=== PATIENT | male | born 1960 | race Caucasian/White ===

== ENCOUNTER → 2016-10-15 | Outpatient (REF) | payer MEDICARE, MEDICAID ==
[~2016-10-15] MED LIST: ASPI1TAB PO; CLOP75TA2 PO; GABA300C2 PO; GLYB5TAB5 PO; LISI5TAB PO; NORCOBULK PO; TRAZ50TA2 PO; VITATAB11 PO
[2016-10-15 12:32] LABS: ALBUMIN/GLOBULIN RATIO 1.43 (1.00-1.93); ALKALINE PHOSPHATASE 100 U/L (45-117); ANION GAP 10 MEQ/L (8-16); BILIRUBIN,TOTAL 0.3 MG/DL (0.2-1.0); BLOOD UREA NITROGEN 15 MG/DL (7-18); CALCIUM LEVEL 8.4 MG/DL (8.5-10.1); CARBON DIOXIDE LEVEL 28 MEQ/L (21-32); CHLORIDE LEVEL 103 MEQ/L (98-107); CREATININE FOR GFR 0.91 MG/DL (0.70-1.30); GLOMERULAR FILTRATION RATE > 60.0 (>56); GLUCOSE, FASTING 185 MG/DL (70-105); POTASSIUM SERUM 4.1 MEQ/L (3.5-5.1); SODIUM LEVEL 141 MEQ/L (136-145); TOTAL PROTEIN 6.8 GM/DL (6.4-8.2)
[2016-10-15 13:06] LABS: ALT/SGPT 54 U/L (12-78); AST/SGOT 18 U/L (15-37)
== END ==
LOC: M LABDRAW1 11:38
PROVIDERS: ATTEND Family Medicine
DX: E11.9 Type 2 diabetes mellitus without complications (principal)

== ENCOUNTER → 2017-04-05 | Outpatient (CLI) | payer MEDICARE, MEDICAID ==
[~2017-04-05] MED LIST changes: +AMLO5TAB2 PO; +ATOR40TA75 PO; +CEPH500C PO; +CLEO300C2 PO; +GABA600T PO; +HYDR12.55 PO; +INSUDET SC; +INVO300T PO; +KEFL500C17 PO; +LOSA100T36 PO; +METF750T PO; +METF850T4 PO; +NORC1TAB4 PO; +NORCOTAB PO; +OMEP10CASR PO; +OXYC1TAB23 PO; +TYLE325T5 PO; +ZOLO100T PO
--- NOTE | 2017-04-10 12:02 | SLEEPCENT ---
DATE OF PROCEDURE: 04/05/2017 REFERRING PHYSICIAN: Dr. Alex Chavarria INTERPRETATION: Nocturnal polysomnography was performed due to concern for the obstructive sleep apnea syndrome in this patient with a history of excessive somnolence and atherosclerotic disease. 6 hours and 45 minutes of data were reviewed. There were 261 minutes of sleep identified. Sleep latency was mildly prolonged at 34 minutes. REM latency was quite prolonged at 278 minutes. Sleep architecture showed poor progression. There was one REM period late in the study. Overall sleep efficiency is 65%. EKG showed a regular rhythm with intraventricular conduction delay. Average heart rate 57 beats per minute. EEG showed reasonably normal waveforms for awake and sleep. There were 100 respiratory events identified of 10 seconds in duration or greater for an apnea/hypopnea index of 22.9. The events were primarily obstructive not exclusive to sleep stage nor body posture. Arousals from respiratory events occurred 11.2 times per hour. Oxygen desaturations were seen in the upper 80s. There was some limb activity noted as well with 2-3 trains of 30 events. Limb movement arousal index was 7.3. IMPRESSION: 1. Moderate to severe obstructive sleep apnea syndrome (G47.33) apnea/hypopnea index 22.9. 2. Mild periodic limb movement disorder (G47.61). Limb movement arousal index 7.3. RECOMMENDATION: The patient should be encouraged to return to the sleep disorder center for pressure therapy. In the interim alcohol and sedative avoidance should be practiced and caution exercised during the operating of motor vehicles. Pending results of pressure therapy, interventions to address the patient's limb activity may also be helpful.
== END ==
LOC: M SLEEP 20:00
PROVIDERS: ATTEND Nurse Practitioner Adult Health
DX: G47.30 Sleep apnea, unspecified (principal)

== ENCOUNTER → 2017-05-19 | Outpatient (CLI) | payer MEDICARE, MEDICAID ==
--- NOTE | 2017-05-23 10:51 | SLEEPCENT ---
DATE OF STUDY: 05/19/2017 ORDERED BY: Ольга Loo NP Nocturnal polysomnography was performed for the titration of pressure therapy in this patient with obstructive sleep apnea syndrome, apnea-hypopnea index of 23. For testing, a ResMed Quattro full face mask of small size was used. An initial pressure of 4 cm of water pressure was applied to the circuit and the lights were extinguished. 7 hours and 17 minutes of data were reviewed. There were 316 minutes of sleep identified. Sleep latency was prolonged at 38 minutes. Rapid eye movement (REM) latency very prolonged at 320 minutes. Sleep architecture remained somewhat fragmented with poor progression until late in the test. There were two REM periods identified. Overall sleep efficiency was fair at 73.1%, but there was a significant reduction in REM time. The patient's EKG showed a sinus rhythm with an average heart rate of 54 beats per minute. EEG showed some coarsening in the background, alpha intrusion into non-REM sleep. No focal events were identified. Persistence of respiratory events prompted an increase in CPAP from 4 to 10, then despite optimal mask fit and minimal air leak, the patient was changed to a bilevel device late in the study. Some persistence of airflow obstruction was seen despite this pressure. There was at that point insufficient time to further titrate. Best sleep was seen on a bilevel therapy at an inspiratory pressure of 12 over expiratory pressure of 8. Some limb activity was again seen during this study. His limb movement arousal index was 14.6. IMPRESSION: 1. Obstructive sleep apnea syndrome (G47.33). 2. Periodic limb movement disorder (G47.61). RECOMMENDATION: Initiation of pressure therapy with a bilevel device, inspiratory pressure of 12 over expiratory pressure of 8 is recommended. Close clinical followup would be prudent given the limited time of bilevel therapy during the titration. If the patient's symptoms are persistent, a retitration from BiPAP may be needed. Once respiratory obstructive events have been addressed, interventions to reduce the frequency of arousals from limb activity may be helpful as well. cc: Alex Chavarria MD
== END ==
LOC: M SLEEP 19:42
PROVIDERS: ATTEND Nurse Practitioner Adult Health
DX: G47.33 Obstructive sleep apnea (adult) (pediatric) (principal)

== ENCOUNTER 2017-07-16 03:36 | Emergency (ER) | payer MEDICARE, MEDICAID ==
[~2017-07-16] VITALS: Ht 170.2 cm; Wt 90.0 kg
[~2017-07-16 03:36] MED LIST changes: -AMLO5TAB2 PO; -ATOR40TA75 PO; -CEPH500C PO; -CLEO300C2 PO; -GABA600T PO; -HYDR12.55 PO; -INSUDET SC; -INVO300T PO; -KEFL500C17 PO; -LOSA100T36 PO; -METF750T PO; -METF850T4 PO; -NORC1TAB4 PO; -NORCOTAB PO; -OMEP10CASR PO; -OXYC1TAB23 PO; -TYLE325T5 PO; -ZOLO100T PO
[2017-07-16] MEDS ORDERED: ATOR40TA75 PO (03:50)
[2017-07-16] MEDS ORDERED: INVO300T PO (03:50)
[2017-07-16] MEDS ORDERED: OMEP10CASR PO (03:50)
[2017-07-16] MEDS ORDERED: LOSA100T36 PO (03:50)
[2017-07-16] MEDS ORDERED: HYDR12.55 PO (03:50)
[2017-07-16] MEDS ORDERED: ZOLO100T PO (03:50)
[2017-07-16] MEDS ORDERED: AMLO5TAB2 PO (03:50)
[2017-07-16] MEDS ORDERED: INSUDET SC (03:50)
[2017-07-16] MEDS ORDERED: METF850T4 PO (03:50)
[2017-07-16] MEDS ORDERED: MORPHINE 4 MG/ML 1ML SYRINGE IV PRN (04:15)
[2017-07-16] MEDS ORDERED: ONDANSETRON 4MG/2ML VIAL (J2405) IV ONE (04:15)
[2017-07-16 04:35] LABS: BASO % 0.1 % (0.0-1.0); EOS # 0.1 10^3/uL (0.0-0.50); EOS % 1.2 % (0.0-3.0); IMMATURE GRANULOCYTE % 0.3 % (0-0); LYMPH # 0.8 10^3/uL (1.5-4.5); LYMPH % 9.7 % (24.0-44.0); MEAN CORPUSCULAR HEMOGLOBIN 27.6 pg (27.0-33.0); MEAN CORPUSCULAR HGB CONC 33.1 g/dl (32.0-36.5); MEAN CORPUSCULAR VOLUME 83.6 fl (80.0-96.0); MONO # 0.7 10^3/uL (0.0-0.8); MONO % 8.2 % (0.0-5.0); NEUTROPHILS # 6.9 10^3/uL (1.8-7.7); NEUTROPHILS % 80.5 % (36.0-66.0); PLATELET COUNT, AUTOMATED 165 10^3/uL (150-450); RED CELL DISTRIBUTION WIDTH 14.2 % (11.5-14.5); WHITE BLOOD COUNT 8.6 10^3/uL (4.0-10.0)
[2017-07-16 04:53] LABS: ANION GAP 6 MEQ/L (8-16); BLOOD UREA NITROGEN 22 MG/DL (7-18); CALCIUM LEVEL 8.7 MG/DL (8.5-10.1); CARBON DIOXIDE LEVEL 29 MEQ/L (21-32); CHLORIDE LEVEL 102 MEQ/L (98-107); CREATININE FOR GFR 0.79 MG/DL (0.70-1.30); GLOMERULAR FILTRATION RATE > 60.0 (>56); GLUCOSE, FASTING 245 MG/DL (70-105); POTASSIUM SERUM 4.9 MEQ/L (3.5-5.1); SODIUM LEVEL 137 MEQ/L (136-145)
--- NOTE | 2017-07-16 06:50 | REPUSA ---
CLINICAL HISTORY: Suspected scrotal abscess. TECHNIQUE: Realtime sonographic images were obtained in multiple projections. COMMENTS: The right testicle measures 4.5x2.3x3 cm. The left testicle measures 4.1x2x2.9 cm. Normal bilateral testicular flow is noted. There are chronic benign calcifications of the left scrotal wall. The left epididymal head measures 1.8 mm. Complex right scrotal wall fluid collection measuring 2.4x1.5x2 cm suggestive of abscess formation. There is a large right hydrocele containing debris. IMPRESSION: Large right hydrocele containing debris. Chronic benign calcifications of the left scrotal wall. Epididymal head cyst measuring 1.8 mm. Right scrotal abscess formation. No evidence of testicular torsion. Thank you for your kind referral of this patient.
[2017-07-16] MEDS ORDERED: cefTRIAXone SOD 1 GM in D5W 50 ML IV ONE (07:15)
[2017-07-16] MEDS ORDERED: KEFL500C17 PO (07:23)
[2017-07-16] MEDS ORDERED: NORCOTAB PO (07:23)
[2017-07-16 08:40] VITALS: BP 155/77
== END 2017-07-16 08:42 | disposition home or self-care (01) ==
LOC: M ED 03:36
DX: N49.2 Inflammatory disorders of scrotum (principal); E11.9 Type 2 diabetes mellitus without complications; I10 Essential (primary) hypertension; Z72.0 Tobacco use
CPT/HCPCS: 76870; 80048; 85025; 87040; 93041; 93976; 94760; 96374; 96375; 99284; J0696; J2405

== ENCOUNTER 2017-07-20 11:47 | Inpatient (IN) | payer MEDICARE, MEDICAID ==
[2017-07-20] VITALS (7 sets, daily range): BP systolic 108–179; BP diastolic 50–88
[~2017-07-20] VITALS: Ht 170.2 cm; Wt 88.6 kg
[~2017-07-20 11:47] MED LIST changes: +AMLO5TAB2 PO; +ATOR40TA75 PO; +HYDR12.55 PO; +INSUDET SC; +INVO300T PO; +KEFL500C17 PO; +LOSA100T36 PO; +METF850T4 PO; +NORCOTAB PO; +OMEP10CASR PO; +ZOLO100T PO
[2017-07-20] MEDS ORDERED: NS 500 ML IV ONE (12:15)
[2017-07-20] MEDS ORDERED: MORPHINE 2 MG/ML 1ML SYRINGE IV ONE ×2 (12:15→14:00)
[2017-07-20 12:27] LABS: BASO % 0.2 % (0.0-1.0); EOS # 0.1 10^3/uL (0.0-0.50); EOS % 1.1 % (0.0-3.0); IMMATURE GRANULOCYTE % 0.8 % (0-0); LYMPH # 0.9 10^3/uL (1.5-4.5); LYMPH % 10.6 % (24.0-44.0); MEAN CORPUSCULAR HEMOGLOBIN 27.1 pg (27.0-33.0); MEAN CORPUSCULAR HGB CONC 33.1 g/dl (32.0-36.5); MEAN CORPUSCULAR VOLUME 81.9 fl (80.0-96.0); MONO # 0.7 10^3/uL (0.0-0.8); MONO % 7.9 % (0.0-5.0); NEUTROPHILS # 6.8 10^3/uL (1.8-7.7); NEUTROPHILS % 79.4 % (36.0-66.0); PLATELET COUNT, AUTOMATED 283 10^3/uL (150-450); RED CELL DISTRIBUTION WIDTH 13.9 % (11.5-14.5); WHITE BLOOD COUNT 8.5 10^3/uL (4.0-10.0)
[2017-07-20 12:35] LABS: INR 0.96
[2017-07-20 12:44] LABS: ANION GAP 7 MEQ/L (8-16); BLOOD UREA NITROGEN 20 MG/DL (7-18); CALCIUM LEVEL 8.8 MG/DL (8.5-10.1); CARBON DIOXIDE LEVEL 32 MEQ/L (21-32); CHLORIDE LEVEL 97 MEQ/L (98-107); CREATININE FOR GFR 1.01 MG/DL (0.70-1.30); GLOMERULAR FILTRATION RATE > 60.0 (>56); GLUCOSE, FASTING 209 MG/DL (70-105); POTASSIUM SERUM 3.3 MEQ/L (3.5-5.1); SODIUM LEVEL 136 MEQ/L (136-145)
[2017-07-20] MEDS ORDERED: ISOVUE-370 76% 100ML VIAL (Q9967) As Ordered ONE (12:51)
[2017-07-20] MEDS ORDERED: cefTRIAXone SOD 1 GM in D5W 50 ML IV ONE (13:30)
[2017-07-20] MEDS ORDERED: PIPERACILLIN/TAZOBACTAM SOD 3.375 GM in D5W 50 ML IV ONE (13:45)
--- NOTE | 2017-07-20 13:48 | REP ---
CT ABDOMEN AND PELVIS WITH CONTRAST: TECHNIQUE: Axial contrast enhanced images from the lung bases to the pubic symphysis using 100 mL Isovue 370 intravenous contrast material with multiplanar reformations. Visualized lung bases demonstrate no evidence of acute infiltrate. The liver, spleen, adrenals, pancreas are unremarkable. There is a right renal cyst. There is no hydronephrosis. There is no abdominal aortic aneurysm with moderate atherosclerotic calcifications noted. I do not see significant adenopathy the abdomen or pelvis. Slightly enlarged right inguinal lymph nodes measure up to 11 mm in short axis. There are small bilateral inguinal hernias containing fat. No bowel wall thickening is seen. The appendix is normal. Urinary bladder is grossly unremarkable. Abscess is noted in the wall of the right scrotum with an oval air and fluid collection measuring 5.5 x 2.4 cm. Hydrocele is seen more inferiorly in the scrotum. IMPRESSION: Right scrotal wall abscess measuring 5.5 x 2.4 cm. No extension superiorly into the abdomen or pelvis. Very mild right inguinal adenopathy. Small inguinal hernias contain fat. No acute intra-abdominal or pelvic abnormality is seen. Signed by Miguel Velázquez MD 07/21/2017 07:53 P
[2017-07-20] MEDS ORDERED: NS 1,000 ML IV SCH (14:05)
[2017-07-20] MEDS ORDERED: ONDANSETRON 4MG/2ML VIAL (J2405) IV PRN ×2 (14:15→18:15)
[2017-07-20] MEDS ORDERED: DEXTROSE 50% 50 ML SYRINGE IV PRN (14:15)
[2017-07-20] MEDS ORDERED: GLUCAGON FOR INJ 1 MG VIAL (J1610) SC PRN (14:15)
[2017-07-20] MEDS ORDERED: ACETAMINOPHEN TAB 650MG DOSE (2X325MG) PO PRN (14:15)
[2017-07-20] MEDS ORDERED: GLUCOSE 4 GM CHEW TABLET PO PRN (14:15)
[2017-07-20] MEDS ORDERED: CEPH500C PO (14:31)
[2017-07-20] MEDS ORDERED: GABA600T PO (14:31)
[2017-07-20] MEDS ORDERED: METF750T PO (14:31)
[2017-07-20] MEDS ORDERED: NORC1TAB4 PO (14:31)
--- NOTE | 2017-07-20 14:47 | PHACANCOPD ---
PHARMACY VANCOMYCIN DOSING Pt Demographics Demographics Patient Age:57 , Weight:85.500 , Gender: male Adjusted Body Weight Date: 07/20/17, Adjusted Body Weight: [73.86] Kg Events Past 24 Hours Events Past 24 Hours: NO: Dialysis, Diuretic Therapy, Change in CrCl, Fever, Elevation in WBC, Pending Diagnostics, Pending Procedures, Other Vancomycin Vancomycin indication: mrsa COVERAGE Vancomycin Target Ranges: 15-20 mcg/ml Vancomycin Load Y/N: Yes Load Dose Date Time Vancomycin Load Dose: 1750MG Date: 07/20/17 Time: 1600 Vancomycin Dose Date: 07/20/17. Current Vancomycin Dose: [1G IV Q12H] Intermittent Dosing?: No Labs Labs Item Value Date Time White Blood Count 8.5 10^3/uL 07/20/17 1219 Creatinine 1.01 MG/DL 07/20/17 1219 Micro Microbiology 07/20/17 Blood Culture, Received Pending 07/20/17 Blood Culture, Received Pending Creatinine Clearance Date:07/20/17. Creatinine Clearance: [73.6ML.MIN.]. Assessment and Plan Maintaining Current Dose?: Yes Reason for dose change: No Dose Change Pharmacist Note Pharmacist Note Date: 07/20/17. Pharmacist note: PT is a 57 year old male being treated with vancomycin for MRSA coverage goal trough 15-20mcg/ml. The pt has not been treated with vancomycin here at [facility] in the past. To obtain goal a 1.75g loading dose will start 07/20/17 @16:00. Maintenance therapy will consist of 1g iv q12h starting 07/21/17 @0400. DIANN VAZQUEZ PHARMACY Jul 20, 2017 14:47
[2017-07-20] MEDS ORDERED: POTASSIUM CHLORIDE 10 MEQ SR TABLET PO ONE (15:00)
--- NOTE | 2017-07-20 15:40 | HPEPDOC ---
General Date of Admission Jul 20, 2017 at 14:05 Chief Complaint The patient is a 57-year-old male Presented to the ER with complaints of scrotal swelling and pain. History of Present Illness Patient is a 57 year old male with a PMHx of CAD (no stents), PVD (s/ p bilateral bypass grafting 2013, 2014), HTN, DLP, IDDM2 and chronic back pain who presented to the ER with complaints of scrotal swelling and pain. Patient notes that he was in the ER on 07/16/17 and was given a script for antibiotics and pain control and sent home with follow up with Urology. He notes that at that time it was a small bump, that was red and tender without any drainage. However, over the next few days he has been experiencing worsening of the size, pain, redness and swelling around the scrotum. He has also noted that there has been drainage from the bump and a color change. He notes that he has had a fever on Thursday of 101.0F and has been experiencing chills. He described the pain as a 10/10, aching / squeezing nature, throbbing, localized, alleviated with pain meds and worsened with movement. He denies any nausea, vomiting, chest pain, shortness of breath, palpitations, abdominal pain, constipation, diarrhea or urinary discomfort. He does note a chronic cough. Home Medications Scheduled Amlodipine Besylate (Amlodipine Besylate) 5 Mg Tab, 5 MG PO DAILY, (Reported) Atorvastatin Calcium (Atorvastatin Calcium) 40 Mg Tab, 40 MG PO QHS, (Reported) Canagliflozin (Invokana) 300 Mg Tab, 300 MG PO DAILY, (Reported) Cephalexin Monohydrate (Cephalexin) 500 Mg Cap, 500 MG PO Q6H, (Reported) Clopidogrel Bisulfate (Clopidogrel) 75 Mg Tab, 75 MG PO DAILY, (Reported) Gabapentin (Gabapentin) 600 Mg Tab, 600 MG PO TID, (Reported) Hydrochlorothiazide (Hydrochlorothiazide) 12.5 Mg Tab, 12.5 MG PO DAILY, ( Reported) Insulin Detemir (Levemir) 1 Units/0.01 Ml Susp, 55 UNITS SC BID, (Reported) Losartan Potassium (Losartan Potassium) 100 Mg Tab, 100 MG PO DAILY, (Reported) Metformin Hydrochloride (Metformin HCl ER) 750 Mg Tab, 750 MG PO QHS, (Reported) Omeprazole (PriLOSEC) 10 Mg Capcr, 20 MG PO DAILY, (Reported) Sertraline Hcl (Zoloft) 100 Mg Tab, 150 MG PO DAILY, (Reported) Scheduled PRN Acetaminophen/Hydrocodone (Franklin 5-325 mg) 1 Tab Tab, 1 TAB PO Q6H PRN for PAIN, (Reported) Allergies Coded Allergies: No Known Drug Allergy (Verified Allergy, Unknown, 11/23/13) Past Medical History Medical History CAD (no stents), PVD (s/p bilateral bypass grafting 2013, 2014), HTN, DLP, IDDM2 and chronic back pain Surgical History Bypass of bilateral lower extremities for PVD Family History - Mother unknown - Father with history of lung cancer from smoking Social History - Social alcohol use; Ex-smoker, quit 2 years prior, smoker of 45 years at 1ppd , Smokes marijuana - Denies recent travel or sick contacts - Lives with - Occupation; Disabled Review of Symptoms Other systems Negative otherwise stated in HPI Vital Signs - Vitals: BP 127/80, HR 80, RR 18, Sat 95%RA, Temp 97.F - General: Lying in bed, No acute distress, Speaking in full sentences, AAOx3 - HEENT: NC, AT, PERRLA, EOMI - CVS: RRR, +S1S2 - Lungs: Fair air entry bilaterally, No appreciable wheezing / rales / rhonchi - Abdomen: Soft, Non-distended, Non-tender, + Bowel sounds x 4 - : Right scrotum wall with dark lesion, draining yellowish pus, foul odor, diffusely swollen, tender diffusely, erythematous diffusely - Extremities: No lower extremity edema, No calf tenderness - Neuro: No focal motor or sensory deficit - Skin: No visible rashes Laboratory Data Labs 24H Laboratory Tests 2 07/20/17 12:19: Immature Granulocyte % (Auto) 0.8H, White Blood Count 8.5, Red Blood Count 4.42 , Hemoglobin 12.0L, Hematocrit 36.2L, Mean Corpuscular Volume 81.9, Mean Corpuscular Hemoglobin 27.1, Mean Corpuscular Hemoglobin Concent 33.1, Red Cell Distribution Width 13.9, Platelet Count 283, Neutrophils (%) (Auto) 79.4H, Lymphocytes (%) (Auto) 10.6L, Monocytes (%) (Auto) 7.9H, Eosinophils (%) (Auto) 1.1, Basophils (%) (Auto) 0.2, Neutrophils # (Auto) 6.8, Lymphocytes # (Auto) 0.9L, Monocytes # (Auto) 0.7, Eosinophils # (Auto) 0.1, Basophils # (Auto) 0.0, Immature Granulocyte # (Auto) 0.1H, Nucleated Red Blood Cells % (auto) 0.0, Prothrombin Time 12.9, Prothromb Time International Ratio 0.96, Activated Partial Thromboplast Time 28.8, Anion Gap 7L, Glomerular Filtration Rate > 60.0 , Blood Urea Nitrogen 20H, Creatinine 1.01, Sodium Level 136, Potassium Level 3.3L, Chloride Level 97L, Carbon Dioxide Level 32, Calcium Level 8.8 07/20/17 14:11: Lactic Acid Level < 0.4L CBC/BMP Laboratory Tests 07/20/17 12:19 Red Blood Count 4.42, Mean Corpuscular Volume 81.9, Mean Corpuscular Hemoglobin 27.1, Mean Corpuscular Hemoglobin Concent 33.1, Red Cell Distribution Width 13.9 , Neutrophils (%) (Auto) 79.4 H, Lymphocytes (%) (Auto) 10.6 L, Monocytes (%) ( Auto) 7.9 H, Eosinophils (%) (Auto) 1.1, Basophils (%) (Auto) 0.2, Neutrophils # (Auto) 6.8, Lymphocytes # (Auto) 0.9 L, Monocytes # (Auto) 0.7, Eosinophils # (Auto) 0.1, Basophils # (Auto) 0.0, Calcium Level 8.8 Microbiology Microbiology 07/20/17 Blood Culture, Received Pending 07/20/17 Blood Culture, Received Pending Plan / VTE VTE Prophylaxis Ordered?: Yes Plan / Urinary Catheter Reason for insertion/continuin: Perioperative Plan Plan Cellulitis of scrotal wall with abscess - 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 Che) has been consulted in the ER by Dr. Angelique Pond; reported to be taking to OR today - Will keep NPO - Started Vancomycin, Zosyn and IV fluid hydration Hypokalemia - s/p Supplementation Normocytic anemia - will continue to follow CAD (no stents) - c/w Plavix PVD - s/p bilateral bypass grafting in 2013 and 2014 - c/w Plavix HTN - c/w Losartan and Amlodipine - Hold HCTZ DLP - c/w Atorvastatin IDDM2 - c/w Levemir at reduced dose (from 55 BID to 45 BID) - added Insulin sliding scale Chronic back pain - Will start pain control for above - Hold home Franklin Depression - c/w Sertraline GERD - c/w Omeprazole DVT prophylaxis - Will start SCDs (re: Surgery tonight) LUZ MAY MD Jul 20, 2017 15:40
[2017-07-20] MEDS: VANCOMYCIN HCL 1,000 MG, VIAL MATE ADAPTER 1 EACH in D5W 250 ML IV SCH (15:59)
[2017-07-20] MEDS ORDERED: BUPIVACAINE HCL 0.25% 30 ML VIAL As Ordered ONE (16:43)
[2017-07-20] MEDS ORDERED: VANCOMYCIN HCL 750 MG, VIAL MATE ADAPTER 1 EACH in D5W 250 ML IV ONE (17:00)
--- NOTE | 2017-07-20 17:03 | SMCUROLCON ---
Urology Consultation General Date of Consultation 07/20/17 Reason For Consultation This patient is seen for Abscess Of Scrotal Wall Cellulitis Of Scrotum. History of Present Illness This is a 57 y/o M w/ a PMH significant for HTN, DM2, CAD, and PVD (s/p LE stenting and on plavix), presenting to the ER after being seen by his PCP in the office today for a right scrotal abscess. He notes that this first appeared as a small boil about 1 week ago. He was seen in the ER last and a scrotal US then showed a 2.5cm right scrotal abscess as well as a large right hydrocele. At the time he was afebrile and had minimal pain. He was sent home on a course of PO antibiotics and notes that over the weekend the swelling and pain worsened. He also developed fevers to 101 degrees. After being seen by his PCP today, he was sent over to the ER. A CT A/P in the ER today was notable for a 5.5cm right scrotal wall abscess. Past Medical History Medical History see HPI Surgical Hstory see HPI Medications Current Medications Current Medications Acetaminophen (Tylenol Tab) 650 mg Q4HP PRN PO MILD PAIN OR FEVER; Start 07/20 at 14:15; Stop 08/19/17 at 14:14 Amlodipine Besylate (Norvasc) 5 mg DAILY PO ; Start 07/21/17 at 09:00; Stop at 08:59 Atorvastatin Calcium (Lipitor) 40 mg QHS PO ; Start 07/20/17 at 21:00; Stop at 20:59 Clopidogrel Bisulfate (PLAVix) 75 mg DAILY PO ; Start 07/21/17 at 09:00; Stop 08/20/17 at 08:59 Dextrose (Dextrose 50%) 25 ml ASDIRECTED PRN IV SEE LABEL COMMENTS; Start at 14:15; Stop 08/19/17 at 14:14 Gabapentin (Neurontin) 600 mg TID PO ; Start 07/20/17 at 16:00; Stop 08/19/17 at 15:59 Glucagon (Glucagon) 1 mg ASDIRECTED PRN SC SEE LABEL COMMENTS; Start 07/20/17 at 14:15; Stop 08/19/17 at 14:14 Glucose (Glucose) 16 GM ASDIRECTED PRN PO SEE LABEL COMMENTS; Start 07/20/17 at 14:15; Stop 08/19/17 at 14:14 Home Med (Med Rec Complete!) ASDIRECTED XX ; Start 07/20/17 at 14:45; Stop at 14:45; Status DC Insulin Detemir (Levemir Insulin) 45 units BID SC ; Start 07/20/17 at 21:00; Stop 08/19/17 at 20:59 Insulin Human Lispro (HumaLOG INSULIN) SEE PROTOCOL TABLE AC SC ; Start at 17:30; Stop 08/19/17 at 17:29 Insulin Human Lispro (HumaLOG INSULIN) SEE PROTOCOL TABLE QHS SC ; Start at 21:00; Stop 08/19/17 at 20:59 Losartan Potassium (Cozaar) 100 mg DAILY PO ; Start 07/21/17 at 09:00; Stop at 08:59 Morphine Sulfate (Morphine Sulfate Inj) 2 mg Q4HP PRN IV PAIN; Start 07/20/17 at 14:15; Stop 07/27/17 at 14:14 Omeprazole (PriLOSEC) 20 mg DAILY PO ; Start 07/21/17 at 09:00; Stop 08/20/17 at 08:59 Ondansetron HCl (ZOFRAN INJection) 4 mg Q6HP PRN IV NAUSEA OR VOMITING; Start 07/20/17 at 14:15; Stop 08/19/17 at 14:14 Pantoprazole Sodium (Protonix) 40 mg Q24H IV ; Start 07/20/17 at 21:00; Stop 07/20/17 at 21:00; Status DC Piperacillin Sod/ Tazobactam Sod 3.375 gm/Dextrose 50 ml @ 50 mls/hr Q8H IV ; Start 07/20/17 at 22:00; Stop 07/27/17 at 21:59 Sertraline HCl (Zoloft) 150 mg DAILY PO ; Start 07/21/17 at 09:00; Stop at 08:59 Sodium Chloride 1,000 ml @ 80 mls/hr [id number] IV Last administered on t 15:22; Start 07/20/17 at 14:05; Stop 08/19/17 at 14:04 Vancomycin HCl 1000 mg/IV Miscellaneous Supplies 1 each/ Dextrose 270 ml @ 270 mls/hr Q12H IV Last administered on 07/20/17t 15:59; Start 07/20/17 at 16:00 ; Stop 07/27/17 at 15:59 Allergies Allergies: Coded Allergies: No Known Drug Allergy (Verified Allergy, Unknown, 11/23/13) Review of Systems General: Reports: Normal Appetite, Denies: Fatigue, Malaise Constitutional: Reports: Fever Skin: Denies: Rash, Lesions, Breakdown, Nail Changes Pulmonary: Denies: Dyspnea, Cough Cardiovascular: Denies Chest Pain, Denies Palpitations Gastrointestinal: Denies: Nausea, Vomiting, Abdominal Pain Genitourinary: Reports: Other Symptoms (right scrotal swelling and pain), Denies: Dysuria, Frequency, Incontinence, Hematuria Neurological: Denies: Weakness, Numbness, Incoordination, Change in Speech Psych: Reports: Mood Normal, Denies: Anxiety, Depression Physical Examination General Exam: Alert, No Acute Distress ENT EXAM: Atraumatic Chest Exam: Clear to auscultation Heart Exam: Rate Normal, Regular Rhythm Abdomen Exam: Soft, No: Tenderness Male Exam 2-3cm area of necrosis on right hemiscrotum along w/ edema and tenderness; left hemiscrotum, perineum, and phallus appear uninvolved Skin Exam: Nl turgor and temperature Neuro Exam: Normal Speech Psych Exam: Mental status NL Vital Signs/I&O Vital Signs Date Time Temp Pulse Resp B/P (MAP) Pulse Ox O2 Delivery O2 Flow Rate FiO2 07/20/17 16:31 98.0 60 18 130/67 (88) 95 Room Air I&O- Last 24 Hours up to 6 AM 07/21/17 06:00 Intake Total 500 ml Balance 500 ml Laboratory Data 24H Labs Laboratory Tests 2 07/20/17 12:19: Immature Granulocyte % (Auto) 0.8H, White Blood Count 8.5, Red Blood Count 4.42 , Hemoglobin 12.0L, Hematocrit 36.2L, Mean Corpuscular Volume 81.9, Mean Corpuscular Hemoglobin 27.1, Mean Corpuscular Hemoglobin Concent 33.1, Red Cell Distribution Width 13.9, Platelet Count 283, Neutrophils (%) (Auto) 79.4H, Lymphocytes (%) (Auto) 10.6L, Monocytes (%) (Auto) 7.9H, Eosinophils (%) (Auto) 1.1, Basophils (%) (Auto) 0.2, Neutrophils # (Auto) 6.8, Lymphocytes # (Auto) 0.9L, Monocytes # (Auto) 0.7, Eosinophils # (Auto) 0.1, Basophils # (Auto) 0.0, Immature Granulocyte # (Auto) 0.1H, Nucleated Red Blood Cells % (auto) 0.0, Prothrombin Time 12.9, Prothromb Time International Ratio 0.96, Activated Partial Thromboplast Time 28.8, Anion Gap 7L, Glomerular Filtration Rate > 60.0 , Blood Urea Nitrogen 20H, Creatinine 1.01, Sodium Level 136, Potassium Level 3.3L, Chloride Level 97L, Carbon Dioxide Level 32, Calcium Level 8.8 07/20/17 14:11: Lactic Acid Level < 0.4L CBC/BMP Laboratory Tests 07/20/17 12:19 Red Blood Count 4.42, Mean Corpuscular Volume 81.9, Mean Corpuscular Hemoglobin 27.1, Mean Corpuscular Hemoglobin Concent 33.1, Red Cell Distribution Width 13.9 , Neutrophils (%) (Auto) 79.4 H, Lymphocytes (%) (Auto) 10.6 L, Monocytes (%) ( Auto) 7.9 H, Eosinophils (%) (Auto) 1.1, Basophils (%) (Auto) 0.2, Neutrophils # (Auto) 6.8, Lymphocytes # (Auto) 0.9 L, Monocytes # (Auto) 0.7, Eosinophils # (Auto) 0.1, Basophils # (Auto) 0.0, Calcium Level 8.8 Microbiology Microbiology 07/20/17 Blood Culture, Received Pending 07/20/17 Blood Culture, Received Pending Assessment This is a 57 y/o M w/ a scrotal abscess. WBC 8.5. He has been afebrile since arrival to the ER. Plan - informed consent signed for incision and drainage of scrotal abscess - continue broad-spectrum antibiotics per hospitalist group - will obtain cultures in the OR - last dose of plavix was this morning - please hold for now - NPO until OR MICKIE CEJA MD Jul 20, 2017 17:02
[2017-07-20] MEDS ORDERED: PROPOFOL 200 MG/20 ML VIAL As Ordered ONE (17:22)
[2017-07-20] MEDS ORDERED: dexameTHASONE 4 MG/ML 1ML VIAL (J1100) As Ordered ONE (17:22)
[2017-07-20] MEDS ORDERED: fentaNYL 250 MCG/5 ML INJECTION (J3010) As Ordered ONE (17:22)
[2017-07-20] MEDS ORDERED: MIDAZOLAM INJ 2 MG/2 ML VIAL (J2250) As Ordered ONE (17:22)
[2017-07-20] MEDS ORDERED: ONDANSETRON 4MG/2ML VIAL (J2405) As Ordered ONE (17:23)
[2017-07-20] MEDS ORDERED: METOCLOPRAMIDE INJ 10MG/2ML VIAL (J2765) As Ordered ONE (17:23)
[2017-07-20] MEDS ORDERED: ePHEDrine SULFATE 25 MG/5 ML(5MG/ML) SYRINGE As Ordered ONE (17:26)
[2017-07-20] MEDS: fentaNYL 100 MCG/2 ML INJECTION (J3010) IV PRN ×6 (18:10→18:48)
[2017-07-20] MEDS ORDERED: fentaNYL 100 MCG/2 ML INJECTION (J3010) As Ordered ONE ×2 (18:12→18:45)
[2017-07-20] MEDS ORDERED: PERCOCET 5MG/325MG TAB As Ordered ONE ×2 (18:12→18:48)
[2017-07-20] MEDS ORDERED: MEPERIDINE INJ 25 MG/ML VIAL (J2175) IV PRN (18:15)
[2017-07-20] MEDS ORDERED: METOCLOPRAMIDE INJ 10MG/2ML VIAL (J2765) IV PRN (18:15)
[2017-07-20] MEDS ORDERED: LR 1,000 ML IV SCH (18:15)
[2017-07-20] MEDS: PERCOCET 5MG/325MG TAB PO PRN ×2 (18:20→18:50)
--- NOTE | 2017-07-20 18:55 | ECGEPIP ---
Stationary ECG Study [place] - ED Test Date: 2017-07-20 Pat Name: AVA CANNON Department: Room: - Gender: M [employer]: JT : [id number] Requested By: JOHN River Order Number: [id number] Reading MD: Beck Gaspar Measurements Intervals Floral Rate: 67 P: 38 NV: 205 QRS: 264 QRSD: 157 T: 30 QT: 445 QTc: 473 Interpretive Statements SINUS RHYTHM MARKED RIGHT AXIS DEVIATION RIGHT BUNDLE BRANCH BLOCK NO PRIORS Electronically Signed On 07-20-2017 18:55:30 EDT by Beck Gaspar
[2017-07-20] MEDS: HumaLOG INSULIN (NovoLOG) PER UNIT SC SCH ×2 (19:42→21:00)
[2017-07-20] MEDS: GABAPENTIN 300 MG CAP PO SCH ×2 (19:42→21:55)
--- NOTE | 2017-07-20 20:23 | RO ---
DATE OF PROCEDURE: 07/20/2017 PREPROCEDURE DIAGNOSIS: Scrotal abscess. POSTPROCEDURE DIAGNOSIS: Scrotal abscess. PROCEDURE: Incision and drainage of scrotal abscess and debridement of necrotic scrotal tissue. SURGEON: Yan Che MD [employer] SUPERVISOR: None. ANESTHESIA: General. OPERATIVE INDICATIONS: This is a 57-year-old male who presented to the emergency room, was found to have a 5 cm right scrotal wall abscess. He notes it has been getting worse over the last view days and the pain is worsening. He has been having fevers as well. On examination, he is starting to have some skin necrosis. It was recommended that he be brought to the operating room today for the above listed procedure. DESCRIPTION OF PROCEDURE: The patient was brought to the operating room where general anesthesia was induced. Prophylactic broad-spectrum antibiotics were already infused. He was then placed in the dorsal lithotomy position and prepped and draped in the usual sterile fashion. At this point, a Palafox catheter was inserted into the urethral meatus and advanced into the bladder. The balloon was filled with 10 mL of sterile water. The catheter was connected to the gravity drainage. I then made an incision around the necrotic appearing areas on the right hemiscrotum. All this necrotic tissue was then excised using Metzenbaum scissors. While excising the tissue, pus started to drain. At this point, a culture swab was utilized to obtain cultures of the purulent material. After excising all the necrotic tissue, all the pus had drained out. All the tissue beneath this area did appear to be viable. At this point, I thoroughly irrigated the scrotal wound using normal saline. There did appear to be a moderate amount of bleeding as the patient had been on Plavix through this morning. I tried cauterizing some of the areas of bleeding, but this was not very successful. At this point, I just held compression for several minutes and this stopped the bleeding. Once done, this marked the conclusion of the procedure. I then placed wet to dry dressings using minimally moist 4 x 4, gauze to cover by ABD gauze pads. Mesh underwear were then applied and this marked the conclusion of the procedure. The patient was then awakened from anesthesia, transported to the recovery room in stable condition. ESTIMATED BLOOD LOSS: 100 mL INTRAOPERATIVE COMPLICATIONS: None SPECIMENS: Cultures of right scrotal wall abscess. PLAN: The patient will be kept in the hospital under the hospitalist service on broad-spectrum antibiotics. I will followup culture results. His catheter can be removed tomorrow morning. I will ultimately continue to pack the wound lightly and change it twice daily for now. Ultimately when he goes home will probably start changing it once daily. [employer]
[2017-07-20] MEDS ORDERED: PANTOPRAZOLE 40MG INJ (PROTONIX) (C9113) IV SCH (21:00)
[2017-07-20] MEDS: ATORVASTATIN 20 MG TAB PO SCH (21:55)
[2017-07-20] MEDS: PIPERACILLIN/TAZOBACTAM SOD 3.375 GM in D5W 50 ML IV SCH (21:55)
[2017-07-20] MEDS: LEVEMIR (INSULIN DETEMIR) 1 UNITS/0.01ML SC SCH (21:56)
[2017-07-21 00:30] VITALS: BP 110/58
[2017-07-21] MEDS: MORPHINE 2 MG/ML 1ML SYRINGE IV PRN ×5 (01:16→18:19)
[2017-07-21 04:39] VITALS: BP 130/78
[2017-07-21] MEDS: VANCOMYCIN HCL 1,000 MG, VIAL MATE ADAPTER 1 EACH in D5W 250 ML IV SCH ×2 (04:39→16:13)
[2017-07-21] MEDS: PIPERACILLIN/TAZOBACTAM SOD 3.375 GM in D5W 50 ML IV SCH ×3 (06:34→21:01)
[2017-07-21 06:57] LABS: BASO % 0.2 % (0.0-1.0); LYMPH # 0.6 10^3/uL (1.5-4.5); LYMPH % 7.2 % (24.0-44.0); MEAN CORPUSCULAR HEMOGLOBIN 27.3 pg (27.0-33.0); MEAN CORPUSCULAR HGB CONC 32.7 g/dl (32.0-36.5); MEAN CORPUSCULAR VOLUME 83.6 fl (80.0-96.0); MONO # 0.3 10^3/uL (0.0-0.8); MONO % 3.6 % (0.0-5.0); NEUTROPHILS # 7.8 10^3/uL (1.8-7.7); PLATELET COUNT, AUTOMATED 260 10^3/uL (150-450); WHITE BLOOD COUNT 8.8 10^3/uL (4.0-10.0)
[2017-07-21 07:32] LABS: ALBUMIN 2.7 GM/DL (3.2-5.2); ALBUMIN/GLOBULIN RATIO 0.68 (1.00-1.93); ALKALINE PHOSPHATASE 92 U/L (45-117); ALT/SGPT 20 U/L (12-78); ANION GAP 4 MEQ/L (8-16); AST/SGOT 10 U/L (15-37); BILIRUBIN,TOTAL 0.4 MG/DL (0.2-1.0); BLOOD UREA NITROGEN 16 MG/DL (7-18); CALCIUM LEVEL 7.7 MG/DL (8.5-10.1); CARBON DIOXIDE LEVEL 32 MEQ/L (21-32); CHLORIDE LEVEL 101 MEQ/L (98-107); GLOMERULAR FILTRATION RATE > 60.0 (>56); GLUCOSE, FASTING 120 MG/DL (70-105); MAGNESIUM LEVEL 2.4 MG/DL (1.8-2.4); POTASSIUM SERUM 3.7 MEQ/L (3.5-5.1); SODIUM LEVEL 137 MEQ/L (136-145); TOTAL PROTEIN 6.7 GM/DL (6.4-8.2)
[2017-07-21 08:00] VITALS: BP 127/73
[2017-07-21] MEDS ORDERED: MORPHINE 2 MG/ML 1ML SYRINGE IV ONE (08:00)
[2017-07-21] MEDS: OMEPRAZOLE 20 MG CAP PO SCH (08:34)
[2017-07-21] MEDS: GABAPENTIN 300 MG CAP PO SCH ×3 (08:34→21:01)
[2017-07-21] MEDS: LEVEMIR (INSULIN DETEMIR) 1 UNITS/0.01ML SC SCH ×2 (08:35→21:01)
[2017-07-21] MEDS: HumaLOG INSULIN (NovoLOG) PER UNIT SC SCH ×4 (08:35→20:45)
--- NOTE | 2017-07-21 08:52 | IPNPDOC ---
Assessment/Plan Date Seen The patient was seen on 07/21/17. Patient Summary This is a 57 y/o M POD1 s/p I&D of scrotal abscess and debridement of necrotic scrotal skin. His pain is better this morning. The wound looks clean. His WBC is normal. He is afebrile. Plan/VTE VTE Prophylaxis Ordered?: Yes Plan/Urinary Catheter Urinary Catheter: D/C Fletcher Reason for insertion/continuin: Perioperative Plan - continue broad spectrum antibiotics - f/u culture results - continue bid wet-to-dry dressing changes - morphine/percocet prn pain - please continue to hold plavix for now (ASA 81mg is ok) - d/c fletcher Subjective Review oF Systems Chief Complaint The patient is a 57-year-old male admitted with a reason for visit of Abscess Of Scrotal Wall Cellulitis Of Scrotum. Events since Last Encounter No acute events o/n. Patient notes that his scrotal pain is much better. He denies fevers. No n/v. 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 - no active drainage; catheter in place draining clear urine Vital Signs/I&O Vital Signs Date Time Temp Pulse Resp B/P (MAP) Pulse Ox O2 Delivery O2 Flow Rate FiO2 07/21/17 07:57 18 96 Room Air 07/21/17 04:39 60 130/78 (95) 2.0 07/21/17 00:30 96.0 07/20/17 18:43 97 I&O- Last 24 Hours up to 6 AM 07/22/17 05:59 Intake Total 990 ml Output Total 800 ml Balance 190 ml Laboratory Data Labs 24H Laboratory Tests 2 07/20/17 12:19: Immature Granulocyte % (Auto) 0.8H, White Blood Count 8.5, Red Blood Count 4.42 , Hemoglobin 12.0L, Hematocrit 36.2L, Mean Corpuscular Volume 81.9, Mean Corpuscular Hemoglobin 27.1, Mean Corpuscular Hemoglobin Concent 33.1, Red Cell Distribution Width 13.9, Platelet Count 283, Neutrophils (%) (Auto) 79.4H, Lymphocytes (%) (Auto) 10.6L, Monocytes (%) (Auto) 7.9H, Eosinophils (%) (Auto) 1.1, Basophils (%) (Auto) 0.2, Neutrophils # (Auto) 6.8, Lymphocytes # (Auto) 0.9L, Monocytes # (Auto) 0.7, Eosinophils # (Auto) 0.1, Basophils # (Auto) 0.0, Immature Granulocyte # (Auto) 0.1H, Nucleated Red Blood Cells % (auto) 0.0, Prothrombin Time 12.9, Prothromb Time International Ratio 0.96, Activated Partial Thromboplast Time 28.8, Anion Gap 7L, Glomerular Filtration Rate > 60.0 , Blood Urea Nitrogen 20H, Creatinine 1.01, Sodium Level 136, Potassium Level 3.3L, Chloride Level 97L, Carbon Dioxide Level 32, Calcium Level 8.8 07/20/17 14:11: Lactic Acid Level < 0.4L 07/20/17 16:55: Bedside Glucose (Misc Panel) 122H 07/20/17 18:04: Bedside Glucose (Misc Panel) 110H 07/20/17 21:57: Bedside Glucose (Misc Panel) 248H 07/21/17 01:08: Urine Appearance HAZY, Urine Color STRAW, Urine pH 5.0, Urine Specific [place] 1.032, Urine Protein NEGATIVE, Urine Glucose (UA) 3+H, Urine Ketones TRACEH, Urine Urobilinogen 0.2, Urine Bilirubin NEGATIVE, Urine Leukocyte Esterase NEGATIVE, Urine Blood 2+H, Urine Nitrite NEGATIVE, Urine WBC (Auto) 2, Urine RBC (Auto) 30H, Urine Hyaline Casts (Auto) 0, Urine Bacteria (Auto) NEGATIVE, Urine Squamous Epithelial Cells 0, Urine Mucus (Auto) SMALL, Urine Sperm (Auto) 07/21/17 06:23: Immature Granulocyte % (Auto) 1.0H, White Blood Count 8.8, Red Blood Count 3.77L , Hemoglobin 10.3L, Hematocrit 31.5L, Mean Corpuscular Volume 83.6, Mean Corpuscular Hemoglobin 27.3, Mean Corpuscular Hemoglobin Concent 32.7, Red Cell Distribution Width 14.0, Platelet Count 260, Neutrophils (%) (Auto) 88.0H, Lymphocytes (%) (Auto) 7.2L, Monocytes (%) (Auto) 3.6, Eosinophils (%) (Auto) 0.0, Basophils (%) (Auto) 0.2, Neutrophils # (Auto) 7.8H, Lymphocytes # (Auto) 0.6L, Monocytes # (Auto) 0.3, Eosinophils # (Auto) 0.0, Basophils # (Auto) 0.0, Immature Granulocyte # (Auto) 0.1H, Nucleated Red Blood Cells % (auto) 0.0, Anion Gap 4L, Glomerular Filtration Rate > 60.0, Blood Urea Nitrogen 16, Creatinine 0.70, Sodium Level 137, Potassium Level 3.7, Chloride Level 101, Carbon Dioxide Level 32, Calcium Level 7.7L, Aspartate Amino Transf (AST/SGOT) 10L, Alanine Aminotransferase (ALT/SGPT) 20, Alkaline Phosphatase 92, Total Bilirubin 0.4, Total Protein 6.7, Albumin 2.7L, Magnesium Level 2.4, Albumin/ Globulin Ratio 0.68L CBC/BMP Laboratory Tests 07/20/17 12:19 Red Blood Count 4.42, Mean Corpuscular Volume 81.9, Mean Corpuscular Hemoglobin 27.1, Mean Corpuscular Hemoglobin Concent 33.1, Red Cell Distribution Width 13.9 , Neutrophils (%) (Auto) 79.4 H, Lymphocytes (%) (Auto) 10.6 L, Monocytes (%) ( Auto) 7.9 H, Eosinophils (%) (Auto) 1.1, Basophils (%) (Auto) 0.2, Neutrophils # (Auto) 6.8, Lymphocytes # (Auto) 0.9 L, Monocytes # (Auto) 0.7, Eosinophils # (Auto) 0.1, Basophils # (Auto) 0.0, Calcium Level 8.8 07/21/17 06:23 Red Blood Count 3.77 L, Mean Corpuscular Volume 83.6, Mean Corpuscular Hemoglobin 27.3, Mean Corpuscular Hemoglobin Concent 32.7, Red Cell Distribution Width 14.0, Neutrophils (%) (Auto) 88.0 H, Lymphocytes (%) (Auto) 7.2 L, Monocytes (%) (Auto) 3.6, Eosinophils (%) (Auto) 0.0, Basophils (%) (Auto ) 0.2, Neutrophils # (Auto) 7.8 H, Lymphocytes # (Auto) 0.6 L, Monocytes # (Auto ) 0.3, Eosinophils # (Auto) 0.0, Basophils # (Auto) 0.0, Calcium Level 7.7 L, Aspartate Amino Transf (AST/SGOT) 10 L, Alanine Aminotransferase (ALT/SGPT) 20, Alkaline Phosphatase 92, Total Bilirubin 0.4, Total Protein 6.7, Albumin 2.7 L FSBS Laboratory Tests Test 07/20/17 16:55 07/20/17 18:04 07/20/17 21:57 Range/Units Bedside Glucose (Misc Panel) 122 110 248 70-105 MG/DL Microbiology Microbiology 07/20/17 Blood Culture, Received Pending 07/20/17 Blood Culture, Received Pending 07/20/17 Wound Culture, Received Pending 07/20/17 Anaerobic Culture, Received Pending 07/21/17 Urine Culture, Received Pending MICKIE CEJA MD Jul 21, 2017 08:52
[2017-07-21] MEDS: LOSARTAN 50 MG TAB PO SCH (09:00)
[2017-07-21] MEDS ORDERED: MORPHINE 2 MG/ML 1ML SYRINGE IV PRN (09:00)
[2017-07-21] MEDS ORDERED: CLOPIDOGREL 75 MG TAB PO SCH (09:00)
[2017-07-21] MEDS: SERTRALINE HCL 50 MG TAB PO SCH (11:28)
[2017-07-21] MEDS: amLODIPine 5 MG TAB PO SCH (11:28)
[2017-07-21 11:29] VITALS: BP 138/70
[2017-07-21 16:00] VITALS: BP 127/73
--- NOTE | 2017-07-21 18:18 | IPNPDOC ---
Text Note Date of Service The patient was seen on 07/21/17. NOTE Subjective: Less scrotal pain and discomfort. no fever or chills, fletcher was dc ed this am with normal voiding after that. Physical exam: - General: Lying in bed, No acute distress, Speaking in full sentences, AAOx3 - HEENT: NC, AT, PERRLA, EOMI - CVS: RRR, +S1S2 - Lungs: Fair air entry bilaterally, No appreciable wheezing / rales / rhonchi - Abdomen: Soft, Non-distended, Non-tender, + Bowel sounds x 4 - : Right scrotum wall erythematous with surgical incision with dressing on it. - Extremities: No lower extremity edema, No calf tenderness - Neuro: No focal motor or sensory deficit - Skin: No visible rashes Assessment: This is a 57 y/o M admitted with scrotal abscess and cellulitis. Plan Cellulitis of scrotal wall with abscess - - Failed outpatient treatment with Cephalexin - Presented with worsening swelling, tenderness and drainage of scrotal cellulitis / abscess - No leukocytosis, no lactic acidosis - CT abdomen / pelvis w/ contrast 07/20: R scrotal wall abscess (5.5 x 2.4 cm), R inguinal adenopathy, small inguinal hernia - f/u Blood cultures, Urine cultures, UA - S/p incision and drainage on 07/20 by Urology (Dr. Che) - On Vancomycin, Zosyn and IV fluid hydration Hypokalemia - s/p Supplementation Normocytic anemia - will continue to follow CAD (no stents) - c/w Plavix PVD - s/p bilateral bypass grafting in 2013 and 2014 - c/w Plavix HTN - c/w Losartan and Amlodipine - Hold HCTZ DLP - c/w Atorvastatin IDDM2 - c/w Levemir at reduced dose (from 55 BID to 45 BID) - added Insulin sliding scale Chronic back pain -continue gabapentin , on prn morphine. - Hold home [place] Depression - c/w Sertraline GERD - c/w Omeprazole DVT prophylaxis - Will start SCDs (re: Surgery tonight) VS,Fishbone, I+O VS, Fishbone, I+O Laboratory Tests 07/21/17 06:23 Red Blood Count 3.77 L, Mean Corpuscular Volume 83.6, Mean Corpuscular Hemoglobin 27.3, Mean Corpuscular Hemoglobin Concent 32.7, Red Cell Distribution Width 14.0, Neutrophils (%) (Auto) 88.0 H, Lymphocytes (%) (Auto) 7.2 L, Monocytes (%) (Auto) 3.6, Eosinophils (%) (Auto) 0.0, Basophils (%) (Auto ) 0.2, Neutrophils # (Auto) 7.8 H, Lymphocytes # (Auto) 0.6 L, Monocytes # (Auto ) 0.3, Eosinophils # (Auto) 0.0, Basophils # (Auto) 0.0, Calcium Level 7.7 L, Aspartate Amino Transf (AST/SGOT) 10 L, Alanine Aminotransferase (ALT/SGPT) 20, Alkaline Phosphatase 92, Total Bilirubin 0.4, Total Protein 6.7, Albumin 2.7 L Vital Signs Date Time Temp Pulse Resp B/P (MAP) Pulse Ox O2 Delivery O2 Flow Rate FiO2 07/21/17 16:00 96.7 57 18 127/73 (91) 95 07/21/17 14:30 Room Air 07/21/17 04:39 2.0 07/20/17 18:43 97 I&O- Last 24 Hours up to 6 AM 07/22/17 06:00 Intake Total 3550 ml Output Total 2000 ml Balance 1550 ml CARMINA HAMILTON MD Jul 21, 2017 18:18
[2017-07-21 20:00] VITALS: BP 130/80
[2017-07-21] MEDS: ATORVASTATIN 20 MG TAB PO SCH (21:01)
[2017-07-22] VITALS: BP 137/75
[2017-07-22] MEDS: MORPHINE 2 MG/ML 1ML SYRINGE IV PRN (01:11)
[2017-07-22 04:00] VITALS: BP 132/78
[2017-07-22] MEDS: VANCOMYCIN HCL 1,000 MG, VIAL MATE ADAPTER 1 EACH in D5W 250 ML IV SCH ×3 (04:41→22:55)
[2017-07-22] MEDS: PIPERACILLIN/TAZOBACTAM SOD 3.375 GM in D5W 50 ML IV SCH ×3 (06:04→21:13)
[2017-07-22] MEDS ORDERED: PERCOCET 5MG/325MG TAB PO ONE ×2 (06:30→07:15)
[2017-07-22 08:00] VITALS: BP 135/78
[2017-07-22 08:12] LABS: BASO % 0.4 % (0.0-1.0); EOS # 0.1 10^3/uL (0.0-0.50); LYMPH % 10.7 % (24.0-44.0); MEAN CORPUSCULAR HEMOGLOBIN 26.8 pg (27.0-33.0); MEAN CORPUSCULAR HGB CONC 31.4 g/dl (32.0-36.5); MEAN CORPUSCULAR VOLUME 85.4 fl (80.0-96.0); MONO # 0.7 10^3/uL (0.0-0.8); MONO % 6.9 % (0.0-5.0); NEUTROPHILS # 7.7 10^3/uL (1.8-7.7); PLATELET COUNT, AUTOMATED 315 10^3/uL (150-450); RED CELL DISTRIBUTION WIDTH 14.6 % (11.5-14.5); WHITE BLOOD COUNT 9.7 10^3/uL (4.0-10.0)
[2017-07-22 08:39] LABS: ALBUMIN 2.9 GM/DL (3.2-5.2); ALBUMIN/GLOBULIN RATIO 0.76 (1.00-1.93); ALKALINE PHOSPHATASE 85 U/L (45-117); ALT/SGPT 28 U/L (12-78); ANION GAP 6 MEQ/L (8-16); AST/SGOT 21 U/L (15-37); BILIRUBIN,TOTAL 0.2 MG/DL (0.2-1.0); BLOOD UREA NITROGEN 15 MG/DL (7-18); CALCIUM LEVEL 7.8 MG/DL (8.5-10.1); CARBON DIOXIDE LEVEL 31 MEQ/L (21-32); CHLORIDE LEVEL 102 MEQ/L (98-107); CREATININE FOR GFR 0.85 MG/DL (0.70-1.30); GLOMERULAR FILTRATION RATE > 60.0 (>56); GLUCOSE, FASTING 129 MG/DL (70-105); MAGNESIUM LEVEL 2.4 MG/DL (1.8-2.4); POTASSIUM SERUM 3.3 MEQ/L (3.5-5.1); SODIUM LEVEL 139 MEQ/L (136-145); TOTAL PROTEIN 6.7 GM/DL (6.4-8.2)
[2017-07-22] MEDS: HumaLOG INSULIN (NovoLOG) PER UNIT SC SCH ×4 (08:50→21:00)
[2017-07-22] MEDS: LEVEMIR (INSULIN DETEMIR) 1 UNITS/0.01ML SC SCH ×2 (08:51→22:06)
[2017-07-22] MEDS: GABAPENTIN 300 MG CAP PO SCH ×3 (08:52→21:12)
[2017-07-22] MEDS: SERTRALINE HCL 50 MG TAB PO SCH (08:53)
[2017-07-22] MEDS: OMEPRAZOLE 20 MG CAP PO SCH (08:53)
[2017-07-22] MEDS: LOSARTAN 50 MG TAB PO SCH (08:54)
[2017-07-22] MEDS: amLODIPine 5 MG TAB PO SCH (08:54)
[2017-07-22] MEDS ORDERED: INFLUENZA QUADRIVALENT PF VACCINE 0.5ML SYRINGE (90686) IM ONE (09:00)
--- NOTE | 2017-07-22 09:36 | IPNPDOC ---
Assessment/Plan Date Seen The patient was seen on 07/22/17. Patient Summary This is a 57 y/o M POD2 s/p I&D of scrotal abscess and debridement of necrotic scrotal skin. His pain is improving. The wound looks clean. Labs are normal. He is afebrile. Wound culture results are still pending. Plan/VTE VTE Prophylaxis Ordered?: Yes Plan/Urinary Catheter Reason for insertion/continuin: Perioperative Plan - continue broad spectrum antibiotics until cultures return - f/u wound culture results - continue BID wet-to-dry dressing changes - ambulate - percocet prn pain w/ morphine for breakthrough - SCDs - continue to hold plavix for now - if patient continues to do well and cultures come back positive for something that we can treat w/ an oral antibiotic, likely ok for discharge tomorrow Subjective Review oF Systems Chief Complaint The patient is a 57-year-old male admitted with a reason for visit of Abscess Of Scrotal Wall Cellulitis Of Scrotum. Events since Last Encounter No acute events o/n. Patient noted better pain control w/ dressing change last night. Catheter removed and voiding w/o difficulty. No difficulty ambulating. No n/v. No f/c/ns. Objective Physical Examination General Exam: Alert, Cooperative, No Acute Distress ENT EXAM: Atraumatic Neuro Exam: Normal Speech Psych Exam: Mental status NL, Mood NL Other physical findings right scrotal wound clean w/o drainage and no erythema - less tender today Vital Signs/I&O Vital Signs Date Time Temp Pulse Resp B/P (MAP) Pulse Ox O2 Delivery O2 Flow Rate FiO2 07/22/17 08:54 135/78 07/22/17 08:54 73 07/22/17 08:00 96.2 18 96 Room Air 07/21/17 04:39 2.0 07/20/17 18:43 97 I&O- Last 24 Hours up to 6 AM 07/23/17 06:00 Intake Total 750 ml Output Total 600 ml Balance 150 ml Laboratory Data Labs 24H Laboratory Tests 2 07/21/17 11:32: Bedside Glucose (Misc Panel) 264H 07/21/17 16:43: Bedside Glucose (Misc Panel) 152H 07/21/17 20:43: Bedside Glucose (Misc Panel) 93 07/22/17 07:46: Immature Granulocyte % (Auto) 2.0H, White Blood Count 9.7, Red Blood Count 3.84L , Hemoglobin 10.3L, Hematocrit 32.8L, Mean Corpuscular Volume 85.4, Mean Corpuscular Hemoglobin 26.8L, Mean Corpuscular Hemoglobin Concent 31.4L, Red Cell Distribution Width 14.6H, Platelet Count 315, Neutrophils (%) (Auto) 79.0H , Lymphocytes (%) (Auto) 10.7L, Monocytes (%) (Auto) 6.9H, Eosinophils (%) (Auto ) 1.0, Basophils (%) (Auto) 0.4, Neutrophils # (Auto) 7.7, Lymphocytes # (Auto) 1.0L, Monocytes # (Auto) 0.7, Eosinophils # (Auto) 0.1, Basophils # (Auto) 0.0, Immature Granulocyte # (Auto) 0.2H, Nucleated Red Blood Cells % (auto) 0.0, Anion Gap 6L, Glomerular Filtration Rate > 60.0, Blood Urea Nitrogen 15, Creatinine 0.85, Sodium Level 139, Potassium Level 3.3L, Chloride Level 102, Carbon Dioxide Level 31, Calcium Level 7.8L, Aspartate Amino Transf (AST/SGOT) 21, Alanine Aminotransferase (ALT/SGPT) 28, Alkaline Phosphatase 85, Total Bilirubin 0.2, Total Protein 6.7, Albumin 2.9L, Magnesium Level 2.4, Albumin/ Globulin Ratio 0.76L CBC/BMP Laboratory Tests 07/22/17 07:46 Red Blood Count 3.84 L, Mean Corpuscular Volume 85.4, Mean Corpuscular Hemoglobin 26.8 L, Mean Corpuscular Hemoglobin Concent 31.4 L, Red Cell Distribution Width 14.6 H, Neutrophils (%) (Auto) 79.0 H, Lymphocytes (%) (Auto ) 10.7 L, Monocytes (%) (Auto) 6.9 H, Eosinophils (%) (Auto) 1.0, Basophils (%) (Auto) 0.4, Neutrophils # (Auto) 7.7, Lymphocytes # (Auto) 1.0 L, Monocytes # ( Auto) 0.7, Eosinophils # (Auto) 0.1, Basophils # (Auto) 0.0, Calcium Level 7.8 L , Aspartate Amino Transf (AST/SGOT) 21, Alanine Aminotransferase (ALT/SGPT) 28, Alkaline Phosphatase 85, Total Bilirubin 0.2, Total Protein 6.7, Albumin 2.9 L FSBS Laboratory Tests Test 07/21/17 11:32 07/21/17 16:43 07/21/17 20:43 Range/Units Bedside Glucose (Misc Panel) 264 152 93 70-105 MG/DL Microbiology Microbiology 07/20/17 Blood Culture - Preliminary, Resulted No growth after 24 hours . All specim... 07/20/17 Blood Culture - Preliminary, Resulted No growth after 24 hours . All specim... 07/20/17 Wound Culture, Received Pending 07/20/17 Anaerobic Culture, Received Pending 07/21/17 Urine Culture, Received Pending MICKIE CEJA MD Jul 22, 2017 09:36
[2017-07-22] MEDS: PERCOCET 5MG/325MG TAB PO PRN ×3 (11:30→19:58)
--- NOTE | 2017-07-22 15:11 | IPNPDOC ---
Text Note Date of Service The patient was seen on 07/22/17. NOTE Subjective: Less scrotal pain and discomfort. Wound clean , no difficulty in ambulating, no difficulty in bladder or bowel movement. Physical exam: - General: Lying in bed, No acute distress, Speaking in full sentences, AAOx3 - HEENT: NC, AT, PERRLA, EOMI - CVS: RRR, +S1S2 - Lungs: Fair air entry bilaterally, No appreciable wheezing / rales / rhonchi - Abdomen: Soft, Non-distended, Non-tender, + Bowel sounds x 4 - : Right scrotum wall erythematous with surgical incision with dressing on it. - Extremities: No lower extremity edema, No calf tenderness - Neuro: No focal motor or sensory deficit - Skin: No visible rashes Assessment: This is a 57 y/o M admitted with scrotal abscess and cellulitis. Plan Cellulitis of scrotal wall with abscess - - f/u Blood cultures, Urine cultures, UA, abscess culture from OR. - S/p incision and drainage and debridement of necrotic scrotal skin on 07/20 by Urology (Dr. Che) - On Vancomycin, Zosyn and IV fluid hydration Hypokalemia - s/p Supplementation Normocytic anemia - will continue to follow CAD (no stents) - c/w Plavix PVD - s/p bilateral bypass grafting in 2013 and 2014 - c/w Plavix HTN - c/w Losartan and Amlodipine - Hold HCTZ DLP - c/w Atorvastatin IDDM2 - c/w Levemir at reduced dose - added Insulin sliding scale Chronic back pain -continue gabapentin , on prn morphine. - Hold home [place] Depression - c/w Sertraline GERD - c/w Omeprazole DVT prophylaxis -On SCDs and ambulation VS,Fishbone, I+O VS, Fishbone, I+O Laboratory Tests 07/22/17 07:46 Red Blood Count 3.84 L, Mean Corpuscular Volume 85.4, Mean Corpuscular Hemoglobin 26.8 L, Mean Corpuscular Hemoglobin Concent 31.4 L, Red Cell Distribution Width 14.6 H, Neutrophils (%) (Auto) 79.0 H, Lymphocytes (%) (Auto ) 10.7 L, Monocytes (%) (Auto) 6.9 H, Eosinophils (%) (Auto) 1.0, Basophils (%) (Auto) 0.4, Neutrophils # (Auto) 7.7, Lymphocytes # (Auto) 1.0 L, Monocytes # ( Auto) 0.7, Eosinophils # (Auto) 0.1, Basophils # (Auto) 0.0, Calcium Level 7.8 L , Aspartate Amino Transf (AST/SGOT) 21, Alanine Aminotransferase (ALT/SGPT) 28, Alkaline Phosphatase 85, Total Bilirubin 0.2, Total Protein 6.7, Albumin 2.9 L Vital Signs Date Time Temp Pulse Resp B/P (MAP) Pulse Ox O2 Delivery O2 Flow Rate FiO2 07/22/17 12:14 18 07/22/17 08:54 135/78 07/22/17 08:54 73 07/22/17 08:00 96.2 96 Room Air 07/21/17 04:39 2.0 07/20/17 18:43 97 I&O- Last 24 Hours up to 6 AM 07/23/17 06:00 Intake Total 1230 ml Output Total 1300 ml Balance -70 ml CARMINA HAMILTON MD Jul 22, 2017 15:11
[2017-07-22 16:00] VITALS: BP 132/78
[2017-07-22] MEDS ORDERED: POTASSIUM CHLORIDE 10 MEQ SR TABLET PO ONE (16:00)
[2017-07-22 20:00] VITALS: BP 150/72
[2017-07-22] MEDS: ATORVASTATIN 20 MG TAB PO SCH (21:12)
[2017-07-23] VITALS: BP 132/73
[2017-07-23] MEDS: PERCOCET 5MG/325MG TAB PO PRN ×6 (00:11→21:37)
[2017-07-23 04:00] VITALS: BP 143/73
[2017-07-23] MEDS: PIPERACILLIN/TAZOBACTAM SOD 3.375 GM in D5W 50 ML IV SCH (05:45)
[2017-07-23 07:20] LABS: BASO % 0.3 % (0.0-1.0); EOS # 0.1 10^3/uL (0.0-0.50); EOS % 1.8 % (0.0-3.0); IMMATURE GRANULOCYTE % 3.6 % (0-0); LYMPH # 0.8 10^3/uL (1.5-4.5); LYMPH % 9.7 % (24.0-44.0); MEAN CORPUSCULAR HGB CONC 31.2 g/dl (32.0-36.5); MEAN CORPUSCULAR VOLUME 86.4 fl (80.0-96.0); MONO # 0.6 10^3/uL (0.0-0.8); MONO % 7.2 % (0.0-5.0); NEUTROPHILS % 77.4 % (36.0-66.0); PLATELET COUNT, AUTOMATED 234 10^3/uL (150-450); RED CELL DISTRIBUTION WIDTH 14.9 % (11.5-14.5); WHITE BLOOD COUNT 7.8 10^3/uL (4.0-10.0)
[2017-07-23 07:37] LABS: ALBUMIN 2.8 GM/DL (3.2-5.2); ALBUMIN/GLOBULIN RATIO 0.76 (1.00-1.93); ALKALINE PHOSPHATASE 90 U/L (45-117); ALT/SGPT 31 U/L (12-78); ANION GAP 7 MEQ/L (8-16); AST/SGOT 14 U/L (15-37); BILIRUBIN,TOTAL 0.2 MG/DL (0.2-1.0); BLOOD UREA NITROGEN 11 MG/DL (7-18); CALCIUM LEVEL 7.6 MG/DL (8.5-10.1); CARBON DIOXIDE LEVEL 28 MEQ/L (21-32); CHLORIDE LEVEL 105 MEQ/L (98-107); CREATININE FOR GFR 0.97 MG/DL (0.70-1.30); GLOMERULAR FILTRATION RATE > 60.0 (>56); GLUCOSE, FASTING 188 MG/DL (70-105); MAGNESIUM LEVEL 2.3 MG/DL (1.8-2.4); SODIUM LEVEL 140 MEQ/L (136-145); TOTAL PROTEIN 6.5 GM/DL (6.4-8.2)
[2017-07-23 08:00] VITALS: BP 150/86
[2017-07-23] MEDS: HumaLOG INSULIN (NovoLOG) PER UNIT SC SCH ×4 (08:16→21:00)
--- NOTE | 2017-07-23 08:37 | IPNPDOC ---
Assessment/Plan Date Seen The patient was seen on 07/23/17. Patient Summary This is a 57 y/o M POD3 s/p I&D of scrotal abscess and debridement of necrotic scrotal skin. His pain is improving. The wound looks clean. Labs are normal. He is afebrile. Wound culture has come back positive for S epidermidis. Plan/VTE VTE Prophylaxis Ordered?: Yes VTE Exclusion Mechanical Proph: N/A:VTE Prophy Ordered Plan - would recommend switching to PO bactrim or clindamycin based on culture results - continue percocet prn pain w/ morphine for breakthrough - BID wet-to-dry dressing changes (tomorrow can go to once daily dressing changes) - ok to shower - if patient is doing well tomorrow on PO antibiotics, he should be ok for discharge (w/ home health if needed) Subjective Review oF Systems Chief Complaint The patient is a 57-year-old male admitted with a reason for visit of Abscess Of Scrotal Wall Cellulitis Of Scrotum. Events since Last Encounter No acute events o/n. Good pain control. No f/c/ns. Objective Physical Examination General Exam: Alert, Cooperative, No Acute Distress ENT EXAM: Atraumatic Neuro Exam: Normal Speech Psych Exam: Mental status NL, Mood NL Other physical findings right scrotal wound clean and dry w/o active drainage or bleeding; still w/ moderate tenderness when changing dressing; no surrounding erythema Vital Signs/I&O Vital Signs Date Time Temp Pulse Resp B/P (MAP) Pulse Ox O2 Delivery O2 Flow Rate FiO2 07/23/17 08:00 97.2 66 18 150/86 (107) 95 Room Air 07/21/17 04:39 2.0 07/20/17 18:43 97 I&O- Last 24 Hours up to 6 AM 07/24/17 06:00 Intake Total 340 ml Output Total 300 ml Balance 40 ml Laboratory Data Labs 24H Laboratory Tests 2 07/22/17 12:04: Bedside Glucose (Misc Panel) 164H 07/22/17 14:47: Vancomycin Level Trough 9.1L 07/22/17 17:25: Bedside Glucose (Misc Panel) 140H 07/22/17 20:46: Bedside Glucose (Misc Panel) 192H 07/23/17 07:07: Immature Granulocyte % (Auto) 3.6H, White Blood Count 7.8, Red Blood Count 3.67L , Hemoglobin 9.9L, Hematocrit 31.7L, Mean Corpuscular Volume 86.4, Mean Corpuscular Hemoglobin 27.0, Mean Corpuscular Hemoglobin Concent 31.2L, Red Cell Distribution Width 14.9H, Platelet Count 234, Neutrophils (%) (Auto) 77.4H , Lymphocytes (%) (Auto) 9.7L, Monocytes (%) (Auto) 7.2H, Eosinophils (%) (Auto ) 1.8, Basophils (%) (Auto) 0.3, Neutrophils # (Auto) 6.0, Lymphocytes # (Auto) 0.8L, Monocytes # (Auto) 0.6, Eosinophils # (Auto) 0.1, Basophils # (Auto) 0.0, Immature Granulocyte # (Auto) 0.3H, Nucleated Red Blood Cells % (auto) 0.0, Anion Gap 7L, Glomerular Filtration Rate > 60.0, Blood Urea Nitrogen 11, Creatinine 0.97, Sodium Level 140, Potassium Level 4.0#, Chloride Level 105, Carbon Dioxide Level 28, Calcium Level 7.6L, Aspartate Amino Transf (AST/SGOT) 14L, Alanine Aminotransferase (ALT/SGPT) 31, Alkaline Phosphatase 90, Total Bilirubin 0.2, Total Protein 6.5, Albumin 2.8L, Magnesium Level 2.3, Albumin/ Globulin Ratio 0.76L CBC/BMP Laboratory Tests 07/23/17 07:07 Red Blood Count 3.67 L, Mean Corpuscular Volume 86.4, Mean Corpuscular Hemoglobin 27.0, Mean Corpuscular Hemoglobin Concent 31.2 L, Red Cell Distribution Width 14.9 H, Neutrophils (%) (Auto) 77.4 H, Lymphocytes (%) (Auto ) 9.7 L, Monocytes (%) (Auto) 7.2 H, Eosinophils (%) (Auto) 1.8, Basophils (%) ( Auto) 0.3, Neutrophils # (Auto) 6.0, Lymphocytes # (Auto) 0.8 L, Monocytes # ( Auto) 0.6, Eosinophils # (Auto) 0.1, Basophils # (Auto) 0.0, Calcium Level 7.6 L , Aspartate Amino Transf (AST/SGOT) 14 L, Alanine Aminotransferase (ALT/SGPT) 31 , Alkaline Phosphatase 90, Total Bilirubin 0.2, Total Protein 6.5, Albumin 2.8 L FSBS Laboratory Tests Test 07/22/17 12:04 07/22/17 17:25 07/22/17 20:46 Range/Units Bedside Glucose (Misc Panel) 164 140 192 70-105 MG/DL Microbiology Microbiology 07/20/17 Blood Culture - Preliminary, Resulted No Growth after 48 hours. All Specime... 07/20/17 Blood Culture - Preliminary, Resulted No Growth after 48 hours. All Specime... 07/20/17 Wound Culture - Final, Resulted Staphylococcus Epidermidis 07/20/17 Anaerobic Culture, Resulted Pending 07/21/17 Urine Culture, Received Pending MICKIE CEJA MD Jul 23, 2017 08:37
[2017-07-23] MEDS: LEVEMIR (INSULIN DETEMIR) 1 UNITS/0.01ML SC SCH ×2 (09:03→21:38)
[2017-07-23] MEDS: GABAPENTIN 300 MG CAP PO SCH ×3 (09:03→21:36)
[2017-07-23] MEDS: SERTRALINE HCL 50 MG TAB PO SCH (09:07)
[2017-07-23] MEDS: LOSARTAN 50 MG TAB PO SCH (09:07)
[2017-07-23] MEDS: OMEPRAZOLE 20 MG CAP PO SCH (09:07)
[2017-07-23] MEDS: amLODIPine 5 MG TAB PO SCH (09:08)
[2017-07-23] MEDS: VANCOMYCIN HCL 1,000 MG, VIAL MATE ADAPTER 1 EACH in D5W 250 ML IV SCH (11:43)
[2017-07-23 12:00] VITALS: BP 127/77
[2017-07-23] MEDS: CLINDAMYCIN 150 MG CAP PO SCH ×2 (12:49→18:13)
--- NOTE | 2017-07-23 14:22 | IPNPDOC ---
Text Note Date of Service The patient was seen on 07/23/17. NOTE Subjective: Less scrotal pain and discomfort. Wound clean , no difficulty in ambulating, no difficulty in bladder or bowel movement. Physical exam: - General: Lying in bed, No acute distress, Speaking in full sentences, AAOx3 - HEENT: NC, AT, PERRLA, EOMI - CVS: RRR, +S1S2 - Lungs: Fair air entry bilaterally, No appreciable wheezing / rales / rhonchi - Abdomen: Soft, Non-distended, Non-tender, + Bowel sounds x 4 - : Right scrotum wall erythematous with surgical incision with dressing on it. - Extremities: No lower extremity edema, No calf tenderness - Neuro: No focal motor or sensory deficit - Skin: No visible rashes Assessment: This is a 57 y/o M admitted with scrotal abscess and cellulitis. Plan Cellulitis of scrotal wall with abscess - - f/u Blood cultures, aerobic culture from [facility] staph epi - S/p incision and drainage and debridement of necrotic scrotal skin on 07/20 by Urology (Dr. Che) - will change antibiotic to oral clindamycin. Hypokalemia - s/p Supplementation Normocytic anemia - will continue to follow CAD (no stents) - c/w Plavix PVD - s/p bilateral bypass grafting in 2013 and 2014 - c/w Plavix HTN - c/w Losartan and Amlodipine - Hold HCTZ DLP - c/w Atorvastatin IDDM2 - c/w Levemir at reduced dose - added Insulin sliding scale Chronic back pain -continue gabapentin , on prn morphine. - Hold home [place] Depression - c/w Sertraline GERD - c/w Omeprazole DVT prophylaxis -On SCDs and ambulation VS,Fishbone, I+O VS, Fishbone, I+O Laboratory Tests 07/23/17 07:07 Red Blood Count 3.67 L, Mean Corpuscular Volume 86.4, Mean Corpuscular Hemoglobin 27.0, Mean Corpuscular Hemoglobin Concent 31.2 L, Red Cell Distribution Width 14.9 H, Neutrophils (%) (Auto) 77.4 H, Lymphocytes (%) (Auto ) 9.7 L, Monocytes (%) (Auto) 7.2 H, Eosinophils (%) (Auto) 1.8, Basophils (%) ( Auto) 0.3, Neutrophils # (Auto) 6.0, Lymphocytes # (Auto) 0.8 L, Monocytes # ( Auto) 0.6, Eosinophils # (Auto) 0.1, Basophils # (Auto) 0.0, Calcium Level 7.6 L , Aspartate Amino Transf (AST/SGOT) 14 L, Alanine Aminotransferase (ALT/SGPT) 31 , Alkaline Phosphatase 90, Total Bilirubin 0.2, Total Protein 6.5, Albumin 2.8 L Vital Signs Date Time Temp Pulse Resp B/P (MAP) Pulse Ox O2 Delivery O2 Flow Rate FiO2 07/23/17 12:55 18 07/23/17 12:00 97.3 61 127/77 (94) 96 Room Air 07/21/17 04:39 2.0 07/20/17 18:43 97 I&O- Last 24 Hours up to 6 AM 07/24/17 06:00 Intake Total 820 ml Output Total 300 ml Balance 520 ml CARMINA HAMILTON MD Jul 23, 2017 14:22
[2017-07-23 16:00] VITALS: BP 136/63
[2017-07-23 20:00] VITALS: BP 140/78
[2017-07-23] MEDS: ATORVASTATIN 20 MG TAB PO SCH (21:36)
[2017-07-24] VITALS: BP 118/60
[2017-07-24] MEDS: CLINDAMYCIN 150 MG CAP PO SCH ×3 (00:03→11:13)
[2017-07-24] MEDS: PERCOCET 5MG/325MG TAB PO PRN ×2 (04:46→08:29)
[2017-07-24] MEDS: HumaLOG INSULIN (NovoLOG) PER UNIT SC SCH (07:14)
[2017-07-24 07:35] LABS: BASO % 0.3 % (0.0-1.0); EOS # 0.1 10^3/uL (0.0-0.50); LYMPH # 0.7 10^3/uL (1.5-4.5); MEAN CORPUSCULAR HEMOGLOBIN 27.1 pg (27.0-33.0); MEAN CORPUSCULAR HGB CONC 31.3 g/dl (32.0-36.5); MEAN CORPUSCULAR VOLUME 86.6 fl (80.0-96.0); MONO # 0.7 10^3/uL (0.0-0.8); MONO % 7.6 % (0.0-5.0); NEUTROPHILS # 7.1 10^3/uL (1.8-7.7); NEUTROPHILS % 79.1 % (36.0-66.0); PLATELET COUNT, AUTOMATED 247 10^3/uL (150-450); RED CELL DISTRIBUTION WIDTH 15.1 % (11.5-14.5)
[2017-07-24 07:58] LABS: ALBUMIN 2.9 GM/DL (3.2-5.2); ALBUMIN/GLOBULIN RATIO 0.81 (1.00-1.93); ALKALINE PHOSPHATASE 80 U/L (45-117); ALT/SGPT 32 U/L (12-78); ANION GAP 5 MEQ/L (8-16); AST/SGOT 20 U/L (15-37); BILIRUBIN,TOTAL 0.2 MG/DL (0.2-1.0); BLOOD UREA NITROGEN 10 MG/DL (7-18); CALCIUM LEVEL 7.9 MG/DL (8.5-10.1); CARBON DIOXIDE LEVEL 29 MEQ/L (21-32); CHLORIDE LEVEL 104 MEQ/L (98-107); CREATININE FOR GFR 0.72 MG/DL (0.70-1.30); GLOMERULAR FILTRATION RATE > 60.0 (>56); GLUCOSE, FASTING 141 MG/DL (70-105); MAGNESIUM LEVEL 2.2 MG/DL (1.8-2.4); POTASSIUM SERUM 4.1 MEQ/L (3.5-5.1); SODIUM LEVEL 138 MEQ/L (136-145); TOTAL PROTEIN 6.5 GM/DL (6.4-8.2)
[2017-07-24 08:00] VITALS: BP 148/80
--- NOTE | 2017-07-24 08:10 | IPNPDOC ---
Assessment/Plan Date Seen The patient was seen on 07/24/17. Patient Summary This is a 57 y/o M POD4 s/p I&D of scrotal abscess and debridement of necrotic scrotal skin. His pain is improving. The wound looks clean. Labs are normal. He is afebrile. He was started on clindamycin yesterday for S epidermidis growing from wound culture. Plan/VTE VTE Prophylaxis Ordered?: Yes VTE Exclusion Mechanical Proph: N/A:VTE Prophy Ordered Plan - continue clindamycin - percocet prn pain - once daily wet-to-dry dressing changes at this point - continue to hold plavix - ok to give ASA 81mg - ok for discharge from urology standpoint (scripts for clindamycin and percocet sent to pharmacy) - will arrange f/u for him to see me next Wed Subjective Review oF Systems Chief Complaint The patient is a 57-year-old male admitted with a reason for visit of Abscess Of Scrotal Wall Cellulitis Of Scrotum. Events since Last Encounter No acute events o/n. Good pain control. No f/c/ns. Objective Physical Examination General Exam: Alert, Cooperative, No Acute Distress ENT EXAM: Atraumatic Neuro Exam: Normal Speech Psych Exam: Mental status NL, Mood NL Other physical findings wound clean and dry w/o erythema - less tender today Vital Signs/I&O Vital Signs Date Time Temp Pulse Resp B/P (MAP) Pulse Ox O2 Delivery O2 Flow Rate FiO2 07/24/17 05:16 18 07/24/17 00:00 98.9 75 118/60 (79) 94 Room Air 07/21/17 04:39 2.0 07/20/17 18:43 97 Laboratory Data Labs 24H Laboratory Tests 2 07/23/17 12:09: Bedside Glucose (Misc Panel) 140H 07/23/17 16:36: Bedside Glucose (Misc Panel) 99 07/23/17 21:14: Bedside Glucose (Misc Panel) 152H 07/24/17 07:02: Immature Granulocyte % (Auto) 4.0H, White Blood Count 9.0, Red Blood Count 3.58L , Hemoglobin 9.7L, Hematocrit 31.0L, Mean Corpuscular Volume 86.6, Mean Corpuscular Hemoglobin 27.1, Mean Corpuscular Hemoglobin Concent 31.3L, Red Cell Distribution Width 15.1H, Platelet Count 247, Neutrophils (%) (Auto) 79.1H , Lymphocytes (%) (Auto) 8.0L, Monocytes (%) (Auto) 7.6H, Eosinophils (%) (Auto ) 1.0, Basophils (%) (Auto) 0.3, Neutrophils # (Auto) 7.1, Lymphocytes # (Auto) 0.7L, Monocytes # (Auto) 0.7, Eosinophils # (Auto) 0.1, Basophils # (Auto) 0.0, Immature Granulocyte # (Auto) 0.4H, Nucleated Red Blood Cells % (auto) 0.0, Anion Gap 5L, Glomerular Filtration Rate > 60.0, Blood Urea Nitrogen 10, Creatinine 0.72, Sodium Level 138, Potassium Level 4.1, Chloride Level 104, Carbon Dioxide Level 29, Calcium Level 7.9L, Aspartate Amino Transf (AST/SGOT) 20, Alanine Aminotransferase (ALT/SGPT) 32, Alkaline Phosphatase 80, Total Bilirubin 0.2, Total Protein 6.5, Albumin 2.9L, Magnesium Level 2.2, Albumin/ Globulin Ratio 0.81L 07/24/17 07:06: Bedside Glucose (Misc Panel) 140H CBC/BMP Laboratory Tests 07/24/17 07:02 Red Blood Count 3.58 L, Mean Corpuscular Volume 86.6, Mean Corpuscular Hemoglobin 27.1, Mean Corpuscular Hemoglobin Concent 31.3 L, Red Cell Distribution Width 15.1 H, Neutrophils (%) (Auto) 79.1 H, Lymphocytes (%) (Auto ) 8.0 L, Monocytes (%) (Auto) 7.6 H, Eosinophils (%) (Auto) 1.0, Basophils (%) ( Auto) 0.3, Neutrophils # (Auto) 7.1, Lymphocytes # (Auto) 0.7 L, Monocytes # ( Auto) 0.7, Eosinophils # (Auto) 0.1, Basophils # (Auto) 0.0, Calcium Level 7.9 L , Aspartate Amino Transf (AST/SGOT) 20, Alanine Aminotransferase (ALT/SGPT) 32, Alkaline Phosphatase 80, Total Bilirubin 0.2, Total Protein 6.5, Albumin 2.9 L FSBS Laboratory Tests Test 07/23/17 12:09 07/23/17 16:36 07/23/17 21:14 07/24/17 07:06 Range/Units Bedside Glucose (Misc Panel) 140 99 152 140 70-105 MG/DL Microbiology Microbiology 07/20/17 Blood Culture - Preliminary, Resulted No Growth after 72 hours. All specime... 07/20/17 Blood Culture - Preliminary, Resulted No Growth after 72 hours. All specime... 07/20/17 Wound Culture - Final, Resulted Staphylococcus Epidermidis 07/20/17 Anaerobic Culture, Resulted Pending 07/21/17 Urine Culture - Final, Complete MICKIE CEJA MD Jul 24, 2017 08:10
[2017-07-24] MEDS: OMEPRAZOLE 20 MG CAP PO SCH (08:27)
[2017-07-24] MEDS: GABAPENTIN 300 MG CAP PO SCH (08:27)
[2017-07-24] MEDS: SERTRALINE HCL 50 MG TAB PO SCH (08:27)
[2017-07-24 08:28] VITALS: BP 148/80
[2017-07-24] MEDS: LOSARTAN 50 MG TAB PO SCH (08:28)
[2017-07-24] MEDS: LEVEMIR (INSULIN DETEMIR) 1 UNITS/0.01ML SC SCH (08:28)
[2017-07-24] MEDS: amLODIPine 5 MG TAB PO SCH (08:28)
[2017-07-24] MEDS ORDERED: TYLE325T5 PO (11:51)
[2017-07-24] MEDS ORDERED: CLEO300C2 PO (11:51)
[2017-07-24] MEDS ORDERED: OXYC1TAB23 PO (11:51)
--- NOTE | 2017-07-25 16:22 | DSES ---
DATE OF ADMISSION: 07/20/2017 DATE OF DISCHARGE: 07/24/2017 UROLOGIST: Dr. Che. PRIMARY CARE PROVIDER: Dr. Chavarria. DISCHARGE DIAGNOSES: 1. Cellulitis and abscess of the scrotal wall, status post incision and drainage on 07/[address] Che. 2. Coronary artery disease. 3. Peripheral vascular disease, status post bilateral bypass grafting. 4. Hypertension. 5. Dyslipidemia. 6. Diabetes. 7. Chronic back pain. 8. Depression. 9. Gastroesophageal reflux disease (GERD). 10. Normocytic anemia. DISCHARGE MEDICATIONS: - Tylenol 650 mg every six hours as needed for pain - clindamycin 300 mg every six hours - oxycodone/acetaminophen 1-2 tablets every four hours as needed for pain - amlodipine 5 mg daily - atorvastatin 40 mg daily - Invokana 300 mg daily - gabapentin 600 mg by mouth three times a day - hydrochlorothiazide 12.5 mg by mouth daily - Levemir insulin 55 units twice a day - losartan 100 mg by mouth daily - metformin 750 mg at bedtime - omeprazole 20 mg daily - sertraline 150 mg daily HOSPITAL COURSE: This is a 57-year-old male who presented to the hospital with 3-4 days' history of increasingly worsening scrotal pain and swelling. He was initially seen in the emergency room and given oral antibiotics, and instructed to followup with urology. He then noted discharge from the scrotum and also starting having fevers and chills at home with worsening of pain and swelling and inability to walk, so came back to the emergency room. In the emergency department (ED), he was diagnosed with scrotal cellulitis and abscess. The patient was seen by urology and underwent incision and drainage of the scrotal abscess. The patient was initially treated with intravenous (IV) antibiotics Zosyn and vancomycin. Subsequently his culture from the abscess came back as Staphylococcus epidermidis, so antibiotics were changed to clindamycin. The patient responded well to treatment. The patient's pain and swelling went down, and the patient was cleared by urology to be discharged though patient's anaerobic culture from the abscess is still pending, which is going to be followed up by Dr. Che in the office. Overall on the day of discharge, the patient did not have any complaints. Vital signs were stable. Functionally he was at baseline. PHYSICAL EXAMINATION: VITAL SIGNS: Temperature 97.3, pulse 71, respiratory rate 18, blood pressure 148/80, pulse oximetry 98% on room air. GENERAL: Patient awake, alert, and oriented times three. Sitting up in bed in no acute distress. HEENT: Normocephalic, atraumatic. Moist mucous membranes. Anicteric eyes. CHEST: Clear to auscultation. CARDIOVASCULAR: S1, S2. Regular. No rub, murmur or gallop. ABDOMEN: Obese, soft, nontender. Bowel sounds present. EXTREMITIES: No edema. LABORATORY DATA: WBC 9, hemoglobin 9.7, platelets 247. Sodium 138, potassium 4.1, chloride 104, bicarbonate 29, BUN 10, creatinine 0.7, glucose 141, calcium 7.9. Liver function tests are normal. MICROBIOLOGY: Blood cultures are negative to date. Urine cultures are negative. Abscess culture showed Staphylococcus epidermidis. Anaerobic culture of the abscess is still pending. IMAGING: Abdominal CT scan on admission showed right scrotal wall abscess measuring 5.2 x 2.4 cm. There was no extension superiorly into the abdomen or pelvis. Very mild right inguinal adenopathy. Small inguinal hernias which contain fat. No other acute intraabdominal or pelvic abnormality. DISPOSITION: The patient is discharged home in stable condition. DISCHARGE INSTRUCTIONS: The patient will followup with Dr. Che in urology in one week. Patient to followup with Dr. Chavarria in 1-2 weeks. Carbohydrate consistent diet. Activity as tolerated and as instructed by urology. MAXIMUS
== END 2017-07-24 12:05 | disposition home or self-care (01) | DRG 728 ==
LOC: M ED 11:47 → M ED INP 14:05 → M PED 19:10
PROVIDERS: ADMIT Internal Medicine; ATTEND Internal Medicine Nephrology
PROC: 0HBAXZZ Excision of Inguinal Skin, External Approach (ICD-10-PCS; principal; 2017-07-20 12:03)
DX: N49.2 Inflammatory disorders of scrotum (principal); I25.10 Atherosclerotic heart disease of native coronary artery without angina pectoris; I73.9 Peripheral vascular disease, unspecified; I10 Essential (primary) hypertension; K21.9 Gastro-esophageal reflux disease without esophagitis; E87.6 Hypokalemia; F32.9 Major depressive disorder, single episode, unspecified; N43.3 Hydrocele, unspecified; E78.5 Hyperlipidemia, unspecified; E11.9 Type 2 diabetes mellitus without complications; M54.9 Dorsalgia, unspecified; Z79.4 Long term (current) use of insulin; Z79.899 Other long term (current) drug therapy; Z95.828 Presence of other vascular implants and grafts; Z87.891 Personal history of nicotine dependence

== ENCOUNTER 2017-10-22 15:25 | Day surgery (SDC) | payer MEDICARE, MEDICAID ==
[2017-10-22] MEDS: **UNRESOLVED NON-FORMULARY MED ORDER XX (00:01)
[2017-10-22] MEDS: NS 1,000 ML IV (15:33)
[2017-10-22] MEDS: ASPIRIN 81 MG CHEW TABLET PO (15:45)
[2017-10-22 16:06] LABS: BASO % 0.3 % (0.0-1.0); EOS # 0.1 10^3/uL (0.0-0.50); EOS % 0.8 % (0.0-3.0); HEMATOCRIT 37.9 % (42.0-52.0); HEMOGLOBIN 12.1 g/dl (14.0-18.0); IMMATURE GRANULOCYTE % 0.4 % (0-0); LYMPH # 1.1 10^3/uL (1.5-4.5); LYMPH % 15.8 % (24.0-44.0); MEAN CORPUSCULAR HEMOGLOBIN 26.4 pg (27.0-33.0); MEAN CORPUSCULAR HGB CONC 31.9 g/dl (32.0-36.5); MEAN CORPUSCULAR VOLUME 82.6 fl (80.0-96.0); MONO # 0.5 10^3/uL (0.0-0.8); MONO % 6.2 % (0.0-5.0); NEUTROPHILS # 5.5 10^3/uL (1.8-7.7); NEUTROPHILS % 76.5 % (36.0-66.0); PLATELET COUNT, AUTOMATED 210 10^3/uL (150-450); RED BLOOD COUNT 4.59 10^6/uL (4.30-6.10); RED CELL DISTRIBUTION WIDTH 16.6 % (11.5-14.5); WHITE BLOOD COUNT 7.2 10^3/uL (4.0-10.0)
[2017-10-22 16:20] LABS: INR 1.02; PROTHROMBIN TIME 13.5 SECONDS (12.4-14.5)
[2017-10-22 16:21] LABS: PARTIAL THROMBOPLASTIN TIME 27.6 SECONDS (26.8-37.9)
[2017-10-22 16:36] LABS: ALBUMIN 3.9 GM/DL (3.2-5.2); ALBUMIN/GLOBULIN RATIO 1.44 (1.00-1.93); ALKALINE PHOSPHATASE 127 U/L (45-117); ALT/SGPT 75 U/L (12-78); ANION GAP 7 MEQ/L (8-16); AST/SGOT 36 U/L (7-37); BILIRUBIN,DIRECT 0.2 MG/DL (0.0-0.2); BILIRUBIN,TOTAL 0.5 MG/DL (0.2-1.0); BLOOD UREA NITROGEN 25 MG/DL (7-18); CALCIUM LEVEL 8.6 MG/DL (8.5-10.1); CARBON DIOXIDE LEVEL 25 MEQ/L (21-32); CHLORIDE LEVEL 108 MEQ/L (98-107); CK-MB VALUE MASS 2.7 NG/ML (0.0-3.6); CPK CREATINE PHOSPHOKINASE 127 U/L (39-308); CREATININE FOR GFR 1.13 MG/DL (0.70-1.30); GLOMERULAR FILTRATION RATE > 60.0 (>56); GLUCOSE, FASTING 230 MG/DL (70-105); LIPASE 89 U/L (73-393); MB/CK RELATIVE INDEX 2.12 (< OR =4); POTASSIUM SERUM 4.9 MEQ/L (3.5-5.1); SODIUM LEVEL 140 MEQ/L (136-145); TOTAL PROTEIN 6.6 GM/DL (6.4-8.2); TROPONIN I 0.02 NG/ML (< 0.10)
[2017-10-22] MEDS ORDERED: fentaNYL 100 MCG/2 ML INJECTION (J3010) As Ordered ×3 (20:04→22:56)
[2017-10-22] MEDS ORDERED: MIDAZOLAM INJ 2 MG/2 ML VIAL (J2250) As Ordered (20:04)
[2017-10-22] MEDS: ceFAZolin 2 GM/D5W 50 ML IV BAG (J0690 PER 500MG) As Ordered (20:25)
[2017-10-22] MEDS: ISOVUE-300 61% 50ML VIAL (Q9967) As Ordered (20:55)
[2017-10-22] MEDS: LIDOCAINE 1% MDV 20ML VIAL As Ordered (20:55)
[2017-10-22] MEDS ORDERED: LIDOCAINE 2% INJ 100 MG/5 ML SDV (FOR ANES.) As Ordered (21:55)
[2017-10-22] MEDS ORDERED: PROPOFOL 200 MG/20 ML VIAL As Ordered (21:55)
[2017-10-22] MEDS: VANCOMYCIN 1000 MG/20 ML VIAL (J3370) As Ordered (22:05)
[2017-10-22] MEDS: MUPIROCIN 2% OINT 22 GM TUBE As Ordered (22:28)
[2017-10-22] MEDS ORDERED: ONDANSETRON 4MG/2ML VIAL (J2405) IV (23:15)
[2017-10-22] MEDS ORDERED: fentaNYL 100 MCG/2 ML INJECTION (J3010) IV (23:15)
[2017-10-22] MEDS: LR 1,000 ML IV (23:15)
[2017-10-22] MEDS ORDERED: PERCOCET 5MG/325MG TAB PO (23:45)
[2017-10-23] MEDS: **UNRESOLVED NON-FORMULARY MED ORDER XX (00:01)
[2017-10-23] MEDS: PERCOCET 5MG/325MG TAB PO ×4 (00:46→13:23)
[2017-10-23 01:14] LABS: BEDSIDE GLUCOSE 238 MG/DL (70-105)
[2017-10-23] MEDS: CLINDAMYCIN 150 MG CAP PO ×3 (01:14→11:43)
[2017-10-23] MEDS: GABAPENTIN 300 MG CAP PO ×3 (01:14→15:25)
[2017-10-23] MEDS: ASCORBIC ACID 250 MG TAB PO ×2 (01:15→08:23)
[2017-10-23] MEDS: metFORMIN XR 750 MG TAB PO (01:15)
[2017-10-23] MEDS: ATORVASTATIN 20 MG TAB PO (01:15)
[2017-10-23] MEDS: LEVEMIR (INSULIN DETEMIR) 1 UNITS/0.01ML SC ×2 (01:16→08:26)
[2017-10-23] MEDS ORDERED: SLF 3 ML SYR IV (01:45)
[2017-10-23] MEDS: SLF 3 ML SYR IV ×2 (05:19→13:24)
[2017-10-23] MEDS: LOSARTAN 50 MG TAB PO (08:24)
[2017-10-23] MEDS: ACETAMINOPHEN TAB 650MG DOSE (2X325MG) PO (08:24)
[2017-10-23] MEDS: amLODIPine 5 MG TAB PO (08:25)
[2017-10-23] MEDS: hydroCHLOROthiazide 12.5 MG CAPSULE PO (08:25)
[2017-10-23] MEDS: OMEPRAZOLE 20 MG CAP PO (08:25)
[2017-10-23] MEDS: SERTRALINE 100 MG TAB PO (08:25)
== END 2017-10-23 15:51 | disposition home or self-care (01) ==
LOC: M SDC 10-23 15:51 → M ED 15:25 → M SDC 19:32 → M PCU 23:28
DX: I44.2 Atrioventricular block, complete (principal); I10 Essential (primary) hypertension; E78.5 Hyperlipidemia, unspecified; E11.40 Type 2 diabetes mellitus with diabetic neuropathy, unspecified; K21.9 Gastro-esophageal reflux disease without esophagitis; M54.5 Low back pain; K59.00 Constipation, unspecified; I73.9 Peripheral vascular disease, unspecified; E78.00 Pure hypercholesterolemia, unspecified; Z79.899 Other long term (current) drug therapy; Z79.84 Long term (current) use of oral hypoglycemic drugs; Z87.891 Personal history of nicotine dependence
CPT/HCPCS: 33208

== ENCOUNTER → 2018-04-29 | Outpatient (CLI) | payer MEDICARE, MEDICAID ==
[2018-04-29 16:38] LABS: BASO % 0.2 % (0.0-1.0); EOS % 0.6 % (0.0-3.0); HEMATOCRIT 41.3 % (42.0-52.0); HEMOGLOBIN 13.5 g/dl (13.5-17.5); IMMATURE GRANULOCYTE % 0.5 % (0-3.0); LYMPH # 1.2 10^3/uL (1.5-4.5); LYMPH % 18.3 % (24.0-44.0); MEAN CORPUSCULAR HEMOGLOBIN 27.6 pg (27.0-33.0); MEAN CORPUSCULAR HGB CONC 32.7 g/dl (32.0-36.5); MEAN CORPUSCULAR VOLUME 84.5 fl (80.0-96.0); MONO # 0.5 10^3/uL (0.0-0.8); MONO % 7.5 % (0.0-5.0); NEUTROPHILS # 4.7 10^3/uL (1.8-7.7); NEUTROPHILS % 72.9 % (36.0-66.0); PLATELET COUNT, AUTOMATED 156 10^3/uL (150-450); RED BLOOD COUNT 4.89 10^6/uL (4.30-6.10); RED CELL DISTRIBUTION WIDTH 15.3 % (11.5-14.5); WHITE BLOOD COUNT 6.4 10^3/uL (4.0-10.0)
[2018-04-29 16:40] LABS: INR 0.93; PROTHROMBIN TIME 12.6 SECONDS (12.1-14.4)
[2018-04-29 16:41] LABS: PARTIAL THROMBOPLASTIN TIME 25.9 SECONDS (25.4-37.6)
[2018-04-29 17:02] LABS: ANION GAP 6 MEQ/L (8-16); BLOOD UREA NITROGEN 21 MG/DL (7-18); CALCIUM LEVEL 9.3 MG/DL (8.5-10.1); CARBON DIOXIDE LEVEL 30 MEQ/L (21-32); CHLORIDE LEVEL 108 MEQ/L (98-107); CREATININE FOR GFR 0.94 MG/DL (0.70-1.30); GLOMERULAR FILTRATION RATE > 60.0 (>56); GLUCOSE, FASTING 115 MG/DL (70-100); POTASSIUM SERUM 4.4 MEQ/L (3.5-5.1); SODIUM LEVEL 144 MEQ/L (136-145)
== END ==
LOC: M WUC 15:17
DX: Z01.818 Encounter for other preprocedural examination (principal); I70.212 Atherosclerosis of native arteries of extremities with intermittent claudication, left leg; D69.8 Other specified hemorrhagic conditions
CPT/HCPCS: 80048

== ENCOUNTER → 2018-05-11 | Outpatient (CLI) | payer MEDICARE, MEDICAID ==
[2018-05-11 13:48] LABS: BLOOD UREA NITROGEN 23 MG/DL (7-18)
[2018-05-11 13:48] LABS: CREATININE FOR GFR 0.93 MG/DL (0.70-1.30); GLOMERULAR FILTRATION RATE > 60.0 (>56)
== END ==
LOC: M WUC 12:31
DX: I70.212 Atherosclerosis of native arteries of extremities with intermittent claudication, left leg (principal)
CPT/HCPCS: 82565

== ENCOUNTER → 2018-10-15 | Outpatient (REF) | payer MEDICARE, MEDICAID ==
[~2018-10-15] MED LIST changes: -AMLO5TAB2 PO; +AMLO5TAB6 PO; +AMOX875T PO; +ASCO25TA PO; +CEPH500C PO; +CLEO300C2 PO; +GABA600T4 PO; -LOSA100T36 PO; +LOSA100T50 PO; +METF750T PO; +METO1TAB87; +NORC1TAB4 PO; +OMEP20CA3 PO; +OXYC1TAB23 PO; +TYLE325T5 PO; +VENTAER INH
[2018-10-15 11:56] LABS: BLOOD UREA NITROGEN 22 MG/DL (7-18); GLOMERULAR FILTRATION RATE > 60.0 (>49)
== END ==
LOC: M LABDRWAD 10:32
PROVIDERS: ATTEND Surgery Vascular Surgery
DX: I70.411 Atherosclerosis of autologous vein bypass graft(s) of the extremities with intermittent claudication, right leg (principal)

== ENCOUNTER → 2018-10-21 | Outpatient (CLI) | payer MEDICARE, MEDICAID ==
[~2018-10-21] MED LIST changes: +ISOVUE-370 76% 100ML VIAL (Q9967) As Ordered ONE
--- NOTE | 2018-10-21 16:54 | REP ---
CT angiography of the abdominal aorta and lower extremity runoff arteries with IV contrast: History: Claudication. Right leg. Autologous vein bypass. 100 ml of intravenous Isovue [address] abnormalities : There is a small cyst in the upper pole of the left kidney and a 2.1 cm cyst is seen in the mid position of the right kidney. These are unchanged from comparison study July 20, 2017. There is left colonic diverticulosis without CT evidence of diverticulitis. There is a healing rib fracture on the left involving rib number 10 laterally. There is an old wedge compression deformity at L4. Angiographic findings: The celiac and superior mesenteric axes are widely patent. Singular nonstenotic renal artery origins are seen bilaterally. There is mild calcification at the origin of both renal arteries. The suprarenal abdominal aorta is normal in caliber. The infrarenal abdominal aorta shows moderate nearly circumferential mixed plaquing with calcification. No high-grade aortic stenosis is seen. There is calcific plaquing at the origin of both common iliacs. 50% stenosis seen at the origin of the right common iliac and 75% stenosis is seen at the origin of the left common iliac artery. There is a stent in place in the left common iliac artery across the bifurcation. The stent and the internal iliac artery are patent. The left external iliac artery is patent. A second stent is seen in place in the external iliac artery on the left which is patent. There is a high-grade stenosis at its distal end, however, 75-80%. There is 50% stenosis in the common femoral artery on the left due to calcific plaquing posteriorly. The bifurcation is patent. The left profunda femoral artery is patent. There is an occluded stent in the hamilton superficial femoral artery on the left. The hamilton left superficial femoral artery is occluded all the way to the popliteal. There is a patent left fem-pop bypass graft without high-grade stenosis. At the distal anastomosis, the popliteal artery is perfused. Three-vessel calf runoff is seen on source images to the distal calf on the left. On the right, there is a stent in the common iliac artery, which is patent. There is plaquing in the external iliac artery and a 70% stenosis is seen in the distal external iliac artery on the right. 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 The right profunda femoral artery branches are patent. The hamilton right superficial femoral artery is occluded. There appears to be a right fem-pop graft which is occluded as well. The right popliteal artery is reconstituted via collaterals but heavily calcified and somewhat stenotic. The calf trifurcation is opacified and three-vessel calf runoff is seen relatively intact to the distal calf in fact across the ankle. Impression: Bilateral superficial femoral artery occlusions with occluded stents on the left. A patent left fem-pop graft. Occluded right fem-pop graft. Reconstituted right popliteal and trifurcation vessels with fairly good runoff on the right and to some degree on the left. Patent iliac stents. High-grade stenosis at the origin of the left common iliac and the left external iliac at the distal end of the stent. Moderate stenosis the right external iliac. Electronically Signed by Tray Zhang MD 10/21/2018 06:18 P
== END ==
LOC: M RAD 13:04
PROVIDERS: ATTEND Physician Assistant
DX: I70.411 Atherosclerosis of autologous vein bypass graft(s) of the extremities with intermittent claudication, right leg (principal); N28.1 Cyst of kidney, acquired; I70.0 Atherosclerosis of aorta
CPT/HCPCS: 75635; Q9967

== ENCOUNTER → 2018-10-25 | Outpatient (REF) | payer MEDICARE, MEDICAID ==
[~2018-10-25] MED LIST changes: -ISOVUE-370 76% 100ML VIAL (Q9967) As Ordered ONE
[2018-10-25 13:50] LABS: BLOOD UREA NITROGEN 27 MG/DL (7-18); CREATININE FOR GFR 1.09 MG/DL (0.70-1.30); GLOMERULAR FILTRATION RATE > 60.0 (>49)
== END ==
LOC: M LAB REF 13:20
PROVIDERS: ATTEND Surgery Vascular Surgery
DX: I70.411 Atherosclerosis of autologous vein bypass graft(s) of the extremities with intermittent claudication, right leg (principal)

== ENCOUNTER → 2018-11-22 | Outpatient (CLI) | payer MEDICARE, MEDICAID ==
[2018-11-22 18:29] LABS: BASO % 0.1 % (0.0-1.0); EOS % 0.4 % (0.0-3.0); HEMATOCRIT 39.9 % (42.0-52.0); LYMPH # 1.3 10^3/uL (1.5-4.5); LYMPH % 18.9 % (24.0-44.0); MEAN CORPUSCULAR HEMOGLOBIN 28.8 pg (27.0-33.0); MEAN CORPUSCULAR HGB CONC 32.6 g/dl (32.0-36.5); MEAN CORPUSCULAR VOLUME 88.5 fl (80.0-96.0); MONO # 0.6 10^3/uL (0.0-0.8); NEUTROPHILS % 72.2 % (36.0-66.0); PLATELET COUNT, AUTOMATED 175 10^3/uL (150-450); RED BLOOD COUNT 4.51 10^6/uL (4.30-6.10); WHITE BLOOD COUNT 6.9 10^3/uL (4.0-10.0)
[2018-11-22 18:31] LABS: BLOOD UREA NITROGEN 13 MG/DL (7-18); CALCIUM LEVEL 8.2 MG/DL (8.8-10.2); CARBON DIOXIDE LEVEL 29 MEQ/L (21-32); CHLORIDE LEVEL 106 MEQ/L (98-107); GLOMERULAR FILTRATION RATE > 60.0 (>49); GLUCOSE, FASTING 62 MG/DL (70-100); POTASSIUM SERUM 3.9 MEQ/L (3.5-5.1); SODIUM LEVEL 142 MEQ/L (136-145)
[2018-11-22 18:44] LABS: INR 0.93; PROTHROMBIN TIME 12.6 SECONDS (12.1-14.4)
[2018-11-22 18:45] LABS: PARTIAL THROMBOPLASTIN TIME 25.2 SECONDS (25.4-37.6)
== END ==
LOC: M LABDRWAD 14:15
PROVIDERS: ATTEND Surgery Vascular Surgery
DX: Z01.818 Encounter for other preprocedural examination (principal); I70.213 Atherosclerosis of native arteries of extremities with intermittent claudication, bilateral legs; D69.8 Other specified hemorrhagic conditions

== ENCOUNTER → 2018-12-09 | Outpatient (REF) | payer MEDICARE, MEDICAID ==
[2018-12-09 13:29] LABS: BLOOD UREA NITROGEN 20 MG/DL (7-18); CREATININE FOR GFR 0.98 MG/DL (0.70-1.30); GLOMERULAR FILTRATION RATE > 60.0 (>49)
== END ==
LOC: M LABDRWAD 12:23
PROVIDERS: ATTEND Surgery Vascular Surgery
DX: I70.213 Atherosclerosis of native arteries of extremities with intermittent claudication, bilateral legs (principal)

== ENCOUNTER → 2018-12-21 | Outpatient (REF) | payer MEDICARE, MEDICAID ==
[2018-12-21 13:58] LABS: BLOOD UREA NITROGEN 17 MG/DL (7-18); CREATININE FOR GFR 0.86 MG/DL (0.70-1.30); GLOMERULAR FILTRATION RATE > 60.0 (>49)
== END ==
LOC: M LAB REF 12:17
PROVIDERS: ATTEND Surgery Vascular Surgery
DX: I70.213 Atherosclerosis of native arteries of extremities with intermittent claudication, bilateral legs (principal)

== ENCOUNTER → 2019-02-02 | Outpatient (CLI) | payer MEDICARE, MEDICAID ==
[~2019-02-02] MED LIST changes: -ASCO25TA PO; +HYDR-3715 PO; -NORC1TAB4 PO; +NORC1TAB7 PO; -NORCOTAB PO; +VITA1TAB23 PO
--- NOTE | 2019-02-02 15:13 | REP ---
CAROTID ULTRASOUND: Real-time ultrasound evaluation and duplex Doppler interrogation of the extracranial carotid vasculature is performed. There is mild plaquing and narrowing in both carotid bulbs extending into the internal and external carotid arteries. Luminal narrowing is less than 50%. There is no evidence of hemodynamically significant stenosis of either internal carotid artery. Normal flow velocities are seen. The right vertebral artery demonstrates normal direction of flow. There is no flow in the left vertebral artery. RIGHT LEFT Peak systolic velocity ICA 68.5 cm/s 94.30 cm/s End diastolic velocity ICA 23.7 cm/s 35.9 cm/s Peak systolic velocity CCA 90 cm/s 95.3 cm/s Peak systolic velocity ECA 90.7 cm/s 92.5 cm/s ICA/CCA ratio 0.76 0.99 IMPRESSION: Bilateral luminal narrowing of the internal carotid arteries less than 50%. No evidence of hemodynamically significant stenosis. Electronically Signed by Miguel Velázquez MD 02/02/2019 03:04 P
== END ==
LOC: M RAD 14:02
PROVIDERS: ATTEND Physician Assistant
DX: Z86.79 Personal history of other diseases of the circulatory system (principal)

== ENCOUNTER → 2019-08-10 | Outpatient (CLI) | payer MEDICARE, MEDICAID ==
[~2019-08-10] MED LIST changes: -METF750T PO; +METF750T36 PO; -OMEP20CA3 PO; +OMEP20CA4 PO
[2019-08-10 17:06] LABS: BLOOD UREA NITROGEN 21 MG/DL (7-18); CALCIUM LEVEL 8.9 MG/DL (8.8-10.2); CARBON DIOXIDE LEVEL 30 MEQ/L (21-32); CHLORIDE LEVEL 102 MEQ/L (98-107); CREATININE FOR GFR 0.98 MG/DL (0.70-1.30); GLOMERULAR FILTRATION RATE > 60.0 (>49); GLUCOSE, FASTING 281 MG/DL (70-100); POTASSIUM SERUM 4.1 MEQ/L (3.5-5.1); SODIUM LEVEL 137 MEQ/L (136-145)
[2019-08-10 17:17] LABS: BASO % 0.4 % (0.0-1.0); EOS # 0.1 10^3/uL (0.0-0.5); EOS % 1.4 % (0.0-3.0); HEMATOCRIT 40.3 % (42.0-52.0); LYMPH # 1.3 10^3/uL (1.5-5.0); LYMPH % 27.3 % (24.0-44.0); MEAN CORPUSCULAR HEMOGLOBIN 28.3 pg (27.0-33.0); MEAN CORPUSCULAR HGB CONC 32.3 g/dl (32.0-36.5); MEAN CORPUSCULAR VOLUME 87.8 fl (80.0-96.0); MONO # 0.4 10^3/uL (0.0-0.8); MONO % 8.1 % (0.0-5.0); NEUTROPHILS # 3.1 10^3/uL (1.5-8.5); NEUTROPHILS % 62.4 % (36.0-66.0); PLATELET COUNT, AUTOMATED 165 10^3/uL (150-450); RED BLOOD COUNT 4.59 10^6/uL (4.30-6.10); WHITE BLOOD COUNT 4.9 10^3/uL (4.0-10.0)
[2019-08-10 17:27] LABS: INR 0.96; PARTIAL THROMBOPLASTIN TIME 26.6 SECONDS (25.0-38.4); PROTHROMBIN TIME 12.5 SECONDS (11.8-14.0)
== END ==
LOC: M WUC 11:07
PROVIDERS: ATTEND Surgery Vascular Surgery
DX: Z01.818 Encounter for other preprocedural examination (principal); I70.212 Atherosclerosis of native arteries of extremities with intermittent claudication, left leg; D69.8 Other specified hemorrhagic conditions

== ENCOUNTER → 2019-08-26 | Outpatient (REF) | payer MEDICARE, MEDICAID ==
[2019-08-26 13:10] LABS: BLOOD UREA NITROGEN 21 MG/DL (7-18); CREATININE FOR GFR 1.16 MG/DL (0.70-1.30); GLOMERULAR FILTRATION RATE > 60.0 (>49)
== END ==
LOC: M LABDRAW1 11:42
PROVIDERS: ATTEND Surgery Vascular Surgery
DX: I70.212 Atherosclerosis of native arteries of extremities with intermittent claudication, left leg (principal)

== ENCOUNTER → 2020-03-08 | Outpatient (CLI) | payer MEDICARE, MEDICAID ==
[~2020-03-08] MED LIST changes: +AMLO10TA5 PO; +CHLO25TA PO; +INSUHUMDS SC; +OMEP1CAP73 PO; -OMEP20CA4 PO; +PARO20TA3 PO; +PREG150C PO; +VALS1TAB68 PO
[2020-03-08 10:21] LABS: HEMATOCRIT 40.2 % (42.0-52.0); HEMOGLOBIN 13.6 g/dl (13.5-17.5); MEAN CORPUSCULAR HGB CONC 33.8 g/dl (32.0-36.5); MEAN CORPUSCULAR VOLUME 88.7 fl (80.0-96.0); PLATELET COUNT, AUTOMATED 177 10^3/uL (150-450); RED BLOOD COUNT 4.53 10^6/uL (4.30-6.10); WHITE BLOOD COUNT 4.9 10^3/uL (4.0-10.0)
[2020-03-08 11:03] LABS: BLOOD UREA NITROGEN 14 MG/DL (7-18); CALCIUM LEVEL 7.8 MG/DL (8.8-10.2); CARBON DIOXIDE LEVEL 31 MEQ/L (21-32); CHLORIDE LEVEL 100 MEQ/L (98-107); CREATININE FOR GFR 0.96 MG/DL (0.70-1.30); GLOMERULAR FILTRATION RATE > 60.0 (>49); GLUCOSE, FASTING 361 MG/DL (70-100); POTASSIUM SERUM 4.7 MEQ/L (3.5-5.1); SODIUM LEVEL 137 MEQ/L (136-145)
== END ==
LOC: M WUC 08:38
PROVIDERS: ATTEND Family Medicine
DX: Z01.818 Encounter for other preprocedural examination (principal); T82.868A Thrombosis due to vascular prosthetic devices, implants and grafts, initial encounter

== ENCOUNTER → 2020-03-08 | Outpatient (CLI) | payer MEDICARE, MEDICAID ==
[2020-03-08 11:02] LABS: BLOOD UREA NITROGEN 13 MG/DL (7-18); CREATININE FOR GFR 0.94 MG/DL (0.70-1.30); GLOMERULAR FILTRATION RATE > 60.0 (>49)
== END ==
LOC: M WUC 08:34
PROVIDERS: ATTEND Surgery Vascular Surgery
DX: T82.868A Thrombosis due to vascular prosthetic devices, implants and grafts, initial encounter (principal)

== ENCOUNTER → 2020-03-12 | Outpatient (CLI) | payer MEDICARE, MEDICAID ==
--- NOTE | 2020-03-12 12:00 | ECGEPIP ---
[facility] Test Date: 2020-03-12 Pat Name: AVA CANNON Department: Room: - Gender: Male Manager Lsw: HITESH : 1960 Requested By: BOYD MONTENEGRO Order Number: [id number] Reading MD: Glen Blancas Measurements Intervals [place] Rate: 74 P: 60 NM: 179 QRS: 269 QRSD: 174 T: 76 QT: 422 QTc: 470 Interpretive Statements ELECTRONIC VENTRICULAR PACEMAKER Previous tracing done 10-22-17 was A-V paced Electronically Signed on 03-12-2020 11:59:54 EDT by Glen Blancas
== END ==
LOC: M EKG 08:37
PROVIDERS: ATTEND Family Medicine
DX: Z01.818 Encounter for other preprocedural examination (principal); Z95.0 Presence of cardiac pacemaker

== ENCOUNTER → 2020-03-16 | Outpatient (CLI) | payer MEDICARE, MEDICAID | LOC: M LABSMTC 09:40 | PROVIDERS: ATTEND Anesthesiology | DX: Z11.59 Encounter for screening for other viral diseases (principal) | CPT/HCPCS: C9803; U0003 ==

== ENCOUNTER 2020-03-19 08:19 | Day surgery (SDC) | payer MEDICARE, MEDICAID ==
[~2020-03-19] VITALS: Ht 170.2 cm; Wt 94.5 kg
[~2020-03-19 08:19] MED LIST changes: +LIDOCAINE 1% MDV 20ML VIAL SQ PRN
[2020-03-19] MEDS ORDERED: ceFAZolin SOD 2 GM in IV 1 EA IV ONE (08:30)
[2020-03-19] MEDS ORDERED: LR 1,000 ML IV ONE (08:30)
[2020-03-19] MEDS ORDERED: BUPIVACAINE LIPOSOME/PF 1.3% 20ML VIAL (13.3MG/ML)(EXPAREL)(C9290 PER1MG) As Ordered ONE (09:39)
[2020-03-19] MEDS ORDERED: LIDOCAINE 1% SDV 30ML VIAL As Ordered ONE (09:39)
[2020-03-19] MEDS ORDERED: BUPIVACAINE HCL 0.25% 10ML VIAL As Ordered ONE (09:39)
[2020-03-19] MEDS ORDERED: dexameTHASONE 4 MG/ML 1ML VIAL (J1100 PER 1MG) As Ordered ONE (09:58)
[2020-03-19] MEDS ORDERED: SUGAMMADEX SODIUM 500 MG/5 ML VIAL (BRIDION) As Ordered ONE (09:58)
[2020-03-19] MEDS ORDERED: fentaNYL 250 MCG/5 ML INJECTION (J3010) As Ordered ONE (09:58)
[2020-03-19] MEDS ORDERED: LIDOCAINE 2% 100MG/5ML SDV (FOR ANES.) As Ordered ONE (09:58)
[2020-03-19] MEDS ORDERED: ONDANSETRON 4MG/2ML VIAL As Ordered ONE (09:58)
[2020-03-19] MEDS ORDERED: ROCURONIUM BROMIDE 50 MG/5 ML VIAL As Ordered ONE ×2 (09:58→10:30)
[2020-03-19] MEDS ORDERED: propofoL 200 MG/20 ML VIAL As Ordered ONE (09:58)
[2020-03-19] MEDS ORDERED: METOCLOPRAMIDE INJ 10MG/2ML VIAL (J2765 PER 1) As Ordered ONE (09:58)
[2020-03-19] MEDS ORDERED: MIDAZOLAM INJ 2MG/2ML VIAL (J2250 PER 1MG) As Ordered ONE (09:58)
[2020-03-19] MEDS ORDERED: ACETAMINOPHEN 1000MG 100ML IV BTL (OFIRMEV) (J0131 PER 10MG) As Ordered ONE (09:59)
[2020-03-19] MEDS ORDERED: LABETALOL 100MG/20ML VIAL As Ordered ONE (10:12)
[2020-03-19] MEDS ORDERED: ALBUTEROL 6.7GM INHALER **FOR ANES. CART/OMNICELL ONLY As Ordered ONE (10:13)
[2020-03-19] MEDS ORDERED: DESFLURANE 240 ML INHALANT As Ordered ONE (11:40)
[2020-03-19] MEDS ORDERED: PERCOCET 5MG/325MG TAB PO PRN (12:45)
[2020-03-19] MEDS ORDERED: LR 1,000 ML IV SCH (12:45)
[2020-03-19] MEDS ORDERED: LABETALOL 100MG/20ML VIAL IV SCH (12:45)
[2020-03-19] MEDS ORDERED: MEPERIDINE INJ 25 MG/ML VIAL (J2175) IV PRN (12:45)
[2020-03-19] MEDS ORDERED: METOCLOPRAMIDE INJ 10MG/2ML VIAL (J2765 PER 1) IV PRN (12:45)
[2020-03-19] MEDS ORDERED: KETOROLAC 30 MG/ML 1ML VIAL IV PRN (12:45)
[2020-03-19] MEDS ORDERED: NORCO, ANEXSIA 5/325MG TABLET (HYDROcodone/ACETAMINOPHEN) PO PRN (12:45)
[2020-03-19] MEDS ORDERED: ONDANSETRON 4MG/2ML VIAL IV PRN ×2 (12:45)
[2020-03-19] MEDS ORDERED: fentaNYL 100 MCG/2 ML INJECTION (J3010) IV PRN (12:45)
[2020-03-19 15:25] VITALS: BP 191/91
--- NOTE | 2020-03-21 03:31 | ROOPDOC ---
[facility] Report Of Operation Report of Operation DATE OF PROCEDURE: 03/19/20 PREPROCEDURE DIAGNOSES: Right inguinal hernia. POSTPROCEDURE DIAGNOSES: Incarcerated direct right inguinal hernia. PROCEDURE: Robotic-assisted laparoscopic repair of right inguinal hernia (rTAPP). SURGEON: Hola Rios MD BOG CUTTER: Sybil Briggs NP (assisted me with insertion of the ports, management and adjustment of the robotic arms, exchange of instruments, placement of mesh intra-abdominally, closure ports) ANESTHESIA: Gen. anesthesia. ESTIMATED BLOOD LOSS: Approximately 20 mL. COMPLICATIONS: None. REMARKS: 59-year-old male complaining of symptomatic right inguinal hernia for at least 3 weeks prior to seeing id, confirmed on examination. He has had prior history of multiple vascular surgeries with incision and both groin areas. PROCEDURE NOTE: Direct right inguinal hernia with large incarcerated preperitoneal fat tissue that was reduced back into the preperitoneum. No indirect hernia defect. Small cord lipoma reduced inside of the inguinal canal. A 15 x 10 cm Parietex Pro disk grinder mesh was placed. DESCRIPTION OF PROCEDURE:. Patient received 2 g of Ancef IV preoperatively for wound prophylaxis. Patient was brought to the operating room, placed supine on the operating table. Compression boots placed in both lower extremities for DVT prophylaxis. General anesthesia started. His abdomen and groin/pelvic area then prepped and draped in the usual sterile fashion. A fletcher catheter was placed to bring down the urinary bladder for surgery. After a surgical timeout we began our surgery. Patient has an obese rounded abdomen. Entry to the abdomen done through a small incision 4 cms above the umbilical skin cleft which is at the top of the curvature of his abdomen. A Veress needle is inserted on a controlled fashion. CO2 insufflation started to pressure 15 mmHg. Using the same incision an 8 mm robotic trochard was then placed under direct vision of a 5mm laparoscope. The insertion site was inspected for injury and none was found. Patient was then positioned on a 12 degreeTrendelenburg position for adequate view of the hernia defect. He has bulky omentum as well as the size of the bowels occuying a significant amount of the intraperitoneal space which hampers the view of the myopectineal orifice. 2 8mm working ports placed to the right and left of the camera trochar along the same line. The da Wen robot tower was then positioned in place and the trochars docked onto the robot. The robotic instruments were placed and positioned. I then unscrubbed and took control of the camera and the laparoscopic instruments at the surgeon's console. I used a 0 degree 8 mm robotic laparoscope, A forced bipolar forceps with bipolar cautery on left arm and A henry-cut laparoscopic scissor with unipolar cautery in arm 1 was used, later on exhanged for a henry suture cut needle armored car guard and driver. Operative Findings: The left side was not visible as the bowels are covering the area. The right side shows a direct hernia defect with no indirect peritoneal defect. The peritoneum was opened up about 5 cm above the superior edge of the direct fascial defect of the inguinal hernia starting at the medial umbilical ligament going i laterally towards the level of the anterior superior iliac spine. I maintained a preperitoneal dissection, keeping the parietal covering of the inferior epigastric vessels intact. The peritoneal envelope was then developed approaching the space of Retzius bringing the urinary bladder down. The pubic tubercle was exposed past the symphysis pubis and 2 cms inferior to the lower edge fo the pubic tubercle. The lateral space of Bogros was similarly opened up keeping the parietal envelope to the psoas muscle to prevent injury to the nerves traversing the muscle. . On approaching the inguinal hernia defect the, there was a bulky preperitoneal tissue incarcerated within the direct hernia whi ch took some effort to reduce and once reduced into the preperitoneum was taking a lot of space at the area. The attenuated transversalis fascia or pseudosac was adherent still to the hernia fat content and I carefully dissected and freed this up. The actual defect itself was only about 2 cms but I actually pulled out maybe a 4 cm mass of fat. The peritoneum coursing at the indirect hernia space was pulled back into the preperitoneal space and carefully dissected off the testicular vessels and vas deferens, keeping this structures in place and with no manipulation of the testicular structures. The inguinal canl contents were inspected and a small cord lipoma was found and reduced back to the preperitoneal space. The perioneum was dissected further inferior to create adequate space for the mesh. The vas deferens was parietalized partially to free up the petioneum inferiorly and medially. After fully dissecting the preperitoneal space, I checked for adequate hemostasis, as well as for presence of femoral hernia( none found), direct hernia and adequacy of the space created. I chose a 15 x 10 cm Parietex Pro Community [employer] Aide self fixating mesh. This was folded with the center of the mesh marked for positioning. This was then delivered intra- abdominally through one of the trochars. In a controlled fashion this was positioned into the preperitoneal space with the medial side past the symphysis pubis, inferiorly below the pubic tubercle and center of the mesh abutting the inferior epigastric vessels,laterally at the Space of Bogros. This was carefully pressed onto the abdominal wall and made sure that it was flattened up. About a 1x1 cm oblique portion of the lateral superior mesh was cut to accomodate the curvature of his body habitus. After careful placement of the mesh, the peritoneal opening was then closed with a running suture of 2-0V LOC suture. As the hernia sac was long and redundant I incorporated the hernia sac into the closure of the peritoneum. I then surveyed the abdomen and pelvis for any signs of injury. The instruments were removed. The abdomen was deflated. All ports were removed. The skin incisions were closed with 4-0 Monocryl in subcuticular fashion. The incisions were covered with Dermabond. The port sites were again infiltrated with local anesthesia. An ilioinguinal nerve block was also performed. Patient was promptly awakened, extubated and brought to the recovery room stable Count of sponges and instruments were verified correct. HOLA RIOS MD Mar 20, 2020 08:54
== END 2020-03-19 16:02 | disposition home or self-care (01) ==
LOC: M SDC 08:19
PROVIDERS: ATTEND Surgery
DX: K40.30 Unilateral inguinal hernia, with obstruction, without gangrene, not specified as recurrent (principal); I10 Essential (primary) hypertension; I25.10 Atherosclerotic heart disease of native coronary artery without angina pectoris; Z95.0 Presence of cardiac pacemaker; E78.00 Pure hypercholesterolemia, unspecified; J45.909 Unspecified asthma, uncomplicated; G47.30 Sleep apnea, unspecified; K21.9 Gastro-esophageal reflux disease without esophagitis; E11.9 Type 2 diabetes mellitus without complications; F32.9 Major depressive disorder, single episode, unspecified; Z79.4 Long term (current) use of insulin; Z79.899 Other long term (current) drug therapy; Z79.84 Long term (current) use of oral hypoglycemic drugs
CPT/HCPCS: 49650; C1781; J0131; J0690; J1100; J2250; J2405; J2765; J3010

== ENCOUNTER → 2020-05-10 | Outpatient (CLI) | payer MEDICARE, MEDICAID ==
[~2020-05-10] MED LIST changes: -AMLO10TA5 PO; +AMLO1TAB24 PO; +AMLO1TAB25 PO; -AMLO5TAB6 PO; +ASCO250T20 PO; +E-Z-GAS II EFFERVESCENT PACKET (SODIUM BICARB./CITRIC ACID/SIMETHICONE) As Ordered ONE; +E-Z-HD 98% w/w 340GM SUSP BTL As Ordered ONE; +E-Z-PAQUE 96% w/w SUSP 176GM BTL As Ordered ONE; +ISOVUE-370 76% 100ML VIAL As Ordered ONE; -LIDOCAINE 1% MDV 20ML VIAL SQ PRN; -VITA1TAB23 PO
--- NOTE | 2020-06-26 11:17 | REP ---
AIR CONTRAST ESOPHAGRAM: The procedure was performed under the direct supervision of Dr. Zhang. The images were reviewed with Dr. Zhang. FINDINGS: A single view PA chest x-ray is submitted as a scout executive film. The superior mediastinal structures are midline. The heart size is within normal limits. The lungs are clear. There is a dual lead pacemaker in place. Liquid barium and gas-producing granules were given in the erect position as well as liquid barium in the prone oblique positions in order to perform a double contrast esophagram examination. During the oral and pharyngeal stages of deglutition, there is laryngeal penetration. Esophageal transport is prompt and efficient and there is no esophagitis, stricture or mucosal ring. There is a sliding type hiatal hernia. There is gastroesophageal reflux demonstrated to above the level of the varsha. Note is made of degenerative disc disease of the cervical spine. IMPRESSION: 1. There is laryngeal penetration. 2. There is a sliding type hiatal hernia. There is gastroesophageal reflux demonstrated to above the level of the varsha. MTDD
== END ==
LOC: M RAD 08:00
PROVIDERS: ATTEND Otolaryngology
DX: R13.10 Dysphagia, unspecified (principal); K44.9 Diaphragmatic hernia without obstruction or gangrene; K21.9 Gastro-esophageal reflux disease without esophagitis
CPT/HCPCS: 70491; 74220; Q9967

== ENCOUNTER → 2021-01-22 | Outpatient (CLI) | payer MEDICARE, MEDICAID ==
[~2021-01-22] MED LIST changes: -E-Z-GAS II EFFERVESCENT PACKET (SODIUM BICARB./CITRIC ACID/SIMETHICONE) As Ordered ONE; -E-Z-HD 98% w/w 340GM SUSP BTL As Ordered ONE; -E-Z-PAQUE 96% w/w SUSP 176GM BTL As Ordered ONE; -ISOVUE-370 76% 100ML VIAL As Ordered ONE
--- NOTE | 2021-01-22 09:15 | REP ---
INDICATION: LUNG SCREENING COMPARISON: None. TECHNIQUE: Axial noncontrast images from the thoracic inlet to the upper abdomen using low-dose lung screening technique (LDCT). FINDINGS: Bilateral lung escalera are relatively well aerated, symmetric and clear. No focal consolidation, significant nodule or mass lesion. No pleural effusion. No pneumothorax. Tracheobronchial tree is patent. IMPRESSION: Lung-RADS category 1. No suspicious nodule or mass lesion. Management recommendations include annual low-dose CT surveillance. <Electronically signed by Timothy Barahona > 01/22/21 0921
== END ==
LOC: M RAD 07:49
PROVIDERS: ATTEND Family Medicine
DX: Z12.2 Encounter for screening for malignant neoplasm of respiratory organs (principal); F17.200 Nicotine dependence, unspecified, uncomplicated

== ENCOUNTER → 2021-05-21 | Outpatient (CLI) | payer MEDICARE, MEDICAID ==
[2021-05-21 08:26] LABS: BASO % 0.5 % (0.0-1.0); EOS # 0.1 10^3/uL (0.0-0.5); EOS % 1.5 % (0.0-3.0); HEMATOCRIT 42.6 % (42.0-52.0); HEMOGLOBIN 14.2 g/dl (13.5-17.5); LYMPH % 16.1 % (24.0-44.0); MEAN CORPUSCULAR HEMOGLOBIN 28.9 pg (27.0-33.0); MEAN CORPUSCULAR HGB CONC 33.3 g/dl (32.0-36.5); MEAN CORPUSCULAR VOLUME 86.6 fl (80.0-96.0); MONO # 0.4 10^3/uL (0.0-0.8); MONO % 6.5 % (2.0-8.0); NEUTROPHILS # 4.6 10^3/uL (1.5-8.5); NEUTROPHILS % 74.7 % (36.0-66.0); PLATELET COUNT, AUTOMATED 168 10^3/uL (150-450); RED BLOOD COUNT 4.92 10^6/uL (4.30-6.10); WHITE BLOOD COUNT 6.1 10^3/uL (4.0-10.0)
--- NOTE | 2021-05-21 08:26 | REP ---
INDICATION: SHORTNESS OF BREATH- LABS FIRST. COMPARISON: 10/23/2017 the latest prior TECHNIQUE: PA and lateral FINDINGS: Cardiomediastinal silhouette and pacemaker are unchanged. Lung escalera are clear and stable. No acute patchy parenchymal opacities or pleural effusions have developed. There is chronic pulmonary vascular redistribution. The osseous structures are stable and intact IMPRESSION: Pulmonary vascular redistribution status quo. No significant change from the prior exam. The small amount of pleural fluid seen previously has cleared. <Electronically signed by Igor Saarvia > 05/21/21 0966
[2021-05-21 09:11] LABS: BLOOD UREA NITROGEN 25 MG/DL (7-18); CALCIUM LEVEL 8.5 MG/DL (8.8-10.2); CARBON DIOXIDE LEVEL 32 MEQ/L (21-32); CHLORIDE LEVEL 100 MEQ/L (98-107); CREATININE FOR GFR 0.82 MG/DL (0.70-1.30); GLOMERULAR FILTRATION RATE > 60.0 (>49); GLUCOSE, FASTING 340 MG/DL (70-100); NT-PRO BNP 104 PG/ML (<125); POTASSIUM SERUM 4.6 MEQ/L (3.5-5.1); SODIUM LEVEL 136 MEQ/L (136-145)
== END ==
LOC: M LAB 07:28
PROVIDERS: ATTEND Physician Assistant
DX: R06.02 Shortness of breath (principal)

== ENCOUNTER → 2021-06-21 | Outpatient (CLI) | payer MEDICARE, MEDICAID | LOC: M LABSMTC 10:33 | PROVIDERS: ATTEND Surgery Vascular Surgery | DX: Z20.822 Contact with and (suspected) exposure to COVID-19 (principal) ==

== ENCOUNTER 2021-06-22 23:28 | Emergency (ER) | payer MEDICARE, MEDICAID ==
[~2021-06-22] VITALS: Ht 172.7 cm; Wt 93.4 kg
[~2021-06-22 23:28] MED LIST changes: +LOSA100T45 PO; -LOSA100T50 PO
[2021-06-22 23:29] VITALS: BP 142/78
== END 2021-06-23 02:47 | disposition left against medical advice (07) ==
LOC: M ED 23:28
DX: Z53.21 Procedure and treatment not carried out due to patient leaving prior to being seen by health care provider (principal)

== ENCOUNTER 2022-01-25 00:35 | Emergency (ER) | payer MEDICARE, MEDICAID ==
[~2022-01-25] VITALS: Ht 175.3 cm; Wt 80.0 kg
[2022-01-25 01:44] LABS: BASO % 0.4 % (0.0-1.0); EOS # 0.1 10^3/uL (0.0-0.5); EOS % 1.8 % (0.0-3.0); HEMATOCRIT 43.2 % (42.0-52.0); HEMOGLOBIN 14.1 g/dl (13.5-17.5); LYMPH # 1.1 10^3/uL (1.5-5.0); LYMPH % 20.5 % (24.0-44.0); MEAN CORPUSCULAR HEMOGLOBIN 28.4 pg (27.0-33.0); MEAN CORPUSCULAR HGB CONC 32.6 g/dl (32.0-36.5); MEAN CORPUSCULAR VOLUME 86.9 fl (80.0-96.0); MONO # 0.5 10^3/uL (0.0-0.8); MONO % 8.3 % (2.0-8.0); NEUTROPHILS # 3.8 10^3/uL (1.5-8.5); NEUTROPHILS % 68.3 % (36.0-66.0); PLATELET COUNT, AUTOMATED 185 10^3/uL (150-450); RED BLOOD COUNT 4.97 10^6/uL (4.30-6.10); WHITE BLOOD COUNT 5.5 10^3/uL (4.0-10.0)
[2022-01-25 02:14] LABS: BLOOD UREA NITROGEN 24 MG/DL (7-18); CALCIUM LEVEL 8.7 MG/DL (8.8-10.2); CARBON DIOXIDE LEVEL 27 MEQ/L (21-32); CHLORIDE LEVEL 104 MEQ/L (98-107); GLOMERULAR FILTRATION RATE > 60.0 (>49); GLUCOSE, FASTING 292 MG/DL (70-100); POTASSIUM SERUM 4.1 MEQ/L (3.5-5.1); SODIUM LEVEL 139 MEQ/L (136-145)
[2022-01-25] MEDS ORDERED: HumuLIN R (REGULAR) INSULIN (NovoLIN R) **100U/ML** PER UNIT IV ONE (02:35)
[2022-01-25] MEDS ORDERED: ISOVUE-370 76% 100ML VIAL As Ordered ONE (02:41)
[2022-01-25 05:48] VITALS: BP 161/83
== END 2022-01-25 05:50 | disposition home or self-care (01) ==
LOC: EDBD 00:35 → M ED 00:35
DX: I73.9 Peripheral vascular disease, unspecified (principal); I10 Essential (primary) hypertension; E11.9 Type 2 diabetes mellitus without complications; E78.5 Hyperlipidemia, unspecified; F33.9 Major depressive disorder, recurrent, unspecified; K21.9 Gastro-esophageal reflux disease without esophagitis; Z79.899 Other long term (current) drug therapy; Z79.84 Long term (current) use of oral hypoglycemic drugs; Z79.4 Long term (current) use of insulin; Z79.01 Long term (current) use of anticoagulants; F17.210 Nicotine dependence, cigarettes, uncomplicated
CPT/HCPCS: 36415; 75635; 80048; 83605; 85025; 93971; 96374; 99284; J1815; Q9967

== ENCOUNTER → 2022-10-06 | Outpatient (CLI) | payer MEDICARE, MEDICAID | LOC: M RAD 08:15 | PROVIDERS: ATTEND Family Medicine | DX: S32.040A Wedge compression fracture of fourth lumbar vertebra, initial encounter for closed fracture (principal); X58.XXXA Exposure to other specified factors, initial encounter; Y92.9 Unspecified place or not applicable ==

== ENCOUNTER → 2022-12-23 | Outpatient (CLI) | payer MEDICARE, MEDICAID ==
[2022-12-23 07:35] LABS: HEMATOCRIT 47.8 % (42.0-52.0); HEMOGLOBIN 14.9 g/dl (13.5-17.5); MEAN CORPUSCULAR HEMOGLOBIN 27.3 pg (27.0-33.0); MEAN CORPUSCULAR HGB CONC 31.2 g/dl (32.0-36.5); MEAN CORPUSCULAR VOLUME 87.5 fl (80.0-96.0); PLATELET COUNT, AUTOMATED 188 10^3/uL (150-450); RED BLOOD COUNT 5.46 10^6/uL (4.30-6.10); WHITE BLOOD COUNT 7.2 10^3/uL (4.0-10.0)
[2022-12-23 08:06] LABS: BLOOD UREA NITROGEN 23 MG/DL (9-23); CALCIUM LEVEL 8.7 MG/DL (8.3-10.6); CARBON DIOXIDE LEVEL 34 MMOL/L (20-31); CHLORIDE LEVEL 100 MMOL/L (98-107); CREATININE FOR GFR 1.16 MG/DL (0.70-1.30); GLOMERULAR FILTRATION RATE > 60.0 (>49); GLUCOSE, FASTING 133 MG/DL (74-106); POTASSIUM SERUM 4.4 MMOL/L (3.5-5.1); SODIUM LEVEL 140 MMOL/L (136-145)
== END ==
LOC: M LAB 06:40
PROVIDERS: ATTEND Nurse Practitioner Family
DX: R06.02 Shortness of breath (principal)

== ENCOUNTER → 2022-12-29 | Outpatient (CLI) | payer MEDICARE, MEDICAID | LOC: M RAD 06:30 | PROVIDERS: ATTEND Family Medicine | DX: Z12.2 Encounter for screening for malignant neoplasm of respiratory organs (principal); Z87.891 Personal history of nicotine dependence ==

== ENCOUNTER 2023-03-05 01:26 | Inpatient (IN) | payer MEDICAID, MEDICARE, SELFPAY ==
[2023-03-05] VITALS (84 sets, daily range): BP systolic 77–148; BP diastolic 50–70; TEMP 97–99.4; O2SAT 86–100
[~2023-03-05] VITALS: Ht 172.7 cm; Wt 91.7 kg
[~2023-03-05 01:26] MED LIST changes: -LOSA100T45 PO; +LOSA100T46 PO
[2023-03-05] MEDS ORDERED: NS 3,000 ML in IV 1 EA IV ONE (01:35)
[2023-03-05] MEDS ORDERED: IPRATROPIUM 0.5MG/ALBUTEROL 2.5MG INH SOL UD 3ML (DUONEB) NEB ONE ×2 (01:35)
[2023-03-05] MEDS ORDERED: MORPHINE 4 MG/ML 1ML VIAL As Ordered ONE (01:50)
[2023-03-05] MEDS ORDERED: MORPHINE 4 MG/ML 1ML VIAL IV ONE (01:50)
[2023-03-05 01:51] LABS: HEMATOCRIT 35.7 % (42.0-52.0); HEMOGLOBIN 11.8 g/dl (13.5-17.5); MEAN CORPUSCULAR HEMOGLOBIN 27.8 pg (27.0-33.0); MEAN CORPUSCULAR HGB CONC 33.1 g/dl (32.0-36.5); PLATELET COUNT, AUTOMATED 233 10^3/uL (150-450); RED BLOOD COUNT 4.25 10^6/uL (4.30-6.10); WHITE BLOOD COUNT 9.2 10^3/uL (4.0-10.0)
[2023-03-05 02:02] LABS: INR 1.65; PROTHROMBIN TIME 19.8 SECONDS (12.5-14.5)
[2023-03-05 02:03] LABS: PARTIAL THROMBOPLASTIN TIME 36.6 SECONDS (24.8-34.2)
[2023-03-05 02:06] LABS: ATYPICAL LYMPH 2 % (0-5); DOHLE BODIES 1+; EOSINOPHILS 1 % (0-3); LYMPHOCYTES 7 % (16-44); METAMYELOCYTES 1 % (0-0); MONOCYTES 7 % (0-5); NEUTROPHILS 76 % (28-66); TOXIC GRANULATION 1+
[2023-03-05 02:07] LABS: PLATELET ESTIMATE NORMAL (NORMAL); TOXIC VACUOLATION 1+
[2023-03-05 02:13] LABS: ALBUMIN 2.4 G/DL (3.2-5.2); ALKALINE PHOSPHATASE 104 U/L (46-116); ALT/SGPT 29 U/L (7.0-40); AST/SGOT 32 U/L (<34); BILIRUBIN,DIRECT 0.2 MG/DL (<0.4); BILIRUBIN,TOTAL 0.7 MG/DL (0.3-1.2); BLOOD UREA NITROGEN 61 MG/DL (9-23); CALCIUM LEVEL 7.4 MG/DL (8.3-10.6); CARBON DIOXIDE LEVEL 25 MMOL/L (20-31); CHLORIDE LEVEL 93 MMOL/L (98-107); CK-MB VALUE MASS 1.3 NG/ML (<3.6); CPK CREATINE PHOSPHOKINASE 82 U/L (46-171); CREATININE FOR GFR 2.21 MG/DL (0.70-1.30); GLOMERULAR FILTRATION RATE 32.1 (>49); GLUCOSE, FASTING 168 MG/DL (74-106); MB/CK RELATIVE INDEX 1.58 (< OR =4); POTASSIUM SERUM 3.5 MMOL/L (3.5-5.1); SODIUM LEVEL 129 MMOL/L (136-145); TOTAL PROTEIN 5.5 G/DL (5.7-8.2)
[2023-03-05 02:22] LABS: ABG BASE EXCESS -0.5 (-2.0-2.0); ABG HCO3 25.1 MMOL/L (22.0-26.0); ABG O2 SATURATION 94.1 % (95.0-99.0); ABG PARTIAL PRESSURE CO2 45.1 mmHg (35.0-45.0); ABG PARTIAL PRESSURE O2 73.7 mmHg (75.0-100.0); ABG TOTAL CO2 26.5 MMOL/L (23.0-31.0); ABG pH (ARTERIAL) 7.363 UNITS (7.350-7.450)
[2023-03-05 02:30] LABS: AMYLASE < 20 U/L (30-118)
[2023-03-05] MEDS ORDERED: NOREPINEPHRINE 4MG IN D5 250ML 4 MG in IV 1 EA IV SCH ×2 (02:30)
[2023-03-05] MEDS ORDERED: CEFEPIME HCL 2 GM in D5W MINI-BAG PLUS 50 ML IV ONE (02:50)
[2023-03-05] MEDS ORDERED: VANCOMYCIN HCL 1,500 MG in IV FLUID PLACE HOLDER 1 EA IV ONE (02:50)
[2023-03-05] MEDS ORDERED: AZITHROMYCIN INJ 500 MG, VIAL MATE ADAPTER 1 EACH in NS 250 ML IV ONE (02:50)
[2023-03-05] MEDS ORDERED: NS 1,000 ML IV SCH (02:55)
[2023-03-05] MEDS ORDERED: ALBUTEROL SULFATE 2.5MG/0.5ML INH NEB SOLN NEB PRN (03:40)
[2023-03-05] MEDS: IPRATROPIUM 0.5MG/ALBUTEROL 2.5MG INH SOL UD 3ML (DUONEB) NEB SCH ×6 (04:00→23:05)
[2023-03-05] MEDS ORDERED: MIDAZOLAM 100MG/100ML-0.9%NACL 100 MG in IV 1 EA IV SCH ×2 (04:05→04:30)
[2023-03-05] MEDS ORDERED: GLUCOSE 4GM CHEW TABLET PO PRN (04:15)
[2023-03-05] MEDS ORDERED: GLUCAGON INJ 1MG VIAL SC PRN (04:15)
[2023-03-05 04:28] LABS: CK-MB VALUE MASS 1.2 NG/ML (<3.6)
[2023-03-05 04:30] LABS: MB/CK RELATIVE INDEX 1.62 (< OR =4)
[2023-03-05] MEDS ORDERED: FENTANYL DRIP LOCK BOX KEY 1 EACH XX PRN (04:30)
[2023-03-05] MEDS: NOREPINEPHRINE 4MG IN D5 250ML 4 MG in IV 1 EA IV SCH ×10 (04:35→22:30)
[2023-03-05] MEDS ORDERED: VANCOMYCIN HCL 750 MG, VIAL MATE ADAPTER 1 EACH in D5W 250 ML IV ONE ×8 (05:00→08:00)
[2023-03-05 05:06] LABS: ABG BASE EXCESS -5.5 (-2.0-2.0); ABG HCO3 23.8 MMOL/L (22.0-26.0); ABG O2 SATURATION 88.5 % (95.0-99.0); ABG PARTIAL PRESSURE O2 68.6 mmHg (75.0-100.0); ABG STANDARD HCO3 19.8 MMOL/L. (22.0-26.0); ABG TOTAL CO2 25.9 MMOL/L (23.0-31.0)
[2023-03-05 05:34] LABS: ABG pH (ARTERIAL) 7.179 UNITS (7.350-7.450)
[2023-03-05 05:35] LABS: ABG PARTIAL PRESSURE CO2 65.5 mmHg (35.0-45.0)
[2023-03-05] MEDS ORDERED: VANCOMYCIN HCL 1 MG in IV FLUID PLACE HOLDER 1 EA IV SCH (05:45)
[2023-03-05] MEDS ORDERED: HEPARIN SOD (PORCINE) 5000UNITS/ML 1ML VIAL/SYRINGE SC SCH (06:00)
[2023-03-05] MEDS: INSULIN LISPRO (NovoLOG) PER UNIT SC SCH ×3 (06:22→17:55)
[2023-03-05 06:28] LABS: CALCIUM LEVEL 6.7 MG/DL (8.3-10.6); CREATININE FOR GFR 2.11 MG/DL (0.70-1.30); GLOMERULAR FILTRATION RATE 33.8 (>49)
[2023-03-05 06:39] LABS: ABG BASE EXCESS -6.3 (-2.0-2.0); ABG HCO3 22.7 MMOL/L (22.0-26.0); ABG O2 SATURATION 97.5 % (95.0-99.0); ABG PARTIAL PRESSURE O2 114.2 mmHg (75.0-100.0); ABG STANDARD HCO3 19.3 MMOL/L. (22.0-26.0); ABG TOTAL CO2 24.6 MMOL/L (23.0-31.0)
[2023-03-05 06:42] LABS: ABG pH (ARTERIAL) 7.182 UNITS (7.350-7.450)
[2023-03-05] MEDS ORDERED: ETOMIDATE INJ 20MG/10ML VIAL ONE (06:55)
[2023-03-05] MEDS ORDERED: ROCURONIUM BROMIDE 50MG/5ML VIAL ONE (06:55)
[2023-03-05] MEDS ORDERED: ALBUTEROL SULFATE 2.5MG/0.5ML INH NEB SOLN NEB SCH (08:00)
[2023-03-05] MEDS ORDERED: SODIUM BICARBONATE 150 MEQ in STERILE WATER LITER BAG 1,000 ML IV SCH (08:00)
[2023-03-05] MEDS ORDERED: NS 500 ML IV ONE ×2 (08:10→08:27)
[2023-03-05] MEDS ORDERED: APIXABAN 5 MG TAB (ELIQUIS) PO SCH (09:00)
[2023-03-05] MEDS ORDERED: fentaNYL 100 MCG/2 ML INJECTION As Ordered ONE (09:28)
[2023-03-05] MEDS ORDERED: fentaNYL 100 MCG/2 ML INJECTION IV ONE (09:30)
[2023-03-05] MEDS ORDERED: OMEP-173 PO (09:41)
[2023-03-05] MEDS ORDERED: PARO30TA4 PO (09:41)
[2023-03-05] MEDS ORDERED: IRBE300T7 PO (09:41)
[2023-03-05] MEDS ORDERED: FURO40TA2 PO (09:41)
[2023-03-05] MEDS ORDERED: ALBU8.5H PO (09:41)
[2023-03-05] MEDS ORDERED: JARD1TAB PO (09:41)
[2023-03-05] MEDS ORDERED: BUPR-71 PO (09:41)
[2023-03-05] MEDS ORDERED: ELIQ5TAB PO (09:41)
[2023-03-05] MEDS ORDERED: NOVOINJ3 SC (09:41)
[2023-03-05] MEDS ORDERED: AMLO1TAB24 PO (09:41)
[2023-03-05] MEDS ORDERED: HOME MED LIST COMPLETE! XX SCH (09:45)
[2023-03-05] MEDS ORDERED: [UNRECOGNIZED DRUG - REMARK] (09:45)
[2023-03-05] MEDS: fentaNYL CITRATE/NaCl 1,000 MCG in IV 1 EA IV SCH ×2 (09:54→19:36)
[2023-03-05] MEDS ORDERED: methylPREDNISolone 125MG 2ML VIAL IV ONE (10:15)
[2023-03-05] MEDS: PANTOPRAZOLE 40MG VIAL IV SCH (11:23)
[2023-03-05] MEDS: CLOPIDOGREL 75 MG TAB NG SCH (11:23)
[2023-03-05] MEDS: CHLORHEXIDINE GLUCONATE 0.12 % 15ML UDC (PERIDEX ORAL RINSE) MT SCH ×2 (11:23→21:07)
[2023-03-05 11:24] LABS: ABG BASE EXCESS -3.4 (-2.0-2.0); ABG HCO3 22.7 MMOL/L (22.0-26.0); ABG O2 SATURATION 91.5 % (95.0-99.0); ABG PARTIAL PRESSURE CO2 45.3 mmHg (35.0-45.0); ABG PARTIAL PRESSURE O2 66.4 mmHg (75.0-100.0); ABG STANDARD HCO3 21.5 MMOL/L. (22.0-26.0); ABG TOTAL CO2 24.1 MMOL/L (23.0-31.0); ABG pH (ARTERIAL) 7.318 UNITS (7.350-7.450)
[2023-03-05] MEDS: NS 1,000 ML IV SCH ×2 (12:29→22:06)
[2023-03-05] MEDS ORDERED: LIDOCAINE 1% MDV 20ML VIAL As Ordered ONE ×2 (13:06→13:28)
[2023-03-05] MEDS: MIDAZOLAM 100MG/100ML-0.9%NACL 100 MG in IV 1 EA IV SCH ×2 (13:31→21:01)
[2023-03-05] MEDS ORDERED: LIDOCAINE 1% MDV 20ML VIAL XX ONE (13:45)
[2023-03-05] MEDS ORDERED: CEFEPIME HCL 1 GM in D5W MINI-BAG PLUS 50 ML IV SCH (16:00)
[2023-03-05] MEDS: CEFEPIME HCL 2 GM in D5W MINI-BAG PLUS 50 ML IV SCH (16:05)
[2023-03-05] MEDS: APIXABAN 5 MG TAB (ELIQUIS) PO SCH (17:55)
[2023-03-05] MEDS ORDERED: VANCOMYCIN HCL 1,000 MG, VIAL MATE ADAPTER 1 EACH in D5W 250 ML IV SCH (21:00)
[2023-03-06] VITALS (63 sets, daily range): BP systolic 104–135; BP diastolic 56–71; TEMP 97–100.4; O2SAT 88–97
[2023-03-06] MEDS: INSULIN LISPRO (NovoLOG) PER UNIT SC SCH ×4 (00:10→17:47)
[2023-03-06] MEDS: AZITHROMYCIN INJ 500 MG, VIAL MATE ADAPTER 1 EACH in NS 250 ML IV SCH (02:06)
[2023-03-06] MEDS: IPRATROPIUM 0.5MG/ALBUTEROL 2.5MG INH SOL UD 3ML (DUONEB) NEB SCH ×6 (03:07→23:47)
[2023-03-06] MEDS: CEFEPIME HCL 2 GM in D5W MINI-BAG PLUS 50 ML IV SCH ×2 (03:18→16:34)
[2023-03-06] MEDS: NOREPINEPHRINE 4MG IN D5 250ML 4 MG in IV 1 EA IV SCH ×4 (04:20→19:40)
[2023-03-06 04:33] LABS: HEMATOCRIT 32.9 % (42.0-52.0); HEMOGLOBIN 10.4 g/dl (13.5-17.5); MEAN CORPUSCULAR HEMOGLOBIN 27.7 pg (27.0-33.0); MEAN CORPUSCULAR HGB CONC 31.6 g/dl (32.0-36.5); MEAN CORPUSCULAR VOLUME 87.7 fl (80.0-96.0); PLATELET COUNT, AUTOMATED 220 10^3/uL (150-450); RED BLOOD COUNT 3.75 10^6/uL (4.30-6.10); WHITE BLOOD COUNT 8.5 10^3/uL (4.0-10.0)
[2023-03-06 05:01] LABS: CALCIUM LEVEL 6.6 MG/DL (8.3-10.6); CREATININE FOR GFR 1.76 MG/DL (0.70-1.30); GLOMERULAR FILTRATION RATE 41.7 (>49); POTASSIUM SERUM 4.2 MMOL/L (3.5-5.1)
[2023-03-06] MEDS: APIXABAN 5 MG TAB (ELIQUIS) PO SCH ×2 (05:52→18:23)
[2023-03-06 06:06] LABS: ABG HCO3 21.5 MMOL/L (22.0-26.0); ABG O2 SATURATION 97.9 % (95.0-99.0); ABG PARTIAL PRESSURE CO2 40.4 mmHg (35.0-45.0); ABG PARTIAL PRESSURE O2 106.2 mmHg (75.0-100.0); ABG STANDARD HCO3 21.2 MMOL/L. (22.0-26.0); ABG TOTAL CO2 22.7 MMOL/L (23.0-31.0); ABG pH (ARTERIAL) 7.343 UNITS (7.350-7.450)
[2023-03-06] MEDS: PANTOPRAZOLE 40MG VIAL IV SCH (07:39)
[2023-03-06] MEDS: CLOPIDOGREL 75 MG TAB NG SCH (07:39)
[2023-03-06] MEDS: CHLORHEXIDINE GLUCONATE 0.12 % 15ML UDC (PERIDEX ORAL RINSE) MT SCH ×2 (07:41→21:10)
[2023-03-06] MEDS: NS 1,000 ML IV SCH (07:41)
[2023-03-06] MEDS: fentaNYL CITRATE/NaCl 1,000 MCG in IV 1 EA IV SCH (10:46)
[2023-03-06] MEDS ORDERED: VANCOMYCIN HCL 1,000 MG, VIAL MATE ADAPTER 1 EACH in D5W 250 ML IV SCH (15:00)
[2023-03-06] MEDS: ACETAMINOPHEN TAB 650MG DOSE (2X325MG) NG PRN (15:35)
[2023-03-06] MEDS: MIDAZOLAM 100MG/100ML-0.9%NACL 100 MG in IV 1 EA IV SCH (20:18)
[2023-03-07] VITALS (33 sets, daily range): BP systolic 113–180; BP diastolic 55–82; TEMP 98.2–100.9; O2SAT 88–97
[2023-03-07] MEDS: INSULIN LISPRO (NovoLOG) PER UNIT SC SCH ×4 (00:05→17:34)
[2023-03-07] MEDS: NOREPINEPHRINE 4MG IN D5 250ML 4 MG in IV 1 EA IV SCH ×8 (02:07→21:04)
[2023-03-07] MEDS: AZITHROMYCIN INJ 500 MG, VIAL MATE ADAPTER 1 EACH in NS 250 ML IV SCH (02:07)
[2023-03-07] MEDS: CEFEPIME HCL 2 GM in D5W MINI-BAG PLUS 50 ML IV SCH (03:21)
[2023-03-07] MEDS: NS 1,000 ML IV SCH (03:23)
[2023-03-07] MEDS: IPRATROPIUM 0.5MG/ALBUTEROL 2.5MG INH SOL UD 3ML (DUONEB) NEB SCH ×6 (03:25→23:16)
[2023-03-07 04:46] LABS: HEMATOCRIT 28.9 % (42.0-52.0); HEMOGLOBIN 9.2 g/dl (13.5-17.5); MEAN CORPUSCULAR HEMOGLOBIN 27.6 pg (27.0-33.0); MEAN CORPUSCULAR HGB CONC 31.8 g/dl (32.0-36.5); MEAN CORPUSCULAR VOLUME 86.8 fl (80.0-96.0); PLATELET COUNT, AUTOMATED 191 10^3/uL (150-450); RED BLOOD COUNT 3.33 10^6/uL (4.30-6.10); WHITE BLOOD COUNT 10.5 10^3/uL (4.0-10.0)
[2023-03-07 05:12] LABS: CALCIUM LEVEL 7.2 MG/DL (8.3-10.6); CREATININE FOR GFR 1.51 MG/DL (0.70-1.30); GLOMERULAR FILTRATION RATE 49.8 (>49); MAGNESIUM LEVEL 2.8 MG/DL (1.8-2.4); POTASSIUM SERUM 3.9 MMOL/L (3.5-5.1)
[2023-03-07] MEDS: APIXABAN 5 MG TAB (ELIQUIS) PO SCH ×2 (05:26→17:34)
[2023-03-07 06:05] LABS: ABG BASE EXCESS -1.4 (-2.0-2.0); ABG HCO3 24.2 MMOL/L (22.0-26.0); ABG O2 SATURATION 98.4 % (95.0-99.0); ABG PARTIAL PRESSURE CO2 44.2 mmHg (35.0-45.0); ABG PARTIAL PRESSURE O2 128.4 mmHg (75.0-100.0); ABG STANDARD HCO3 23.3 MMOL/L. (22.0-26.0); ABG TOTAL CO2 25.5 MMOL/L (23.0-31.0); ABG pH (ARTERIAL) 7.356 UNITS (7.350-7.450)
[2023-03-07] MEDS: fentaNYL CITRATE/NaCl 1,000 MCG in IV 1 EA IV SCH (07:05)
[2023-03-07] MEDS: CLOPIDOGREL 75 MG TAB NG SCH (08:29)
[2023-03-07] MEDS: MEROPENEM INJ 1 GM in IV 1 EA IV SCH ×3 (08:29→23:51)
[2023-03-07] MEDS: PANTOPRAZOLE 40MG VIAL IV SCH (08:29)
[2023-03-07] MEDS: CHLORHEXIDINE GLUCONATE 0.12 % 15ML UDC (PERIDEX ORAL RINSE) MT SCH ×2 (10:02→20:40)
[2023-03-07] MEDS: VANCOMYCIN HCL 750 MG, VIAL MATE ADAPTER 1 EACH in D5W 250 ML IV SCH ×2 (10:03→11:37)
[2023-03-07] MEDS: LEVEMIR (INSULIN DETEMIR) 1 UNITS/0.01ML SC SCH (10:03)
[2023-03-07] MEDS ORDERED: POLYETHYLENE GLYCOL (MIRALAX) 238GM BOTTLE PO ONE (14:30)
[2023-03-07] MEDS ORDERED: MIRALAX *UNIT DOSE* 17GM PACKET PO ONE (14:40)
[2023-03-07] MEDS ORDERED: MIDAZOLAM INJ 2MG/2ML VIAL As Ordered ONE (15:57)
[2023-03-07] MEDS ORDERED: MIDAZOLAM INJ 2MG/2ML VIAL IV STA (15:59)
[2023-03-07] MEDS: DOCUSATE SOD LIQ 100MG/10ML UDC GT SCH (20:40)
[2023-03-08] VITALS (37 sets, daily range): BP systolic 126–182; BP diastolic 63–86; TEMP 98.1–102; O2SAT 5–100
[2023-03-08] MEDS: AZITHROMYCIN INJ 500 MG, VIAL MATE ADAPTER 1 EACH in NS 250 ML IV SCH (02:03)
[2023-03-08] MEDS: MIDAZOLAM 100MG/100ML-0.9%NACL 100 MG in IV 1 EA IV SCH (02:43)
[2023-03-08] MEDS: IPRATROPIUM 0.5MG/ALBUTEROL 2.5MG INH SOL UD 3ML (DUONEB) NEB SCH ×6 (03:01→23:39)
[2023-03-08 04:30] LABS: HEMATOCRIT 28.7 % (42.0-52.0); HEMOGLOBIN 9.2 g/dl (13.5-17.5); MEAN CORPUSCULAR HEMOGLOBIN 27.5 pg (27.0-33.0); MEAN CORPUSCULAR HGB CONC 32.1 g/dl (32.0-36.5); MEAN CORPUSCULAR VOLUME 85.9 fl (80.0-96.0); PLATELET COUNT, AUTOMATED 218 10^3/uL (150-450); RED BLOOD COUNT 3.34 10^6/uL (4.30-6.10); WHITE BLOOD COUNT 18.9 10^3/uL (4.0-10.0)
[2023-03-08] MEDS: NOREPINEPHRINE 4MG IN D5 250ML 4 MG in IV 1 EA IV SCH ×4 (04:39→10:45)
[2023-03-08 04:53] LABS: ALBUMIN 1.4 G/DL (3.2-5.2); ALKALINE PHOSPHATASE 133 U/L (46-116); ALT/SGPT 56 U/L (7.0-40); AST/SGOT 112 U/L (<34); BILIRUBIN,TOTAL 0.7 MG/DL (0.3-1.2); BLOOD UREA NITROGEN 78 MG/DL (9-23); CALCIUM LEVEL 7.7 MG/DL (8.3-10.6); CARBON DIOXIDE LEVEL 29 MMOL/L (20-31); CHLORIDE LEVEL 109 MMOL/L (98-107); CREATININE FOR GFR 1.13 MG/DL (0.70-1.30); GLOMERULAR FILTRATION RATE > 60.0 (>49); GLUCOSE, FASTING 344 MG/DL (74-106); MAGNESIUM LEVEL 2.9 MG/DL (1.8-2.4); POTASSIUM SERUM 4.3 MMOL/L (3.5-5.1); SODIUM LEVEL 144 MMOL/L (136-145); TOTAL PROTEIN 4.7 G/DL (5.7-8.2)
[2023-03-08 05:50] LABS: ABG BASE EXCESS 1.3 (-2.0-2.0); ABG O2 SATURATION 93.8 % (95.0-99.0); ABG PARTIAL PRESSURE CO2 41.9 mmHg (35.0-45.0); ABG STANDARD HCO3 25.5 MMOL/L. (22.0-26.0); ABG TOTAL CO2 27.3 MMOL/L (23.0-31.0); ABG pH (ARTERIAL) 7.411 UNITS (7.350-7.450)
[2023-03-08] MEDS: INSULIN LISPRO (NovoLOG) PER UNIT SC SCH ×5 (06:24→23:45)
[2023-03-08] MEDS: APIXABAN 5 MG TAB (ELIQUIS) PO SCH ×2 (06:24→18:10)
[2023-03-08] MEDS: MEROPENEM INJ 1 GM in IV 1 EA IV SCH ×3 (08:22→23:44)
[2023-03-08] MEDS: CHLORHEXIDINE GLUCONATE 0.12 % 15ML UDC (PERIDEX ORAL RINSE) MT SCH ×2 (08:22→20:27)
[2023-03-08] MEDS: PANTOPRAZOLE 40MG VIAL IV SCH (08:22)
[2023-03-08] MEDS: DOCUSATE SOD LIQ 100MG/10ML UDC GT SCH ×2 (08:22→20:27)
[2023-03-08] MEDS: LEVEMIR (INSULIN DETEMIR) 1 UNITS/0.01ML SC SCH ×2 (08:22→20:27)
[2023-03-08] MEDS: CLOPIDOGREL 75 MG TAB NG SCH (08:22)
[2023-03-08] MEDS: VANCOMYCIN HCL 750 MG, VIAL MATE ADAPTER 1 EACH in D5W 250 ML IV SCH ×2 (10:49→12:31)
[2023-03-08] MEDS: MIDAZOLAM INJ 2MG/2ML VIAL IV PRN ×2 (12:32→18:10)
[2023-03-08] MEDS: ACETAMINOPHEN TAB 650MG DOSE (2X325MG) NG PRN ×2 (12:44→20:27)
[2023-03-08] MEDS ORDERED: LACTULOSE 20GM/30ML SYRUP UDC PO ONE (15:30)
[2023-03-08] MEDS ORDERED: VANCOMYCIN HCL 1,000 MG, VIAL MATE ADAPTER 1 EACH in D5W 250 ML IV SCH (22:00)
[2023-03-09] VITALS (32 sets, daily range): BP systolic 112–190; BP diastolic 55–123; TEMP 97.9–103.6; O2SAT 89–100
[2023-03-09] MEDS: fentaNYL CITRATE/NaCl 1,000 MCG in IV 1 EA IV SCH (02:11)
[2023-03-09] MEDS: MIDAZOLAM 100MG/100ML-0.9%NACL 100 MG in IV 1 EA IV SCH (03:32)
[2023-03-09] MEDS: IPRATROPIUM 0.5MG/ALBUTEROL 2.5MG INH SOL UD 3ML (DUONEB) NEB SCH ×6 (03:33→23:02)
[2023-03-09] MEDS: MIDAZOLAM INJ 2MG/2ML VIAL IV PRN ×7 (04:23→23:17)
[2023-03-09 04:44] LABS: HEMATOCRIT 31.4 % (42.0-52.0); HEMOGLOBIN 9.8 g/dl (13.5-17.5); MEAN CORPUSCULAR HEMOGLOBIN 27.1 pg (27.0-33.0); MEAN CORPUSCULAR HGB CONC 31.2 g/dl (32.0-36.5); PLATELET COUNT, AUTOMATED 251 10^3/uL (150-450); RED BLOOD COUNT 3.61 10^6/uL (4.30-6.10); WHITE BLOOD COUNT 24.4 10^3/uL (4.0-10.0)
[2023-03-09 05:11] LABS: ALBUMIN 1.6 G/DL (3.2-5.2); ALKALINE PHOSPHATASE 180 U/L (46-116); ALT/SGPT 83 U/L (7.0-40); AST/SGOT 130 U/L (<34); BILIRUBIN,TOTAL 0.7 MG/DL (0.3-1.2); BLOOD UREA NITROGEN 60 MG/DL (9-23); CALCIUM LEVEL 7.9 MG/DL (8.3-10.6); CARBON DIOXIDE LEVEL 30 MMOL/L (20-31); CHLORIDE LEVEL 114 MMOL/L (98-107); CREATININE FOR GFR 0.88 MG/DL (0.70-1.30); GLOMERULAR FILTRATION RATE > 60.0 (>49); GLUCOSE, FASTING 336 MG/DL (74-106); MAGNESIUM LEVEL 2.6 MG/DL (1.8-2.4); POTASSIUM SERUM 4.2 MMOL/L (3.5-5.1); SODIUM LEVEL 152 MMOL/L (136-145)
[2023-03-09 05:41] LABS: ABG HCO3 27.6 MMOL/L (22.0-26.0); ABG O2 SATURATION 94.7 % (95.0-99.0); ABG PARTIAL PRESSURE CO2 42.8 mmHg (35.0-45.0); ABG PARTIAL PRESSURE O2 74.9 mmHg (75.0-100.0); ABG STANDARD HCO3 27.1 MMOL/L. (22.0-26.0); ABG pH (ARTERIAL) 7.428 UNITS (7.350-7.450)
[2023-03-09] MEDS: APIXABAN 5 MG TAB (ELIQUIS) PO SCH ×2 (05:42→17:21)
[2023-03-09] MEDS: INSULIN LISPRO (NovoLOG) PER UNIT SC SCH ×3 (05:43→17:21)
[2023-03-09] MEDS: D5W 1,000 ML IV SCH ×2 (06:13→17:23)
[2023-03-09] MEDS ORDERED: hydrALAZINE 20MG/ML 1ML VIAL IV ONE ×2 (08:45→09:50)
[2023-03-09] MEDS: PANTOPRAZOLE 40MG VIAL IV SCH (09:15)
[2023-03-09] MEDS: DOCUSATE SOD LIQ 100MG/10ML UDC GT SCH ×2 (09:16→20:10)
[2023-03-09] MEDS: CLOPIDOGREL 75 MG TAB NG SCH (09:18)
[2023-03-09] MEDS: LEVEMIR (INSULIN DETEMIR) 1 UNITS/0.01ML SC SCH ×2 (09:18→20:10)
[2023-03-09] MEDS: MEROPENEM INJ 1 GM in IV 1 EA IV SCH (09:20)
[2023-03-09] MEDS: CHLORHEXIDINE GLUCONATE 0.12 % 15ML UDC (PERIDEX ORAL RINSE) MT SCH ×2 (09:20→20:10)
[2023-03-09] MEDS ORDERED: LEVEMIR (INSULIN DETEMIR) 1 UNITS/0.01ML SC ONE (12:45)
[2023-03-09 16:08] LABS: BODY FLUID CULTURE Not indicated. (.); LEGIONELLA ANTIGEN URINE Negative (Negative); ORGANISM ID Not indicated. (.); SPECIMEN SOURCE Urine (.); URINE STREP PNEUMONIAE ANTIGEN Negative (Negative)
[2023-03-09] MEDS: ACETAMINOPHEN TAB 650MG DOSE (2X325MG) NG PRN (17:22)
[2023-03-09] MEDS: AMPICILLIN SOD/SULBACTAM SOD 3 GM in D5W MINI-BAG PLUS 100 ML IV SCH ×2 (17:22→22:07)
[2023-03-09 17:25] LABS: BLOOD UREA NITROGEN 52 MG/DL (9-23); CALCIUM LEVEL 8.5 MG/DL (8.3-10.6); CARBON DIOXIDE LEVEL 30 MMOL/L (20-31); CHLORIDE LEVEL 115 MMOL/L (98-107); CREATININE FOR GFR 0.88 MG/DL (0.70-1.30); GLOMERULAR FILTRATION RATE > 60.0 (>49); GLUCOSE, FASTING 369 MG/DL (74-106); POTASSIUM SERUM 4.2 MMOL/L (3.5-5.1); SODIUM LEVEL 153 MMOL/L (136-145)
[2023-03-10] VITALS (30 sets, daily range): BP systolic 99–152; BP diastolic 54–79; TEMP 97.3–100.4; O2SAT 88–100
[2023-03-10] MEDS: INSULIN LISPRO (NovoLOG) PER UNIT SC SCH ×5 (00:24→23:41)
[2023-03-10] MEDS: D5W 1,000 ML IV SCH ×3 (00:30→09:17)
[2023-03-10] MEDS: MIDAZOLAM INJ 2MG/2ML VIAL IV PRN ×4 (00:49→23:31)
[2023-03-10] MEDS: MIDAZOLAM 100MG/100ML-0.9%NACL 100 MG in IV 1 EA IV SCH (02:26)
[2023-03-10] MEDS: fentaNYL CITRATE/NaCl 1,000 MCG in IV 1 EA IV SCH (02:26)
[2023-03-10] MEDS: IPRATROPIUM 0.5MG/ALBUTEROL 2.5MG INH SOL UD 3ML (DUONEB) NEB SCH ×6 (03:08→23:09)
[2023-03-10] MEDS: AMPICILLIN SOD/SULBACTAM SOD 3 GM in D5W MINI-BAG PLUS 100 ML IV SCH ×4 (04:37→23:03)
[2023-03-10 05:01] LABS: HEMATOCRIT 30.8 % (42.0-52.0); HEMOGLOBIN 9.6 g/dl (13.5-17.5); MEAN CORPUSCULAR HEMOGLOBIN 27.5 pg (27.0-33.0); MEAN CORPUSCULAR HGB CONC 31.2 g/dl (32.0-36.5); MEAN CORPUSCULAR VOLUME 88.3 fl (80.0-96.0); PLATELET COUNT, AUTOMATED 230 10^3/uL (150-450); RED BLOOD COUNT 3.49 10^6/uL (4.30-6.10); WHITE BLOOD COUNT 17.6 10^3/uL (4.0-10.0)
[2023-03-10] MEDS: APIXABAN 5 MG TAB (ELIQUIS) PO SCH ×2 (05:34→17:12)
[2023-03-10 05:36] LABS: BLOOD UREA NITROGEN 53 MG/DL (9-23); CALCIUM LEVEL 8.1 MG/DL (8.3-10.6); CARBON DIOXIDE LEVEL 32 MMOL/L (20-31); CHLORIDE LEVEL 115 MMOL/L (98-107); CREATININE FOR GFR 0.77 MG/DL (0.70-1.30); GLOMERULAR FILTRATION RATE > 60.0 (>49); GLUCOSE, FASTING 408 MG/DL (74-106); POTASSIUM SERUM 3.9 MMOL/L (3.5-5.1); SODIUM LEVEL 154 MMOL/L (136-145)
[2023-03-10 05:45] LABS: ABG BASE EXCESS 5.4 (-2.0-2.0); ABG HCO3 30.5 MMOL/L (22.0-26.0); ABG O2 SATURATION 93.2 % (95.0-99.0); ABG PARTIAL PRESSURE CO2 47.6 mmHg (35.0-45.0); ABG PARTIAL PRESSURE O2 68.9 mmHg (75.0-100.0); ABG STANDARD HCO3 29.2 MMOL/L. (22.0-26.0); ABG pH (ARTERIAL) 7.425 UNITS (7.350-7.450)
[2023-03-10] MEDS: PANTOPRAZOLE 40MG VIAL IV SCH (08:16)
[2023-03-10] MEDS: CHLORHEXIDINE GLUCONATE 0.12 % 15ML UDC (PERIDEX ORAL RINSE) MT SCH ×2 (08:16→20:51)
[2023-03-10] MEDS: LEVEMIR (INSULIN DETEMIR) 1 UNITS/0.01ML SC SCH ×2 (08:18→20:51)
[2023-03-10] MEDS: CLOPIDOGREL 75 MG TAB NG SCH (08:18)
[2023-03-10] MEDS: DOCUSATE SOD LIQ 100MG/10ML UDC GT SCH ×2 (11:48→20:51)
[2023-03-10] MEDS: SODIUM CHLORIDE 23.4% INJ 40.8 MEQ in STERILE WATER LITER BAG 1,050 ML IV SCH ×2 (13:06→20:40)
[2023-03-10] MEDS: ACETAMINOPHEN TAB 650MG DOSE (2X325MG) NG PRN (23:41)
[2023-03-11] VITALS (28 sets, daily range): BP systolic 94–180; BP diastolic 51–85; TEMP 98.2–100; O2SAT 89–100
[2023-03-11] MEDS: fentaNYL CITRATE/NaCl 1,000 MCG in IV 1 EA IV SCH (02:23)
[2023-03-11] MEDS: MIDAZOLAM 100MG/100ML-0.9%NACL 100 MG in IV 1 EA IV SCH (02:24)
[2023-03-11] MEDS: IPRATROPIUM 0.5MG/ALBUTEROL 2.5MG INH SOL UD 3ML (DUONEB) NEB SCH ×6 (03:37→23:23)
[2023-03-11] MEDS: SODIUM CHLORIDE 23.4% INJ 40.8 MEQ in STERILE WATER LITER BAG 1,050 ML IV SCH ×3 (04:18→20:01)
[2023-03-11] MEDS: AMPICILLIN SOD/SULBACTAM SOD 3 GM in D5W MINI-BAG PLUS 100 ML IV SCH ×4 (04:36→22:17)
[2023-03-11 04:44] LABS: HEMATOCRIT 27.9 % (42.0-52.0); HEMOGLOBIN 8.8 g/dl (13.5-17.5); MEAN CORPUSCULAR HEMOGLOBIN 27.9 pg (27.0-33.0); MEAN CORPUSCULAR HGB CONC 31.5 g/dl (32.0-36.5); MEAN CORPUSCULAR VOLUME 88.6 fl (80.0-96.0); PLATELET COUNT, AUTOMATED 225 10^3/uL (150-450); RED BLOOD COUNT 3.15 10^6/uL (4.30-6.10); WHITE BLOOD COUNT 12.9 10^3/uL (4.0-10.0)
[2023-03-11 05:13] LABS: ALBUMIN 1.4 G/DL (3.2-5.2); ALKALINE PHOSPHATASE 121 U/L (46-116); ALT/SGPT 40 U/L (7.0-40); AST/SGOT 38 U/L (<34); BILIRUBIN,TOTAL 0.5 MG/DL (0.3-1.2); BLOOD UREA NITROGEN 51 MG/DL (9-23); CALCIUM LEVEL 7.1 MG/DL (8.3-10.6); CARBON DIOXIDE LEVEL 33 MMOL/L (20-31); CHLORIDE LEVEL 117 MMOL/L (98-107); CREATININE FOR GFR 0.87 MG/DL (0.70-1.30); GLOMERULAR FILTRATION RATE > 60.0 (>49); GLUCOSE, FASTING 311 MG/DL (74-106); MAGNESIUM LEVEL 2.1 MG/DL (1.8-2.4); POTASSIUM SERUM 4.3 MMOL/L (3.5-5.1); SODIUM LEVEL 154 MMOL/L (136-145); TOTAL PROTEIN 4.5 G/DL (5.7-8.2)
[2023-03-11] MEDS: APIXABAN 5 MG TAB (ELIQUIS) PO SCH ×2 (05:42→18:13)
[2023-03-11] MEDS: INSULIN LISPRO (NovoLOG) PER UNIT SC SCH (05:44)
[2023-03-11 06:24] LABS: ABG BASE EXCESS 6.5 (-2.0-2.0); ABG HCO3 31.4 MMOL/L (22.0-26.0); ABG O2 SATURATION 97.6 % (95.0-99.0); ABG PARTIAL PRESSURE CO2 46.8 mmHg (35.0-45.0); ABG PARTIAL PRESSURE O2 108.7 mmHg (75.0-100.0); ABG STANDARD HCO3 30.4 MMOL/L. (22.0-26.0); ABG TOTAL CO2 32.8 MMOL/L (23.0-31.0); ABG pH (ARTERIAL) 7.444 UNITS (7.350-7.450)
[2023-03-11] MEDS: DOCUSATE SOD LIQ 100MG/10ML UDC GT SCH ×2 (09:02→20:17)
[2023-03-11] MEDS: CHLORHEXIDINE GLUCONATE 0.12 % 15ML UDC (PERIDEX ORAL RINSE) MT SCH ×2 (09:02→20:17)
[2023-03-11] MEDS: CLOPIDOGREL 75 MG TAB NG SCH (09:02)
[2023-03-11] MEDS: LEVEMIR (INSULIN DETEMIR) 1 UNITS/0.01ML SC SCH (09:04)
[2023-03-11] MEDS: PANTOPRAZOLE 40MG VIAL IV SCH (09:05)
[2023-03-11] MEDS: INSULIN REGULAR IN 0.9 % NACL 100 UNIT in IV 1 EA IV SCH ×4 (11:47→23:07)
[2023-03-11] MEDS: SODIUM CHLORIDE HYPERTONIC 3% 15ML NEB SOL INH SCH ×3 (11:54→23:25)
[2023-03-11] MEDS: MIDAZOLAM INJ 2MG/2ML VIAL IV PRN ×4 (12:33→23:54)
[2023-03-11] MEDS: dexmedeTOMidine 200 MCG in IV 1 EA IV SCH ×4 (12:56→23:06)
[2023-03-11] MEDS: INSULIN IV RATE CHANGE DOCUMENTATION ML/HR XX SCH ×6 (13:02→18:08)
[2023-03-11 18:01] LABS: BLOOD UREA NITROGEN 43 MG/DL (9-23); CALCIUM LEVEL 7.1 MG/DL (8.3-10.6); CARBON DIOXIDE LEVEL 33 MMOL/L (20-31); CHLORIDE LEVEL 115 MMOL/L (98-107); CREATININE FOR GFR 0.82 MG/DL (0.70-1.30); GLOMERULAR FILTRATION RATE > 60.0 (>49); GLUCOSE, FASTING 168 MG/DL (74-106); POTASSIUM SERUM 3.6 MMOL/L (3.5-5.1); SODIUM LEVEL 154 MMOL/L (136-145)
[2023-03-12] VITALS (27 sets, daily range): BP systolic 98–134; BP diastolic 54–67; TEMP 98.4–101.2; O2SAT 88–98
[2023-03-12] MEDS: INSULIN REGULAR IN 0.9 % NACL 100 UNIT in IV 1 EA IV SCH ×12 (01:03→22:15)
[2023-03-12] MEDS: MIDAZOLAM 100MG/100ML-0.9%NACL 100 MG in IV 1 EA IV SCH (01:06)
[2023-03-12] MEDS: dexmedeTOMidine 200 MCG in IV 1 EA IV SCH ×6 (01:32→17:09)
[2023-03-12] MEDS: MIDAZOLAM INJ 2MG/2ML VIAL IV PRN ×6 (02:09→22:16)
[2023-03-12] MEDS: SODIUM CHLORIDE 23.4% INJ 40.8 MEQ in STERILE WATER LITER BAG 1,050 ML IV SCH ×3 (03:05→13:41)
[2023-03-12] MEDS: ACETAMINOPHEN TAB 650MG DOSE (2X325MG) NG PRN ×3 (03:06→22:10)
[2023-03-12] MEDS: IPRATROPIUM 0.5MG/ALBUTEROL 2.5MG INH SOL UD 3ML (DUONEB) NEB SCH ×6 (03:23→23:07)
[2023-03-12] MEDS: fentaNYL CITRATE/NaCl 1,000 MCG in IV 1 EA IV SCH (05:04)
[2023-03-12] MEDS: AMPICILLIN SOD/SULBACTAM SOD 3 GM in D5W MINI-BAG PLUS 100 ML IV SCH ×4 (05:09→22:10)
[2023-03-12] MEDS: APIXABAN 5 MG TAB (ELIQUIS) PO SCH ×2 (05:12→17:11)
[2023-03-12 05:15] LABS: HEMATOCRIT 24.9 % (42.0-52.0); HEMOGLOBIN 7.9 g/dl (13.5-17.5); MEAN CORPUSCULAR HEMOGLOBIN 27.8 pg (27.0-33.0); MEAN CORPUSCULAR HGB CONC 31.7 g/dl (32.0-36.5); MEAN CORPUSCULAR VOLUME 87.7 fl (80.0-96.0); PLATELET COUNT, AUTOMATED 223 10^3/uL (150-450); RED BLOOD COUNT 2.84 10^6/uL (4.30-6.10); WHITE BLOOD COUNT 10.5 10^3/uL (4.0-10.0)
[2023-03-12 05:34] LABS: BLOOD UREA NITROGEN 50 MG/DL (9-23); CALCIUM LEVEL 6.6 MG/DL (8.3-10.6); CARBON DIOXIDE LEVEL 33 MMOL/L (20-31); CHLORIDE LEVEL 112 MMOL/L (98-107); CREATININE FOR GFR 0.94 MG/DL (0.70-1.30); GLOMERULAR FILTRATION RATE > 60.0 (>49); GLUCOSE, FASTING 168 MG/DL (74-106); POTASSIUM SERUM 3.9 MMOL/L (3.5-5.1); SODIUM LEVEL 149 MMOL/L (136-145)
[2023-03-12 06:30] LABS: ABG HCO3 30.1 MMOL/L (22.0-26.0); ABG O2 SATURATION 97.8 % (95.0-99.0); ABG PARTIAL PRESSURE CO2 41.5 mmHg (35.0-45.0); ABG PARTIAL PRESSURE O2 110.3 mmHg (75.0-100.0); ABG STANDARD HCO3 29.9 MMOL/L. (22.0-26.0); ABG TOTAL CO2 31.3 MMOL/L (23.0-31.0); ABG pH (ARTERIAL) 7.478 UNITS (7.350-7.450)
[2023-03-12] MEDS: SODIUM CHLORIDE HYPERTONIC 3% 15ML NEB SOL INH SCH ×3 (07:15→23:07)
[2023-03-12] MEDS ORDERED: MIRALAX *UNIT DOSE* 17GM PACKET PO SCH (09:00)
[2023-03-12] MEDS: INSULIN IV RATE CHANGE DOCUMENTATION ML/HR XX SCH ×7 (09:11→23:16)
[2023-03-12] MEDS: PANTOPRAZOLE 40MG VIAL IV SCH (09:35)
[2023-03-12] MEDS: CLOPIDOGREL 75 MG TAB NG SCH (09:35)
[2023-03-12] MEDS: DOCUSATE SOD LIQ 100MG/10ML UDC GT SCH ×2 (09:35→21:04)
[2023-03-12] MEDS: CHLORHEXIDINE GLUCONATE 0.12 % 15ML UDC (PERIDEX ORAL RINSE) MT SCH ×2 (09:36→21:04)
[2023-03-12] MEDS ORDERED: fentaNYL 100 MCG/2 ML INJECTION IV ONE (14:50)
[2023-03-12] MEDS: fentaNYL 100 MCG/2 ML INJECTION IV PRN ×2 (21:17→22:53)
[2023-03-13] VITALS (28 sets, daily range): BP systolic 93–139; BP diastolic 53–66; TEMP 99.8–102.7; O2SAT 87–97
[2023-03-13] MEDS: SODIUM CHLORIDE 23.4% INJ 40.8 MEQ in STERILE WATER LITER BAG 1,050 ML IV SCH ×2 (00:18→00:53)
[2023-03-13] MEDS: MIDAZOLAM INJ 2MG/2ML VIAL IV PRN ×5 (00:53→23:55)
[2023-03-13] MEDS: MIDAZOLAM 100MG/100ML-0.9%NACL 100 MG in IV 1 EA IV SCH ×2 (02:00→14:13)
[2023-03-13] MEDS: INSULIN IV RATE CHANGE DOCUMENTATION ML/HR XX SCH ×8 (02:12→19:26)
[2023-03-13] MEDS: fentaNYL 100 MCG/2 ML INJECTION IV PRN ×3 (03:29→12:35)
[2023-03-13] MEDS: IPRATROPIUM 0.5MG/ALBUTEROL 2.5MG INH SOL UD 3ML (DUONEB) NEB SCH ×6 (03:36→23:20)
[2023-03-13] MEDS: AMPICILLIN SOD/SULBACTAM SOD 3 GM in D5W MINI-BAG PLUS 100 ML IV SCH ×2 (05:08→11:36)
[2023-03-13] MEDS: APIXABAN 5 MG TAB (ELIQUIS) PO SCH ×2 (05:10→18:37)
[2023-03-13 05:36] LABS: BASO % 0.1 % (0.0-1.0); EOS # 0.2 10^3/uL (0.0-0.5); EOS % 1.3 % (0.0-3.0); HEMATOCRIT 24.5 % (42.0-52.0); HEMOGLOBIN 7.8 g/dl (13.5-17.5); LYMPH # 0.7 10^3/uL (1.5-5.0); MEAN CORPUSCULAR HEMOGLOBIN 27.9 pg (27.0-33.0); MEAN CORPUSCULAR HGB CONC 31.8 g/dl (32.0-36.5); MEAN CORPUSCULAR VOLUME 87.5 fl (80.0-96.0); MONO # 0.3 10^3/uL (0.0-0.8); MONO % 2.5 % (2.0-8.0); NEUTROPHILS # 10.7 10^3/uL (1.5-8.5); NEUTROPHILS % 88.9 % (36.0-66.0); PLATELET COUNT, AUTOMATED 261 10^3/uL (150-450); WHITE BLOOD COUNT 12.1 10^3/uL (4.0-10.0)
[2023-03-13 06:00] LABS: ABG BASE EXCESS 4.8 (-2.0-2.0); ABG HCO3 28.6 MMOL/L (22.0-26.0); ABG O2 SATURATION 98.1 % (95.0-99.0); ABG PARTIAL PRESSURE CO2 38.6 mmHg (35.0-45.0); ABG PARTIAL PRESSURE O2 111.3 mmHg (75.0-100.0); ABG STANDARD HCO3 28.8 MMOL/L. (22.0-26.0); ABG TOTAL CO2 29.7 MMOL/L (23.0-31.0); ABG pH (ARTERIAL) 7.487 UNITS (7.350-7.450)
[2023-03-13 06:01] LABS: BLOOD UREA NITROGEN 44 MG/DL (9-23); CALCIUM LEVEL 7.2 MG/DL (8.3-10.6); CARBON DIOXIDE LEVEL 30 MMOL/L (20-31); CHLORIDE LEVEL 106 MMOL/L (98-107); CREATININE FOR GFR 0.85 MG/DL (0.70-1.30); GLOMERULAR FILTRATION RATE > 60.0 (>49); GLUCOSE, FASTING 195 MG/DL (74-106); POTASSIUM SERUM 4.2 MMOL/L (3.5-5.1); SODIUM LEVEL 142 MMOL/L (136-145)
[2023-03-13] MEDS: SODIUM CHLORIDE HYPERTONIC 3% 15ML NEB SOL INH SCH (07:44)
[2023-03-13] MEDS: CHLORHEXIDINE GLUCONATE 0.12 % 15ML UDC (PERIDEX ORAL RINSE) MT SCH ×2 (09:57→20:17)
[2023-03-13] MEDS: dexmedeTOMidine 200 MCG in IV 1 EA IV SCH ×4 (09:57→22:38)
[2023-03-13] MEDS: CLOPIDOGREL 75 MG TAB NG SCH (09:57)
[2023-03-13] MEDS: PANTOPRAZOLE 40MG VIAL IV SCH (09:57)
[2023-03-13] MEDS: DOCUSATE SOD LIQ 100MG/10ML UDC GT SCH ×2 (09:57→20:07)
[2023-03-13] MEDS: ACETAMINOPHEN TAB 650MG DOSE (2X325MG) NG PRN (11:35)
[2023-03-13] MEDS ORDERED: FUROSEMIDE 100MG/10ML VIAL IV ONE (12:20)
[2023-03-13] MEDS ORDERED: PIPERACILLIN/TAZOBACTAM SOD 4.5 GM in D5W MINI-BAG PLUS 50 ML IV SCH (14:00)
[2023-03-13] MEDS: fentaNYL CITRATE/NaCl 1,000 MCG in IV 1 EA IV SCH (15:17)
[2023-03-13] MEDS: PIPERACILLIN/TAZOBACTAM SOD 4.5 GM in D5W MINI-BAG PLUS 50 ML IV SCH ×2 (15:29→20:07)
[2023-03-13] MEDS: INSULIN REGULAR IN 0.9 % NACL 100 UNIT in IV 1 EA IV SCH ×2 (18:36)
[2023-03-13] MEDS: ACETAMINOPHEN 325MG/10.15ML UDC GT PRN (20:07)
[2023-03-13] MEDS ORDERED: ACETAMINOPHEN 1000MG 100ML IV BAG IV ONE (23:50)
[2023-03-14] VITALS (29 sets, daily range): BP systolic 94–143; BP diastolic 50–72; TEMP 97.3–102.2; O2SAT 85–99
[2023-03-14] MEDS: dexmedeTOMidine 200 MCG in IV 1 EA IV SCH ×2 (01:43→05:47)
[2023-03-14] MEDS: PIPERACILLIN/TAZOBACTAM SOD 4.5 GM in D5W MINI-BAG PLUS 50 ML IV SCH ×4 (01:43→20:01)
[2023-03-14] MEDS: MIDAZOLAM 100MG/100ML-0.9%NACL 100 MG in IV 1 EA IV SCH ×2 (02:32→18:57)
[2023-03-14] MEDS: IPRATROPIUM 0.5MG/ALBUTEROL 2.5MG INH SOL UD 3ML (DUONEB) NEB SCH ×6 (03:04→23:42)
[2023-03-14] MEDS: MIDAZOLAM INJ 2MG/2ML VIAL IV PRN ×5 (04:21→23:26)
[2023-03-14] MEDS: fentaNYL CITRATE/NaCl 1,000 MCG in IV 1 EA IV SCH ×3 (04:30→11:56)
[2023-03-14 04:35] LABS: BASO % 0.1 % (0.0-1.0); EOS # 0.1 10^3/uL (0.0-0.5); EOS % 1.2 % (0.0-3.0); HEMATOCRIT 22.5 % (42.0-52.0); HEMOGLOBIN 7.1 g/dl (13.5-17.5); LYMPH # 0.6 10^3/uL (1.5-5.0); LYMPH % 8.2 % (24.0-44.0); MEAN CORPUSCULAR HEMOGLOBIN 27.6 pg (27.0-33.0); MEAN CORPUSCULAR HGB CONC 31.6 g/dl (32.0-36.5); MEAN CORPUSCULAR VOLUME 87.5 fl (80.0-96.0); MONO # 0.3 10^3/uL (0.0-0.8); MONO % 3.9 % (2.0-8.0); NEUTROPHILS # 6.4 10^3/uL (1.5-8.5); NEUTROPHILS % 85.5 % (36.0-66.0); PLATELET COUNT, AUTOMATED 227 10^3/uL (150-450); RED BLOOD COUNT 2.57 10^6/uL (4.30-6.10); WHITE BLOOD COUNT 7.4 10^3/uL (4.0-10.0)
[2023-03-14 04:58] LABS: ALBUMIN 1.3 G/DL (3.2-5.2); ALKALINE PHOSPHATASE 135 U/L (46-116); ALT/SGPT 36 U/L (7.0-40); AST/SGOT 40 U/L (<34); BILIRUBIN,TOTAL 0.6 MG/DL (0.3-1.2); BLOOD UREA NITROGEN 45 MG/DL (9-23); CALCIUM LEVEL 6.6 MG/DL (8.3-10.6); CARBON DIOXIDE LEVEL 29 MMOL/L (20-31); CHLORIDE LEVEL 105 MMOL/L (98-107); CREATININE FOR GFR 1.01 MG/DL (0.70-1.30); GLOMERULAR FILTRATION RATE > 60.0 (>49); GLUCOSE, FASTING 334 MG/DL (74-106); SODIUM LEVEL 140 MMOL/L (136-145); TOTAL PROTEIN 4.6 G/DL (5.7-8.2)
[2023-03-14] MEDS: INSULIN LISPRO (NovoLOG) PER UNIT SC SCH ×4 (05:40→23:35)
[2023-03-14] MEDS: APIXABAN 5 MG TAB (ELIQUIS) PO SCH ×2 (05:41→17:45)
[2023-03-14 05:51] LABS: ABG BASE EXCESS 4.5 (-2.0-2.0); ABG HCO3 28.9 MMOL/L (22.0-26.0); ABG O2 SATURATION 97.4 % (95.0-99.0); ABG PARTIAL PRESSURE CO2 42.9 mmHg (35.0-45.0); ABG STANDARD HCO3 28.5 MMOL/L. (22.0-26.0); ABG TOTAL CO2 30.3 MMOL/L (23.0-31.0); ABG pH (ARTERIAL) 7.447 UNITS (7.350-7.450)
[2023-03-14] MEDS ORDERED: FUROSEMIDE 100MG/10ML VIAL IV ONE (09:00)
[2023-03-14] MEDS: DOCUSATE SOD LIQ 100MG/10ML UDC GT SCH ×2 (09:33→20:01)
[2023-03-14] MEDS: CHLORHEXIDINE GLUCONATE 0.12 % 15ML UDC (PERIDEX ORAL RINSE) MT SCH ×2 (09:33→20:03)
[2023-03-14] MEDS: PANTOPRAZOLE 40MG VIAL IV SCH (09:34)
[2023-03-14] MEDS: CLOPIDOGREL 75 MG TAB NG SCH (09:34)
[2023-03-14] MEDS: LEVEMIR (INSULIN DETEMIR) 1 UNITS/0.01ML SC SCH ×2 (09:35→20:01)
[2023-03-14] MEDS: HYDROCORTISONE 100MG/2ML VIAL IV SCH ×3 (09:49→21:11)
[2023-03-14 10:32] LABS: HEMATOCRIT 25.6 % (42.0-52.0); HEMOGLOBIN 7.8 g/dl (13.5-17.5)
[2023-03-14] MEDS: ACETAMINOPHEN 325MG/10.15ML UDC GT PRN (12:54)
[2023-03-14] MEDS ORDERED: KETOROLAC 30 MG/ML 1ML VIAL IV ONE (15:15)
[2023-03-14] MEDS ORDERED: SODIUM CHLORIDE 0.9% INJ 10 ML SYR IV PRN (18:25)
[2023-03-14] MEDS: fentaNYL 100 MCG/2 ML INJECTION IV PRN (20:53)
[2023-03-14] MEDS: SODIUM CHLORIDE 0.9% INJ 10 ML SYR IV SCH (21:11)
[2023-03-15] VITALS (31 sets, daily range): BP systolic 102–143; BP diastolic 53–90; TEMP 97–99.1; O2SAT 88–99
[2023-03-15] MEDS: fentaNYL 100 MCG/2 ML INJECTION IV PRN ×6 (01:30→22:15)
[2023-03-15] MEDS: PIPERACILLIN/TAZOBACTAM SOD 4.5 GM in D5W MINI-BAG PLUS 50 ML IV SCH ×4 (01:39→20:17)
[2023-03-15] MEDS: MIDAZOLAM INJ 2MG/2ML VIAL IV PRN ×5 (02:37→22:14)
[2023-03-15] MEDS: IPRATROPIUM 0.5MG/ALBUTEROL 2.5MG INH SOL UD 3ML (DUONEB) NEB SCH ×6 (03:46→23:43)
[2023-03-15 04:32] LABS: BASO % 0.1 % (0.0-1.0); EOS % 0.1 % (0.0-3.0); HEMATOCRIT 23.3 % (42.0-52.0); HEMOGLOBIN 7.3 g/dl (13.5-17.5); LYMPH # 0.4 10^3/uL (1.5-5.0); LYMPH % 5.6 % (24.0-44.0); MEAN CORPUSCULAR HEMOGLOBIN 27.4 pg (27.0-33.0); MEAN CORPUSCULAR HGB CONC 31.3 g/dl (32.0-36.5); MEAN CORPUSCULAR VOLUME 87.6 fl (80.0-96.0); MONO # 0.3 10^3/uL (0.0-0.8); MONO % 4.5 % (2.0-8.0); NEUTROPHILS # 6.4 10^3/uL (1.5-8.5); PLATELET COUNT, AUTOMATED 296 10^3/uL (150-450); RED BLOOD COUNT 2.66 10^6/uL (4.30-6.10); WHITE BLOOD COUNT 7.2 10^3/uL (4.0-10.0)
[2023-03-15 05:09] LABS: ALBUMIN 1.5 G/DL (3.2-5.2); ALKALINE PHOSPHATASE 130 U/L (46-116); ALT/SGPT 36 U/L (7.0-40); AST/SGOT 20 U/L (<34); BILIRUBIN,TOTAL 0.4 MG/DL (0.3-1.2); BLOOD UREA NITROGEN 51 MG/DL (9-23); CALCIUM LEVEL 7.9 MG/DL (8.3-10.6); CARBON DIOXIDE LEVEL 32 MMOL/L (20-31); CHLORIDE LEVEL 106 MMOL/L (98-107); CREATININE FOR GFR 0.95 MG/DL (0.70-1.30); GLOMERULAR FILTRATION RATE > 60.0 (>49); GLUCOSE, FASTING 319 MG/DL (74-106); MAGNESIUM LEVEL 2.4 MG/DL (1.8-2.4); PHOSPHORUS LEVEL 4.7 MG/DL (2.4-5.1); POTASSIUM SERUM 4.5 MMOL/L (3.5-5.1); SODIUM LEVEL 144 MMOL/L (136-145); TOTAL PROTEIN 5.2 G/DL (5.7-8.2)
[2023-03-15] MEDS: APIXABAN 5 MG TAB (ELIQUIS) PO SCH ×2 (05:17→18:00)
[2023-03-15] MEDS: HYDROCORTISONE 100MG/2ML VIAL IV SCH ×3 (05:17→22:05)
[2023-03-15] MEDS: INSULIN LISPRO (NovoLOG) PER UNIT SC SCH ×4 (05:18→23:51)
[2023-03-15] MEDS: SODIUM CHLORIDE 0.9% INJ 10 ML SYR IV SCH ×3 (05:19→22:06)
[2023-03-15 05:57] LABS: ABG BASE EXCESS 5.7 (-2.0-2.0); ABG HCO3 29.7 MMOL/L (22.0-26.0); ABG O2 SATURATION 97.8 % (95.0-99.0); ABG PARTIAL PRESSURE CO2 40.6 mmHg (35.0-45.0); ABG PARTIAL PRESSURE O2 101.9 mmHg (75.0-100.0); ABG STANDARD HCO3 29.7 MMOL/L. (22.0-26.0); ABG TOTAL CO2 30.9 MMOL/L (23.0-31.0); ABG pH (ARTERIAL) 7.482 UNITS (7.350-7.450)
[2023-03-15] MEDS: fentaNYL CITRATE/NaCl 1,000 MCG in IV 1 EA IV SCH (07:06)
[2023-03-15] MEDS ORDERED: fentaNYL 100 MCG/2 ML INJECTION IV PRN (08:00)
[2023-03-15] MEDS ORDERED: FUROSEMIDE 100MG/10ML VIAL IV ONE (08:00)
[2023-03-15] MEDS: PANTOPRAZOLE 40MG VIAL IV SCH (09:17)
[2023-03-15] MEDS: CHLORHEXIDINE GLUCONATE 0.12 % 15ML UDC (PERIDEX ORAL RINSE) MT SCH ×2 (09:17→20:19)
[2023-03-15] MEDS: LEVEMIR (INSULIN DETEMIR) 1 UNITS/0.01ML SC SCH ×2 (09:17→20:18)
[2023-03-15] MEDS: DOCUSATE SOD LIQ 100MG/10ML UDC GT SCH ×2 (09:18→20:17)
[2023-03-15] MEDS: CLOPIDOGREL 75 MG TAB NG SCH (09:18)
[2023-03-15] MEDS: MIDAZOLAM 100MG/100ML-0.9%NACL 100 MG in IV 1 EA IV SCH ×2 (11:49→23:57)
[2023-03-15] MEDS ORDERED: NITROGLYCERIN 0.3MG SUBL TAB SL STA ×2 (14:15→14:39)
[2023-03-15] MEDS: ACETAMINOPHEN 325MG/10.15ML UDC GT PRN ×2 (14:16→14:44)
[2023-03-15] MEDS ORDERED: ASPIRIN 325 MG TAB PEG STA (14:49)
[2023-03-15 17:49] LABS: CK-MB VALUE MASS 3.2 NG/ML (<3.6)
[2023-03-15 17:55] LABS: MB/CK RELATIVE INDEX 1.3 (< OR =4)
[2023-03-15] MEDS: dexmedeTOMidine 200 MCG in IV 1 EA IV SCH ×3 (18:34→23:35)
[2023-03-16] VITALS (31 sets, daily range): BP systolic 125–156; BP diastolic 60–79; TEMP 96.1–98.9; O2SAT 90–99
[2023-03-16] MEDS: fentaNYL 100 MCG/2 ML INJECTION IV PRN ×5 (00:21→14:05)
[2023-03-16] MEDS: PIPERACILLIN/TAZOBACTAM SOD 4.5 GM in D5W MINI-BAG PLUS 50 ML IV SCH ×4 (01:20→20:55)
[2023-03-16] MEDS: MIDAZOLAM INJ 2MG/2ML VIAL IV PRN ×7 (02:02→20:56)
[2023-03-16] MEDS: dexmedeTOMidine 200 MCG in IV 1 EA IV SCH ×9 (02:14→23:24)
[2023-03-16] MEDS: IPRATROPIUM 0.5MG/ALBUTEROL 2.5MG INH SOL UD 3ML (DUONEB) NEB SCH ×6 (03:08→23:15)
[2023-03-16 05:17] LABS: EOS % 0.3 % (0.0-3.0); HEMATOCRIT 23.2 % (42.0-52.0); HEMOGLOBIN 7.2 g/dl (13.5-17.5); LYMPH # 0.5 10^3/uL (1.5-5.0); MEAN CORPUSCULAR HEMOGLOBIN 27.5 pg (27.0-33.0); MEAN CORPUSCULAR VOLUME 88.5 fl (80.0-96.0); MONO # 0.3 10^3/uL (0.0-0.8); MONO % 4.3 % (2.0-8.0); NEUTROPHILS # 5.8 10^3/uL (1.5-8.5); NEUTROPHILS % 87.8 % (36.0-66.0); PLATELET COUNT, AUTOMATED 363 10^3/uL (150-450); RED BLOOD COUNT 2.62 10^6/uL (4.30-6.10); WHITE BLOOD COUNT 6.6 10^3/uL (4.0-10.0)
[2023-03-16 05:44] LABS: ALBUMIN 1.6 G/DL (3.2-5.2); ALKALINE PHOSPHATASE 119 U/L (46-116); ALT/SGPT 35 U/L (7.0-40); AST/SGOT 31 U/L (<34); BILIRUBIN,TOTAL 0.3 MG/DL (0.3-1.2); BLOOD UREA NITROGEN 42 MG/DL (9-23); CALCIUM LEVEL 8.1 MG/DL (8.3-10.6); CARBON DIOXIDE LEVEL 32 MMOL/L (20-31); CHLORIDE LEVEL 108 MMOL/L (98-107); CREATININE FOR GFR 0.79 MG/DL (0.70-1.30); GLOMERULAR FILTRATION RATE > 60.0 (>49); GLUCOSE, FASTING 163 MG/DL (74-106); POTASSIUM SERUM 3.4 MMOL/L (3.5-5.1); SODIUM LEVEL 146 MMOL/L (136-145); TOTAL PROTEIN 5.5 G/DL (5.7-8.2)
[2023-03-16] MEDS: HYDROCORTISONE 100MG/2ML VIAL IV SCH ×3 (05:51→22:26)
[2023-03-16] MEDS: APIXABAN 5 MG TAB (ELIQUIS) PO SCH (05:51)
[2023-03-16] MEDS: SODIUM CHLORIDE 0.9% INJ 10 ML SYR IV SCH ×3 (05:52→22:00)
[2023-03-16] MEDS: INSULIN LISPRO (NovoLOG) PER UNIT SC SCH ×4 (05:52→23:48)
[2023-03-16 05:57] LABS: ABG BASE EXCESS 7.4 (-2.0-2.0); ABG HCO3 31.3 MMOL/L (22.0-26.0); ABG O2 SATURATION 96.9 % (95.0-99.0); ABG PARTIAL PRESSURE O2 91.8 mmHg (75.0-100.0); ABG STANDARD HCO3 31.3 MMOL/L. (22.0-26.0); ABG TOTAL CO2 32.5 MMOL/L (23.0-31.0)
[2023-03-16] MEDS ORDERED: KCL 20MEQ IN 100ML SWI (KRUN) 20 MEQ in IV 1 EA IV ONE ×2 (08:00)
[2023-03-16] MEDS: CLOPIDOGREL 75 MG TAB NG SCH (08:34)
[2023-03-16] MEDS: CHLORHEXIDINE GLUCONATE 0.12 % 15ML UDC (PERIDEX ORAL RINSE) MT SCH ×2 (08:35→20:56)
[2023-03-16] MEDS: DOCUSATE SOD LIQ 100MG/10ML UDC GT SCH ×2 (08:36→20:56)
[2023-03-16] MEDS: LEVEMIR (INSULIN DETEMIR) 1 UNITS/0.01ML SC SCH ×2 (08:36→21:09)
[2023-03-16] MEDS: PANTOPRAZOLE 40MG VIAL IV SCH (08:36)
[2023-03-16] MEDS: MIDAZOLAM 100MG/100ML-0.9%NACL 100 MG in IV 1 EA IV SCH (09:01)
[2023-03-16] MEDS ORDERED: LIDOCAINE 1% MDV 20ML VIAL As Ordered ONE (09:42)
[2023-03-16] MEDS ORDERED: LIDOCAINE 1% MDV 20ML VIAL IM ONE (10:00)
[2023-03-16] MEDS ORDERED: CETACAINE SPRAY 5GM TOP ONE (11:00)
[2023-03-16] MEDS: propofoL 1,000 MG in IV 1 EA IV SCH (15:05)
[2023-03-16 19:25] LABS: ABG BASE EXCESS 6.9 (-2.0-2.0); ABG HCO3 30.8 MMOL/L (22.0-26.0); ABG O2 SATURATION 97.4 % (95.0-99.0); ABG PARTIAL PRESSURE CO2 41.6 mmHg (35.0-45.0); ABG PARTIAL PRESSURE O2 99.7 mmHg (75.0-100.0); ABG STANDARD HCO3 30.7 MMOL/L. (22.0-26.0); ABG TOTAL CO2 32.1 MMOL/L (23.0-31.0); ABG pH (ARTERIAL) 7.488 UNITS (7.350-7.450)
[2023-03-16 22:43] LABS: BASO % 0.1 % (0.0-1.0); EOS % 0.3 % (0.0-3.0); HEMATOCRIT 22.3 % (42.0-52.0); LYMPH # 0.7 10^3/uL (1.5-5.0); LYMPH % 10.4 % (24.0-44.0); MEAN CORPUSCULAR HEMOGLOBIN 27.7 pg (27.0-33.0); MEAN CORPUSCULAR HGB CONC 31.4 g/dl (32.0-36.5); MEAN CORPUSCULAR VOLUME 88.1 fl (80.0-96.0); MONO # 0.4 10^3/uL (0.0-0.8); MONO % 5.2 % (2.0-8.0); NEUTROPHILS # 5.6 10^3/uL (1.5-8.5); NEUTROPHILS % 83.3 % (36.0-66.0); PLATELET COUNT, AUTOMATED 414 10^3/uL (150-450); RED BLOOD COUNT 2.53 10^6/uL (4.30-6.10); WHITE BLOOD COUNT 6.7 10^3/uL (4.0-10.0)
[2023-03-16 23:24] LABS: ALBUMIN 1.6 G/DL (3.2-5.2); ALKALINE PHOSPHATASE 118 U/L (46-116); ALT/SGPT 54 U/L (7.0-40); AST/SGOT 72 U/L (<34); BILIRUBIN,TOTAL 0.2 MG/DL (0.3-1.2); BLOOD UREA NITROGEN 35 MG/DL (9-23); CALCIUM LEVEL 7.5 MG/DL (8.3-10.6); CARBON DIOXIDE LEVEL 33 MMOL/L (20-31); CHLORIDE LEVEL 110 MMOL/L (98-107); CREATININE FOR GFR 0.71 MG/DL (0.70-1.30); GLOMERULAR FILTRATION RATE > 60.0 (>49); GLUCOSE, FASTING 123 MG/DL (74-106); POTASSIUM SERUM 3.7 MMOL/L (3.5-5.1); SODIUM LEVEL 147 MMOL/L (136-145); TOTAL PROTEIN 5.3 G/DL (5.7-8.2)
[2023-03-17] VITALS (56 sets, daily range): BP systolic 97–169; BP diastolic 53–79; TEMP 98.7–100.7; O2SAT 91–97
[2023-03-17] MEDS: propofoL 1,000 MG in IV 1 EA IV SCH ×6 (01:33→22:16)
[2023-03-17] MEDS: dexmedeTOMidine 200 MCG in IV 1 EA IV SCH ×9 (01:37→22:15)
[2023-03-17] MEDS: PIPERACILLIN/TAZOBACTAM SOD 4.5 GM in D5W MINI-BAG PLUS 50 ML IV SCH ×4 (03:00→19:49)
[2023-03-17] MEDS ORDERED: dexmedeTOMIDine (4MCG/ML)200MCG/50ML BTL (PRECEDEX) As Ordered ONE (03:43)
[2023-03-17] MEDS: IPRATROPIUM 0.5MG/ALBUTEROL 2.5MG INH SOL UD 3ML (DUONEB) NEB SCH ×6 (04:51→23:31)
[2023-03-17] MEDS: MIDAZOLAM INJ 2MG/2ML VIAL IV PRN ×3 (05:28→19:38)
[2023-03-17] MEDS: SODIUM CHLORIDE 0.9% INJ 10 ML SYR IV SCH ×3 (06:00→22:00)
[2023-03-17] MEDS: HYDROCORTISONE 100MG/2ML VIAL IV SCH (06:24)
[2023-03-17] MEDS: INSULIN LISPRO (NovoLOG) PER UNIT SC SCH ×3 (06:24→18:00)
[2023-03-17 06:55] LABS: EOS % 0.4 % (0.0-3.0); HEMATOCRIT 25.5 % (42.0-52.0); HEMOGLOBIN 7.9 g/dl (13.5-17.5); LYMPH # 0.8 10^3/uL (1.5-5.0); LYMPH % 11.1 % (24.0-44.0); MEAN CORPUSCULAR HEMOGLOBIN 27.5 pg (27.0-33.0); MEAN CORPUSCULAR VOLUME 88.9 fl (80.0-96.0); MONO # 0.3 10^3/uL (0.0-0.8); MONO % 4.7 % (2.0-8.0); NEUTROPHILS % 82.8 % (36.0-66.0); PLATELET COUNT, AUTOMATED 424 10^3/uL (150-450); RED BLOOD COUNT 2.87 10^6/uL (4.30-6.10); WHITE BLOOD COUNT 7.3 10^3/uL (4.0-10.0)
[2023-03-17] MEDS: DOCUSATE SOD LIQ 100MG/10ML UDC GT SCH ×2 (08:57→21:45)
[2023-03-17] MEDS: CLOPIDOGREL 75 MG TAB NG SCH (08:57)
[2023-03-17] MEDS: CHLORHEXIDINE GLUCONATE 0.12 % 15ML UDC (PERIDEX ORAL RINSE) MT SCH ×2 (08:57→21:45)
[2023-03-17] MEDS: PANTOPRAZOLE 40MG VIAL IV SCH (08:58)
[2023-03-17] MEDS: LEVEMIR (INSULIN DETEMIR) 1 UNITS/0.01ML SC SCH (08:58)
[2023-03-17 11:27] LABS: CPK CREATINE PHOSPHOKINASE 84 U/L (46-171)
[2023-03-17 11:29] LABS: ALBUMIN 1.6 G/DL (3.2-5.2); ALKALINE PHOSPHATASE 131 U/L (46-116); ALT/SGPT 72 U/L (7.0-40); AST/SGOT 82 U/L (<34); BILIRUBIN,TOTAL 0.4 MG/DL (0.3-1.2); BLOOD UREA NITROGEN 31 MG/DL (9-23); CALCIUM LEVEL 7.7 MG/DL (8.3-10.6); CARBON DIOXIDE LEVEL 31 MMOL/L (20-31); CHLORIDE LEVEL 108 MMOL/L (98-107); CK-MB VALUE MASS < 1.0 NG/ML (<3.6); CREATININE FOR GFR 0.71 MG/DL (0.70-1.30); GLOMERULAR FILTRATION RATE > 60.0 (>49); GLUCOSE, FASTING 176 MG/DL (74-106); MB/CK RELATIVE INDEX 1.19 (< OR =4); POTASSIUM SERUM 3.3 MMOL/L (3.5-5.1); SODIUM LEVEL 145 MMOL/L (136-145); TOTAL PROTEIN 5.3 G/DL (5.7-8.2)
[2023-03-17] MEDS: fentaNYL 100 MCG/2 ML INJECTION IV PRN (12:46)
[2023-03-17] MEDS ORDERED: KCL 20MEQ IN 100ML SWI (KRUN) 20 MEQ in IV 1 EA IV ONE ×2 (13:00)
[2023-03-17] MEDS: MIDAZOLAM 100MG/100ML-0.9%NACL 100 MG in IV 1 EA IV SCH (13:00)
[2023-03-17] MEDS ORDERED: fentaNYL 100 MCG/2 ML INJECTION IV ONE (16:30)
[2023-03-17] MEDS ORDERED: MIDAZOLAM 5MG/ML 1ML VIAL IV SCH (16:30)
[2023-03-17] MEDS ORDERED: CETACAINE SPRAY 5GM TOP ONE (16:30)
[2023-03-17] MEDS ORDERED: LIDOCAINE VISCOUS 2% SOLN 15ML UDC MT ONE (16:50)
[2023-03-17] MEDS ORDERED: DEXTROSE 50% 50ML SYRINGE IV STA (18:45)
[2023-03-18] VITALS (30 sets, daily range): BP systolic 112–202; BP diastolic 56–103; TEMP 97.6–98.6; O2SAT 88–99
[2023-03-18] MEDS: dexmedeTOMidine 200 MCG in IV 1 EA IV SCH ×4 (00:27→06:57)
[2023-03-18] MEDS: DEXTROSE 50% 50ML SYRINGE IV PRN ×2 (00:39→06:25)
[2023-03-18] MEDS: PIPERACILLIN/TAZOBACTAM SOD 4.5 GM in D5W MINI-BAG PLUS 50 ML IV SCH ×4 (02:14→20:50)
[2023-03-18] MEDS: propofoL 1,000 MG in IV 1 EA IV SCH ×2 (02:23→06:58)
[2023-03-18] MEDS: IPRATROPIUM 0.5MG/ALBUTEROL 2.5MG INH SOL UD 3ML (DUONEB) NEB SCH ×6 (03:16→22:58)
[2023-03-18 05:32] LABS: BASO % 0.2 % (0.0-1.0); EOS # 0.1 10^3/uL (0.0-0.5); EOS % 1.7 % (0.0-3.0); HEMATOCRIT 25.1 % (42.0-52.0); HEMOGLOBIN 7.9 g/dl (13.5-17.5); LYMPH % 15.7 % (24.0-44.0); MEAN CORPUSCULAR HEMOGLOBIN 27.9 pg (27.0-33.0); MEAN CORPUSCULAR HGB CONC 31.5 g/dl (32.0-36.5); MEAN CORPUSCULAR VOLUME 88.7 fl (80.0-96.0); MONO # 0.4 10^3/uL (0.0-0.8); MONO % 5.7 % (2.0-8.0); NEUTROPHILS # 4.8 10^3/uL (1.5-8.5); NEUTROPHILS % 75.6 % (36.0-66.0); PLATELET COUNT, AUTOMATED 423 10^3/uL (150-450); RED BLOOD COUNT 2.83 10^6/uL (4.30-6.10); WHITE BLOOD COUNT 6.3 10^3/uL (4.0-10.0)
[2023-03-18] MEDS: INSULIN LISPRO (NovoLOG) PER UNIT SC SCH ×5 (06:00→23:15)
[2023-03-18 06:14] LABS: ALBUMIN 1.6 G/DL (3.2-5.2); ALKALINE PHOSPHATASE 126 U/L (46-116); ALT/SGPT 72 U/L (7.0-40); AST/SGOT 67 U/L (<34); BILIRUBIN,TOTAL 0.3 MG/DL (0.3-1.2); BLOOD UREA NITROGEN 24 MG/DL (9-23); CALCIUM LEVEL 7.2 MG/DL (8.3-10.6); CARBON DIOXIDE LEVEL 31 MMOL/L (20-31); CHLORIDE LEVEL 111 MMOL/L (98-107); CREATININE FOR GFR 0.73 MG/DL (0.70-1.30); GLOMERULAR FILTRATION RATE > 60.0 (>49); GLUCOSE, FASTING 65 MG/DL (74-106); MAGNESIUM LEVEL 2.2 MG/DL (1.8-2.4); POTASSIUM SERUM 3.2 MMOL/L (3.5-5.1); SODIUM LEVEL 147 MMOL/L (136-145)
[2023-03-18] MEDS: SODIUM CHLORIDE 0.9% INJ 10 ML SYR IV SCH ×3 (06:26→21:59)
[2023-03-18] MEDS ORDERED: POTASSIUM CHLORIDE 10MEQ SR TABLET PO ONE (07:15)
[2023-03-18] MEDS ORDERED: KCL 20MEQ IN 100ML SWI (KRUN) 20 MEQ in IV 1 EA IV ONE ×4 (08:00→09:00)
[2023-03-18] MEDS: PANTOPRAZOLE 40MG VIAL IV SCH (08:13)
[2023-03-18] MEDS: CHLORHEXIDINE GLUCONATE 0.12 % 15ML UDC (PERIDEX ORAL RINSE) MT SCH (08:13)
[2023-03-18] MEDS: DOCUSATE SOD LIQ 100MG/10ML UDC GT SCH ×2 (08:13→20:50)
[2023-03-18] MEDS: CLOPIDOGREL 75 MG TAB NG SCH (08:13)
[2023-03-18 08:38] LABS: ABG HCO3 27.9 MMOL/L (22.0-26.0); ABG O2 SATURATION 91.1 % (95.0-99.0); ABG PARTIAL PRESSURE CO2 34.6 mmHg (35.0-45.0); ABG PARTIAL PRESSURE O2 62.9 mmHg (75.0-100.0); ABG STANDARD HCO3 28.9 MMOL/L. (22.0-26.0); ABG pH (ARTERIAL) 7.525 UNITS (7.350-7.450)
[2023-03-18 15:58] LABS: ABG BASE EXCESS 3.6 (-2.0-2.0); ABG HCO3 27.1 MMOL/L (22.0-26.0); ABG O2 SATURATION 97.3 % (95.0-99.0); ABG PARTIAL PRESSURE CO2 36.9 mmHg (35.0-45.0); ABG STANDARD HCO3 27.7 MMOL/L. (22.0-26.0); ABG TOTAL CO2 28.2 MMOL/L (23.0-31.0); ABG pH (ARTERIAL) 7.484 UNITS (7.350-7.450)
[2023-03-18] MEDS: hydrALAZINE 20MG/ML 1ML VIAL IV PRN (22:11)
[2023-03-18] MEDS ORDERED: LORazepam 2 MG/ML 1ML VIAL IV STA (22:58)
[2023-03-18] MEDS ORDERED: LORazepam 2 MG/ML 1ML VIAL As Ordered ONE (22:58)
[2023-03-18] MEDS ORDERED: FUROSEMIDE 40MG/4ML VIAL As Ordered ONE (22:59)
[2023-03-18] MEDS ORDERED: FUROSEMIDE 40MG/4ML VIAL IV ONE (23:00)
[2023-03-19] VITALS (15 sets, daily range): BP systolic 119–176; BP diastolic 62–91; TEMP 97.1–98.8; O2SAT 88–99
[2023-03-19] MEDS: PIPERACILLIN/TAZOBACTAM SOD 4.5 GM in D5W MINI-BAG PLUS 50 ML IV SCH ×4 (02:59→20:27)
[2023-03-19] MEDS: IPRATROPIUM 0.5MG/ALBUTEROL 2.5MG INH SOL UD 3ML (DUONEB) NEB SCH ×6 (03:24→23:34)
[2023-03-19] MEDS: INSULIN LISPRO (NovoLOG) PER UNIT SC SCH ×3 (06:00→18:38)
[2023-03-19] MEDS: SODIUM CHLORIDE 0.9% INJ 10 ML SYR IV SCH ×3 (06:20→21:47)
[2023-03-19 06:39] LABS: BASO % 0.3 % (0.0-1.0); EOS # 0.1 10^3/uL (0.0-0.5); EOS % 1.6 % (0.0-3.0); HEMATOCRIT 27.9 % (42.0-52.0); HEMOGLOBIN 8.5 g/dl (13.5-17.5); LYMPH # 0.8 10^3/uL (1.5-5.0); LYMPH % 11.1 % (24.0-44.0); MEAN CORPUSCULAR HEMOGLOBIN 27.3 pg (27.0-33.0); MEAN CORPUSCULAR HGB CONC 30.5 g/dl (32.0-36.5); MEAN CORPUSCULAR VOLUME 89.7 fl (80.0-96.0); MONO # 0.4 10^3/uL (0.0-0.8); MONO % 5.9 % (2.0-8.0); NEUTROPHILS # 5.5 10^3/uL (1.5-8.5); NEUTROPHILS % 79.8 % (36.0-66.0); PLATELET COUNT, AUTOMATED 483 10^3/uL (150-450); RED BLOOD COUNT 3.11 10^6/uL (4.30-6.10); WHITE BLOOD COUNT 6.9 10^3/uL (4.0-10.0)
[2023-03-19 07:00] LABS: ALBUMIN 1.7 G/DL (3.2-5.2); ALKALINE PHOSPHATASE 127 U/L (46-116); ALT/SGPT 60 U/L (7.0-40); AST/SGOT 44 U/L (<34); BILIRUBIN,TOTAL 0.8 MG/DL (0.3-1.2); BLOOD UREA NITROGEN 23 MG/DL (9-23); CARBON DIOXIDE LEVEL 28 MMOL/L (20-31); CHLORIDE LEVEL 110 MMOL/L (98-107); CREATININE FOR GFR 0.66 MG/DL (0.70-1.30); GLOMERULAR FILTRATION RATE > 60.0 (>49); GLUCOSE, FASTING 215 MG/DL (74-106); POTASSIUM SERUM 3.3 MMOL/L (3.5-5.1); SODIUM LEVEL 145 MMOL/L (136-145); TOTAL PROTEIN 5.2 G/DL (5.7-8.2)
[2023-03-19] MEDS ORDERED: KCL 20MEQ IN 100ML SWI (KRUN) 20 MEQ in IV 1 EA IV ONE ×4 (08:00→09:00)
[2023-03-19] MEDS: SYMBICORT 160/4.5MCG INHALER 6GM INH SCH ×3 (08:10→20:07)
[2023-03-19] MEDS: DOCUSATE SOD LIQ 100MG/10ML UDC GT SCH ×2 (08:29→20:27)
[2023-03-19] MEDS: PANTOPRAZOLE 40MG VIAL IV SCH (08:29)
[2023-03-19] MEDS: CLOPIDOGREL 75 MG TAB NG SCH (08:29)
[2023-03-19] MEDS ORDERED: ACETAMINOPHEN TAB 650MG DOSE (2X325MG) PO PRN (11:20)
[2023-03-19] MEDS: hydrALAZINE 20MG/ML 1ML VIAL IV PRN (12:24)
[2023-03-19] MEDS ORDERED: FUROSEMIDE 100MG/10ML VIAL IV ONE (15:00)
[2023-03-19] MEDS: APIXABAN 5 MG TAB (ELIQUIS) PO SCH (18:31)
[2023-03-19] MEDS: amLODIPine 5 MG TAB PO SCH (18:31)
[2023-03-19 19:20] LABS: BLOOD UREA NITROGEN 19 MG/DL (9-23); CALCIUM LEVEL 8.1 MG/DL (8.3-10.6); CARBON DIOXIDE LEVEL 27 MMOL/L (20-31); CHLORIDE LEVEL 106 MMOL/L (98-107); CREATININE FOR GFR 0.69 MG/DL (0.70-1.30); GLOMERULAR FILTRATION RATE > 60.0 (>49); GLUCOSE, FASTING 230 MG/DL (74-106); POTASSIUM SERUM 3.1 MMOL/L (3.5-5.1); SODIUM LEVEL 144 MMOL/L (136-145)
[2023-03-19] MEDS: KCL 20MEQ IN 100ML SWI (KRUN) 20 MEQ in IV 1 EA IV SCH ×4 (20:29→21:45)
[2023-03-19 21:01] LABS: MAGNESIUM LEVEL 1.7 MG/DL (1.8-2.4)
[2023-03-20] VITALS (8 sets, daily range): BP systolic 140–178; BP diastolic 60–103; TEMP 98.4–99.4; O2SAT 90–98
[2023-03-20] MEDS: KCL 20MEQ IN 100ML SWI (KRUN) 20 MEQ in IV 1 EA IV SCH ×2 (00:34)
[2023-03-20] MEDS: PIPERACILLIN/TAZOBACTAM SOD 4.5 GM in D5W MINI-BAG PLUS 50 ML IV SCH ×2 (01:37→08:55)
[2023-03-20] MEDS: IPRATROPIUM 0.5MG/ALBUTEROL 2.5MG INH SOL UD 3ML (DUONEB) NEB SCH ×6 (03:22→23:16)
[2023-03-20] MEDS: hydrALAZINE 20MG/ML 1ML VIAL IV PRN (04:31)
[2023-03-20] MEDS: SODIUM CHLORIDE 0.9% INJ 10 ML SYR IV SCH ×3 (05:52→21:00)
[2023-03-20] MEDS: INSULIN LISPRO (NovoLOG) PER UNIT SC SCH ×5 (06:00→20:45)
[2023-03-20] MEDS: APIXABAN 5 MG TAB (ELIQUIS) PO SCH ×2 (06:10→17:24)
[2023-03-20 06:32] LABS: HEMATOCRIT 30.2 % (42.0-52.0); HEMOGLOBIN 9.3 g/dl (13.5-17.5); MEAN CORPUSCULAR HEMOGLOBIN 27.8 pg (27.0-33.0); MEAN CORPUSCULAR HGB CONC 30.8 g/dl (32.0-36.5); MEAN CORPUSCULAR VOLUME 90.1 fl (80.0-96.0); PLATELET COUNT, AUTOMATED 503 10^3/uL (150-450); RED BLOOD COUNT 3.35 10^6/uL (4.30-6.10); WHITE BLOOD COUNT 7.4 10^3/uL (4.0-10.0)
[2023-03-20 07:00] LABS: IRON (FE) 26 UG/DL (65-175)
[2023-03-20 07:01] LABS: PERCENT SATURATION 13.7 % (19.7-50.0); TOTAL IRON BINDING CAPACITY 190 UG/DL (250-425)
[2023-03-20 07:04] LABS: ALKALINE PHOSPHATASE 134 U/L (46-116); ALT/SGPT 57 U/L (7.0-40); AST/SGOT 31 U/L (<34); BILIRUBIN,TOTAL 0.9 MG/DL (0.3-1.2); BLOOD UREA NITROGEN 20 MG/DL (9-23); CALCIUM LEVEL 8.2 MG/DL (8.3-10.6); CARBON DIOXIDE LEVEL 25 MMOL/L (20-31); CHLORIDE LEVEL 107 MMOL/L (98-107); CREATININE FOR GFR 0.65 MG/DL (0.70-1.30); FERRITIN 444.9 NG/ML (10.5-307.3); GLOMERULAR FILTRATION RATE > 60.0 (>49); GLUCOSE, FASTING 223 MG/DL (74-106); POTASSIUM SERUM 3.7 MMOL/L (3.5-5.1); SODIUM LEVEL 143 MMOL/L (136-145); TOTAL PROTEIN 5.6 G/DL (5.7-8.2)
[2023-03-20 07:08] LABS: HEMOGLOBIN A1c 8.2 % (4.0-6.0)
[2023-03-20] MEDS: SYMBICORT 160/4.5MCG INHALER 6GM INH SCH ×2 (07:14→19:29)
[2023-03-20] MEDS: PANTOPRAZOLE 40MG VIAL IV SCH (08:55)
[2023-03-20] MEDS: amLODIPine 5 MG TAB PO SCH (08:56)
[2023-03-20] MEDS: IRBESARTAN 150MG TAB PO SCH (08:57)
[2023-03-20] MEDS: CLOPIDOGREL 75 MG TAB NG SCH (08:57)
[2023-03-20] MEDS: FERROUS SULFATE 325MG TAB PO SCH ×2 (09:00→20:45)
[2023-03-20] MEDS: FUROSEMIDE 40MG/4ML VIAL IV SCH ×4 (09:00→17:23)
[2023-03-20] MEDS: DOCUSATE SOD LIQ 100MG/10ML UDC PO SCH ×2 (09:00→20:16)
[2023-03-20] MEDS ORDERED: NEOSPORIN OINT 0.9 GM PKT TOP ONE (15:00)
[2023-03-20] MEDS ORDERED: SENNA 8.6 MG TAB (SENOKOT) PO SCH (21:00)
[2023-03-21] VITALS (18 sets, daily range): BP systolic 144–182; BP diastolic 65–79; TEMP 97.4–99; O2SAT 90–97
[2023-03-21] MEDS: IPRATROPIUM 0.5MG/ALBUTEROL 2.5MG INH SOL UD 3ML (DUONEB) NEB SCH ×6 (03:08→23:15)
[2023-03-21 04:44] LABS: HEMATOCRIT 31.3 % (42.0-52.0); HEMOGLOBIN 9.5 g/dl (13.5-17.5); MEAN CORPUSCULAR HEMOGLOBIN 27.2 pg (27.0-33.0); MEAN CORPUSCULAR HGB CONC 30.4 g/dl (32.0-36.5); MEAN CORPUSCULAR VOLUME 89.7 fl (80.0-96.0); PLATELET COUNT, AUTOMATED 526 10^3/uL (150-450); RED BLOOD COUNT 3.49 10^6/uL (4.30-6.10); WHITE BLOOD COUNT 6.6 10^3/uL (4.0-10.0)
[2023-03-21 05:08] LABS: ALBUMIN 2.1 G/DL (3.2-5.2); ALKALINE PHOSPHATASE 125 U/L (46-116); ALT/SGPT 46 U/L (7.0-40); AST/SGOT 23 U/L (<34); BILIRUBIN,TOTAL 0.7 MG/DL (0.3-1.2); BLOOD UREA NITROGEN 19 MG/DL (9-23); CALCIUM LEVEL 7.5 MG/DL (8.3-10.6); CARBON DIOXIDE LEVEL 28 MMOL/L (20-31); CHLORIDE LEVEL 106 MMOL/L (98-107); CREATININE FOR GFR 0.63 MG/DL (0.70-1.30); GLOMERULAR FILTRATION RATE > 60.0 (>49); GLUCOSE, FASTING 265 MG/DL (74-106); POTASSIUM SERUM 3.3 MMOL/L (3.5-5.1); SODIUM LEVEL 144 MMOL/L (136-145); TOTAL PROTEIN 5.6 G/DL (5.7-8.2)
[2023-03-21] MEDS: APIXABAN 5 MG TAB (ELIQUIS) PO SCH ×2 (05:59→18:04)
[2023-03-21] MEDS: SODIUM CHLORIDE 0.9% INJ 10 ML SYR IV SCH ×3 (06:00→22:00)
[2023-03-21] MEDS ORDERED: KCL 10MEQ/100ML SWI (KRUN) 10 MEQ in IV 1 EA IV SCH (07:00)
[2023-03-21] MEDS ORDERED: KCL 20MEQ IN 100ML SWI (KRUN) 20 MEQ in IV 1 EA IV ONE ×2 (07:00)
[2023-03-21] MEDS ORDERED: hydrALAZINE 20MG/ML 1ML VIAL IV PRN (07:30)
[2023-03-21] MEDS ORDERED: POTASSIUM CHLORIDE 10MEQ SR TABLET PO ONE (07:45)
[2023-03-21] MEDS: SYMBICORT 160/4.5MCG INHALER 6GM INH SCH ×2 (08:00→19:09)
[2023-03-21] MEDS ORDERED: LEVEMIR (INSULIN DETEMIR) 1 UNITS/0.01ML SC SCH (09:00)
[2023-03-21] MEDS: IRBESARTAN 150MG TAB PO SCH (09:08)
[2023-03-21] MEDS: CLOPIDOGREL 75 MG TAB NG SCH (09:09)
[2023-03-21] MEDS: FUROSEMIDE 40MG/4ML VIAL IV SCH ×2 (09:09→18:00)
[2023-03-21] MEDS: PANTOPRAZOLE 40MG VIAL IV SCH (09:09)
[2023-03-21] MEDS: FERROUS SULFATE 325MG TAB PO SCH ×2 (09:09→20:27)
[2023-03-21] MEDS: INSULIN LISPRO (NovoLOG) PER UNIT SC SCH ×4 (09:10→20:18)
[2023-03-21] MEDS: LEVEMIR (INSULIN DETEMIR) 1 UNITS/0.01ML SC SCH (20:26)
[2023-03-22] VITALS (8 sets, daily range): BP systolic 117–168; BP diastolic 59–98; TEMP 97.1–98.5; O2SAT 90–100
[2023-03-22] MEDS: IPRATROPIUM 0.5MG/ALBUTEROL 2.5MG INH SOL UD 3ML (DUONEB) NEB SCH ×6 (03:03→23:22)
[2023-03-22] MEDS: SODIUM CHLORIDE 0.9% INJ 10 ML SYR IV SCH (05:09)
[2023-03-22] MEDS: APIXABAN 5 MG TAB (ELIQUIS) PO SCH ×2 (05:40→17:45)
[2023-03-22] MEDS ORDERED: POTASSIUM CHLORIDE 10MEQ SR TABLET PO ONE (06:40)
[2023-03-22] MEDS: SYMBICORT 160/4.5MCG INHALER 6GM INH SCH ×2 (07:16→19:54)
[2023-03-22] MEDS: CLOPIDOGREL 75 MG TAB NG SCH (08:21)
[2023-03-22] MEDS: INSULIN LISPRO (NovoLOG) PER UNIT SC SCH ×4 (08:21→20:23)
[2023-03-22] MEDS: FERROUS SULFATE 325MG TAB PO SCH ×2 (08:21→20:22)
[2023-03-22] MEDS: LEVEMIR (INSULIN DETEMIR) 1 UNITS/0.01ML SC SCH (08:21)
[2023-03-22 08:22] LABS: HEMATOCRIT 33.5 % (42.0-52.0); MEAN CORPUSCULAR HGB CONC 29.9 g/dl (32.0-36.5); MEAN CORPUSCULAR VOLUME 90.5 fl (80.0-96.0); PLATELET COUNT, AUTOMATED 510 10^3/uL (150-450)
[2023-03-22] MEDS: FUROSEMIDE 40MG/4ML VIAL IV SCH ×2 (08:22→16:52)
[2023-03-22] MEDS: PANTOPRAZOLE 40MG VIAL IV SCH (08:22)
[2023-03-22 08:54] LABS: ALBUMIN 2.4 G/DL (3.2-5.2); ALKALINE PHOSPHATASE 127 U/L (46-116); ALT/SGPT 42 U/L (7.0-40); AST/SGOT 24 U/L (<34); BILIRUBIN,TOTAL 0.5 MG/DL (0.3-1.2); BLOOD UREA NITROGEN 14 MG/DL (9-23); CALCIUM LEVEL 8.1 MG/DL (8.3-10.6); CARBON DIOXIDE LEVEL 32 MMOL/L (20-31); CHLORIDE LEVEL 103 MMOL/L (98-107); CREATININE FOR GFR 0.58 MG/DL (0.70-1.30); GLOMERULAR FILTRATION RATE > 60.0 (>49); GLUCOSE, FASTING 208 MG/DL (74-106); POTASSIUM SERUM 3.3 MMOL/L (3.5-5.1); SODIUM LEVEL 143 MMOL/L (136-145); TOTAL PROTEIN 6.1 G/DL (5.7-8.2)
[2023-03-22] MEDS: IRBESARTAN 150MG TAB PO SCH (12:08)
[2023-03-22] MEDS ORDERED: LEVEMIR (INSULIN DETEMIR) 1 UNITS/0.01ML SC SCH (21:00)
[2023-03-23] VITALS (27 sets, daily range): BP systolic 132–160; BP diastolic 64–78; TEMP 97.7–98; O2SAT 84–98
[2023-03-23] MEDS: IPRATROPIUM 0.5MG/ALBUTEROL 2.5MG INH SOL UD 3ML (DUONEB) NEB SCH ×6 (03:06→23:47)
[2023-03-23 04:46] LABS: HEMATOCRIT 29.9 % (42.0-52.0); HEMOGLOBIN 9.1 g/dl (13.5-17.5); MEAN CORPUSCULAR HEMOGLOBIN 27.4 pg (27.0-33.0); MEAN CORPUSCULAR HGB CONC 30.4 g/dl (32.0-36.5); MEAN CORPUSCULAR VOLUME 90.1 fl (80.0-96.0); RED BLOOD COUNT 3.32 10^6/uL (4.30-6.10); WHITE BLOOD COUNT 6.3 10^3/uL (4.0-10.0)
[2023-03-23 04:53] LABS: PLATELET COUNT, AUTOMATED 358 10^3/uL (150-450)
[2023-03-23] MEDS: APIXABAN 5 MG TAB (ELIQUIS) PO SCH ×2 (05:08→17:44)
[2023-03-23 05:15] LABS: ALBUMIN 2.1 G/DL (3.2-5.2); ALKALINE PHOSPHATASE 106 U/L (46-116); ALT/SGPT 36 U/L (7.0-40); AST/SGOT 21 U/L (<34); BILIRUBIN,TOTAL 0.3 MG/DL (0.3-1.2); BLOOD UREA NITROGEN 15 MG/DL (9-23); CALCIUM LEVEL 7.8 MG/DL (8.3-10.6); CARBON DIOXIDE LEVEL 32 MMOL/L (20-31); CHLORIDE LEVEL 105 MMOL/L (98-107); GLOMERULAR FILTRATION RATE > 60.0 (>49); GLUCOSE, FASTING 65 MG/DL (74-106); POTASSIUM SERUM 3.1 MMOL/L (3.5-5.1); SODIUM LEVEL 144 MMOL/L (136-145); TOTAL PROTEIN 5.4 G/DL (5.7-8.2)
[2023-03-23 05:50] LABS: MAGNESIUM LEVEL 1.5 MG/DL (1.8-2.4)
[2023-03-23] MEDS ORDERED: POTASSIUM CHLORIDE 10MEQ SR TABLET PO ONE (06:00)
[2023-03-23] MEDS ORDERED: MAG SULF 1GM/100ML (MAG RUN) 1 GM in IV 1 EA IV ONE (06:55)
[2023-03-23] MEDS ORDERED: MAG SULF 1GM/100ML (MAG RUN) 1 GM in IV 1 EA IV SCH (07:00)
[2023-03-23] MEDS: SYMBICORT 160/4.5MCG INHALER 6GM INH SCH ×2 (07:06→19:23)
[2023-03-23] MEDS: INSULIN LISPRO (NovoLOG) PER UNIT SC SCH ×4 (07:26→20:50)
[2023-03-23] MEDS ORDERED: LEVEMIR (INSULIN DETEMIR) 1 UNITS/0.01ML SC ONE (08:35)
[2023-03-23] MEDS ORDERED: LEVEMIR (INSULIN DETEMIR) 1 UNITS/0.01ML SC SCH (09:00)
[2023-03-23] MEDS: FUROSEMIDE 40MG/4ML VIAL IV SCH ×2 (09:43→17:44)
[2023-03-23] MEDS: PANTOPRAZOLE 40MG VIAL IV SCH (09:43)
[2023-03-23] MEDS: MAGNESIUM OXIDE 400MG TAB (MAG-OX) PO SCH ×2 (09:44→20:49)
[2023-03-23] MEDS: IRBESARTAN 150MG TAB PO SCH (09:44)
[2023-03-23] MEDS: CLOPIDOGREL 75 MG TAB NG SCH (09:44)
[2023-03-23] MEDS: POTASSIUM CHLORIDE 10MEQ SR TABLET PO SCH ×2 (09:45→20:50)
[2023-03-23] MEDS: FERROUS SULFATE 325MG TAB PO SCH ×2 (09:45→20:50)
[2023-03-23] MEDS: LEVEMIR (INSULIN DETEMIR) 1 UNITS/0.01ML SC SCH (20:49)
[2023-03-24] VITALS (15 sets, daily range): BP systolic 121–150; BP diastolic 55–67; TEMP 97–98.2; O2SAT 91–98
[2023-03-24] MEDS: IPRATROPIUM 0.5MG/ALBUTEROL 2.5MG INH SOL UD 3ML (DUONEB) NEB SCH ×6 (03:44→23:49)
[2023-03-24] MEDS: APIXABAN 5 MG TAB (ELIQUIS) PO SCH ×2 (06:05→17:25)
[2023-03-24] MEDS: SYMBICORT 160/4.5MCG INHALER 6GM INH SCH ×2 (07:08→20:14)
[2023-03-24] MEDS: INSULIN LISPRO (NovoLOG) PER UNIT SC SCH ×4 (07:30→20:50)
[2023-03-24 07:55] LABS: BASO % 0.1 % (0.0-1.0); EOS # 0.3 10^3/uL (0.0-0.5); EOS % 3.4 % (0.0-3.0); HEMATOCRIT 33.1 % (42.0-52.0); LYMPH # 0.8 10^3/uL (1.5-5.0); LYMPH % 9.3 % (24.0-44.0); MEAN CORPUSCULAR HEMOGLOBIN 27.5 pg (27.0-33.0); MEAN CORPUSCULAR HGB CONC 30.2 g/dl (32.0-36.5); MEAN CORPUSCULAR VOLUME 90.9 fl (80.0-96.0); MONO # 0.7 10^3/uL (0.0-0.8); MONO % 8.1 % (2.0-8.0); NEUTROPHILS # 6.5 10^3/uL (1.5-8.5); NEUTROPHILS % 78.4 % (36.0-66.0); PLATELET COUNT, AUTOMATED 380 10^3/uL (150-450); RED BLOOD COUNT 3.64 10^6/uL (4.30-6.10); WHITE BLOOD COUNT 8.3 10^3/uL (4.0-10.0)
[2023-03-24 08:27] LABS: ALBUMIN 2.5 G/DL (3.2-5.2); ALKALINE PHOSPHATASE 124 U/L (46-116); ALT/SGPT 38 U/L (7.0-40); AST/SGOT 21 U/L (<34); BILIRUBIN,TOTAL 0.6 MG/DL (0.3-1.2); BLOOD UREA NITROGEN 12 MG/DL (9-23); CARBON DIOXIDE LEVEL 32 MMOL/L (20-31); CHLORIDE LEVEL 102 MMOL/L (98-107); CREATININE FOR GFR 0.56 MG/DL (0.70-1.30); GLOMERULAR FILTRATION RATE > 60.0 (>49); GLUCOSE, FASTING 100 MG/DL (74-106); MAGNESIUM LEVEL 1.7 MG/DL (1.8-2.4); POTASSIUM SERUM 3.8 MMOL/L (3.5-5.1); SODIUM LEVEL 139 MMOL/L (136-145); TOTAL PROTEIN 6.2 G/DL (5.7-8.2)
[2023-03-24] MEDS: IRBESARTAN 150MG TAB PO SCH (09:00)
[2023-03-24] MEDS: PANTOPRAZOLE 40MG VIAL IV SCH (09:37)
[2023-03-24] MEDS: POTASSIUM CHLORIDE 10MEQ SR TABLET PO SCH ×2 (09:38→20:49)
[2023-03-24] MEDS: FERROUS SULFATE 325MG TAB PO SCH ×2 (09:40→20:49)
[2023-03-24] MEDS: FUROSEMIDE 40MG/4ML VIAL IV SCH ×2 (09:40→17:24)
[2023-03-24] MEDS: CLOPIDOGREL 75 MG TAB NG SCH (09:40)
[2023-03-24] MEDS: LEVEMIR (INSULIN DETEMIR) 1 UNITS/0.01ML SC SCH ×2 (09:41→20:49)
[2023-03-24] MEDS: MAGNESIUM OXIDE 400MG TAB (MAG-OX) PO SCH ×2 (09:41→20:49)
[2023-03-25] VITALS (19 sets, daily range): BP systolic 121–146; BP diastolic 58–74; TEMP 98.2–98.6; O2SAT 89–98
[2023-03-25] MEDS: IPRATROPIUM 0.5MG/ALBUTEROL 2.5MG INH SOL UD 3ML (DUONEB) NEB SCH ×3 (03:22→11:13)
[2023-03-25] MEDS: APIXABAN 5 MG TAB (ELIQUIS) PO SCH (05:45)
[2023-03-25 05:48] LABS: BASO % 0.1 % (0.0-1.0); EOS # 0.1 10^3/uL (0.0-0.5); EOS % 1.8 % (0.0-3.0); HEMATOCRIT 28.4 % (42.0-52.0); HEMOGLOBIN 8.5 g/dl (13.5-17.5); LYMPH # 0.6 10^3/uL (1.5-5.0); LYMPH % 8.6 % (24.0-44.0); MEAN CORPUSCULAR HEMOGLOBIN 27.5 pg (27.0-33.0); MEAN CORPUSCULAR HGB CONC 29.9 g/dl (32.0-36.5); MEAN CORPUSCULAR VOLUME 91.9 fl (80.0-96.0); MONO # 0.6 10^3/uL (0.0-0.8); MONO % 8.2 % (2.0-8.0); NEUTROPHILS # 5.8 10^3/uL (1.5-8.5); NEUTROPHILS % 80.9 % (36.0-66.0); RED BLOOD COUNT 3.09 10^6/uL (4.30-6.10); WHITE BLOOD COUNT 7.2 10^3/uL (4.0-10.0)
[2023-03-25 06:03] LABS: PLATELET COUNT, AUTOMATED 264 10^3/uL (150-450)
[2023-03-25 06:13] LABS: ALKALINE PHOSPHATASE 110 U/L (46-116); ALT/SGPT 29 U/L (7.0-40); AST/SGOT 14 U/L (<34); BILIRUBIN,TOTAL 0.3 MG/DL (0.3-1.2); BLOOD UREA NITROGEN 11 MG/DL (9-23); CALCIUM LEVEL 7.5 MG/DL (8.3-10.6); CARBON DIOXIDE LEVEL 33 MMOL/L (20-31); CHLORIDE LEVEL 104 MMOL/L (98-107); CREATININE FOR GFR 0.54 MG/DL (0.70-1.30); GLOMERULAR FILTRATION RATE > 60.0 (>49); GLUCOSE, FASTING 128 MG/DL (74-106); POTASSIUM SERUM 3.9 MMOL/L (3.5-5.1); SODIUM LEVEL 141 MMOL/L (136-145); TOTAL PROTEIN 5.3 G/DL (5.7-8.2)
[2023-03-25] MEDS ORDERED: MAGNESIUM OXIDE 400MG TAB (MAG-OX) PO ONE (07:05)
[2023-03-25] MEDS: SYMBICORT 160/4.5MCG INHALER 6GM INH SCH (07:11)
[2023-03-25] MEDS: PANTOPRAZOLE 40MG VIAL IV SCH (08:01)
[2023-03-25] MEDS: FUROSEMIDE 40MG/4ML VIAL IV SCH (08:01)
[2023-03-25] MEDS: INSULIN LISPRO (NovoLOG) PER UNIT SC SCH ×2 (08:02→12:08)
[2023-03-25] MEDS: CLOPIDOGREL 75 MG TAB NG SCH (08:02)
[2023-03-25] MEDS: LEVEMIR (INSULIN DETEMIR) 1 UNITS/0.01ML SC SCH (08:02)
[2023-03-25] MEDS: FERROUS SULFATE 325MG TAB PO SCH (08:02)
[2023-03-25] MEDS: POTASSIUM CHLORIDE 10MEQ SR TABLET PO SCH (08:03)
[2023-03-25] MEDS: MAGNESIUM OXIDE 400MG TAB (MAG-OX) PO SCH (08:12)
[2023-03-25] MEDS ORDERED: SYMB16INH INH (09:52)
[2023-03-25] MEDS ORDERED: AMLO1TAB25 PO (09:52)
[2023-03-25] MEDS ORDERED: FERR1TAB8 PO (09:52)
[2023-03-25] MEDS ORDERED: MAGN400T2 PO (09:52)
[2023-03-25] MEDS: IRBESARTAN 150MG TAB PO SCH (12:07)
== END 2023-03-25 15:12 | DRG 720 ==
LOC: EDBD 01:26 → M ED 01:26 → M ED INP 04:25 → M ICU 05:18 → M PCU 03-21 22:50
PROVIDERS: ADMIT Internal Medicine Pulmonary Disease; ATTEND Family Medicine
PROC: 5A1955Z Respiratory Ventilation, Greater than 96 Consecutive Hours (ICD-10-PCS; 2023-03-05)
PROC: 02HV43Z Insertion of Infusion Device into Superior Vena Cava, Percutaneous Endoscopic Approach (ICD-10-PCS; 2023-03-05)
PROC: 0B9J8ZX Drainage of Left Lower Lung Lobe, Via Natural or Artificial Opening Endoscopic, Diagnostic (ICD-10-PCS; 2023-03-05)
PROC: 0BH17EZ Insertion of Endotracheal Airway into Trachea, Via Natural or Artificial Opening (ICD-10-PCS; 2023-03-05)
PROC: 30233N1 Transfusion of Nonautologous Red Blood Cells into Peripheral Vein, Percutaneous Approach (ICD-10-PCS; principal; 2023-03-17)
PROC: B246ZZZ Ultrasonography of Right and Left Heart (ICD-10-PCS; 2023-03-17)
DX: A41.9 Sepsis, unspecified organism (principal); K72.00 Acute and subacute hepatic failure without coma; J18.9 Pneumonia, unspecified organism; R65.21 Severe sepsis with septic shock; G93.41 Metabolic encephalopathy; I50.33 Acute on chronic diastolic (congestive) heart failure; J96.01 Acute respiratory failure with hypoxia; N17.9 Acute kidney failure, unspecified; J96.02 Acute respiratory failure with hypercapnia; I11.0 Hypertensive heart disease with heart failure; J44.0 Chronic obstructive pulmonary disease with (acute) lower respiratory infection; J44.1 Chronic obstructive pulmonary disease with (acute) exacerbation; E11.51 Type 2 diabetes mellitus with diabetic peripheral angiopathy without gangrene; E87.1 Hypo-osmolality and hyponatremia; E83.42 Hypomagnesemia; I25.10 Atherosclerotic heart disease of native coronary artery without angina pectoris; I73.9 Peripheral vascular disease, unspecified; E78.5 Hyperlipidemia, unspecified; Z66 Do not resuscitate; M54.9 Dorsalgia, unspecified; E87.6 Hypokalemia; R74.01 Elevation of levels of liver transaminase levels; D50.9 Iron deficiency anemia, unspecified; G89.29 Other chronic pain; G47.33 Obstructive sleep apnea (adult) (pediatric); K21.9 Gastro-esophageal reflux disease without esophagitis; Z95.5 Presence of coronary angioplasty implant and graft; Z95.0 Presence of cardiac pacemaker; Z95.828 Presence of other vascular implants and grafts; Z79.4 Long term (current) use of insulin; Z79.84 Long term (current) use of oral hypoglycemic drugs; Z79.899 Other long term (current) drug therapy; Z87.891 Personal history of nicotine dependence; Z20.822 Contact with and (suspected) exposure to COVID-19; Z79.01 Long term (current) use of anticoagulants; I25.2 Old myocardial infarction

== ENCOUNTER → 2023-03-18 | Outpatient (CLI) | payer MEDICAID, MEDICARE ==
[~2023-03-18] MED LIST changes: +ALBU8.5H PO; +BARIUM SULFATE 700 MG TABLET (E-Z-DISK) As Ordered ONE; +BUPR-71 PO; +E-Z-PAQUE 96% w/w SUSP 176GM BTL As Ordered ONE; +ELIQ5TAB PO; +FERR1TAB8 PO; +FURO40TA2 PO; +IRBE300T7 PO; +JARD1TAB PO; +MAGN400T2 PO; +NOVOINJ3 SC; +OMEP-173 PO; +PARO30TA4 PO; +SYMB16INH INH; +VARIBAR NECTAR 40% w/v 240ML SUSP BTL As Ordered ONE; +VARIBAR PUDDING 40% w/v 230ML TUBE As Ordered ONE; +[UNRECOGNIZED DRUG - REMARK]
== END ==
LOC: M RAD 15:30
PROVIDERS: ATTEND Physician Assistant
DX: I70.59 Other atherosclerosis of nonautologous biological bypass graft(s) of the extremities (principal); I70.611 Atherosclerosis of nonbiological bypass graft(s) of the extremities with intermittent claudication, right leg

== ENCOUNTER 2023-03-25 13:58 | Inpatient (IN) | payer MEDICAID ==
[~2023-03-25] VITALS: Ht 172.7 cm; Wt 87.5 kg
[~2023-03-25 13:58] MED LIST changes: -BARIUM SULFATE 700 MG TABLET (E-Z-DISK) As Ordered ONE; -E-Z-PAQUE 96% w/w SUSP 176GM BTL As Ordered ONE; -VARIBAR NECTAR 40% w/v 240ML SUSP BTL As Ordered ONE; -VARIBAR PUDDING 40% w/v 230ML TUBE As Ordered ONE
[2023-03-25 15:20] VITALS: BP 130/63; TEMP 99.2; O2SAT 94
[2023-03-25] MEDS ORDERED: ACETAMINOPHEN TAB 650MG DOSE (2X325MG) PO PRN (15:30)
[2023-03-25] MEDS ORDERED: ALBUTEROL 90 MCG/ACT 8GM HFA INHALER INH PRN (15:30)
[2023-03-25] MEDS ORDERED: ONDANSETRON 4MG TAB PO PRN (15:30)
[2023-03-25] MEDS ORDERED: BISACODYL 10MG SUPP PR PRN (15:30)
[2023-03-25] MEDS ORDERED: FUROSEMIDE 40MG/4ML VIAL IV SCH (17:00)
[2023-03-25] MEDS: SUCRALFATE SUSP 1GM/10ML UD PO SCH (17:30)
[2023-03-25] MEDS: FUROSEMIDE 40 MG TAB PO SCH (18:01)
[2023-03-25] MEDS: APIXABAN 5 MG TAB (ELIQUIS) PO SCH (18:01)
[2023-03-25] MEDS: COMBIVENT RESPIMAT 100-20MCG INHALER 4GM INH SCH (20:03)
[2023-03-25] MEDS: SYMBICORT 160/4.5MCG INHALER 6GM INH SCH (20:03)
[2023-03-25 20:42] VITALS: BP 138/62; TEMP 98.2; O2SAT 92
[2023-03-25] MEDS: DOCUSATE SODIUM 100MG CAPSULE PO SCH (21:00)
[2023-03-25] MEDS: SENNA 8.6 MG TAB (SENOKOT) PO SCH (21:00)
[2023-03-25] MEDS: REMEDY PHYTOPLEX Z-GUARD PASTE 113GM TUBE (FROM STOREROOM PRODUCT) TOP SCH (21:00)
[2023-03-25] MEDS: POTASSIUM CHLORIDE 10MEQ SR TABLET PO SCH (21:01)
[2023-03-25] MEDS: FERROUS SULFATE 325MG TAB PO SCH (21:01)
[2023-03-25] MEDS: PANTOPRAZOLE 40MG TAB (PROTONIX) PO SCH (21:01)
[2023-03-25] MEDS: buPROPion **SR TABLET** (ZYBAN) 150MG PO SCH (21:01)
[2023-03-25] MEDS: MAGNESIUM OXIDE 400MG TAB (MAG-OX) PO SCH (21:01)
[2023-03-25] MEDS: LEVEMIR (INSULIN DETEMIR) 1 UNITS/0.01ML SC SCH (21:02)
[2023-03-25] MEDS: **hydrALAZINE** 10 MG TAB PO SCH (21:53)
[2023-03-26 00:19] VITALS: O2SAT 87; O2SAT 94
[2023-03-26] MEDS: APIXABAN 5 MG TAB (ELIQUIS) PO SCH ×2 (05:31→17:01)
[2023-03-26] MEDS: **hydrALAZINE** 10 MG TAB PO SCH ×3 (05:32→22:00)
[2023-03-26 06:00] VITALS: BP 155/69; TEMP 97.4; O2SAT 97
[2023-03-26 06:08] LABS: BASO % 0.1 % (0.0-1.0); EOS # 0.1 10^3/uL (0.0-0.5); EOS % 1.6 % (0.0-3.0); HEMOGLOBIN 8.8 g/dl (13.5-17.5); LYMPH # 0.8 10^3/uL (1.5-5.0); MEAN CORPUSCULAR HEMOGLOBIN 27.5 pg (27.0-33.0); MEAN CORPUSCULAR HGB CONC 30.3 g/dl (32.0-36.5); MEAN CORPUSCULAR VOLUME 90.6 fl (80.0-96.0); MONO # 0.7 10^3/uL (0.0-0.8); MONO % 8.3 % (2.0-8.0); NEUTROPHILS # 6.4 10^3/uL (1.5-8.5); NEUTROPHILS % 79.6 % (36.0-66.0); PLATELET COUNT, AUTOMATED 271 10^3/uL (150-450); WHITE BLOOD COUNT 8.1 10^3/uL (4.0-10.0)
[2023-03-26 07:12] LABS: ALBUMIN 2.1 G/DL (3.2-5.2); ALKALINE PHOSPHATASE 118 U/L (46-116); ALT/SGPT 27 U/L (7.0-40); AST/SGOT 17 U/L (<34); BILIRUBIN,TOTAL 0.4 MG/DL (0.3-1.2); BLOOD UREA NITROGEN 12 MG/DL (9-23); CALCIUM LEVEL 7.6 MG/DL (8.3-10.6); CARBON DIOXIDE LEVEL 33 MMOL/L (20-31); CHLORIDE LEVEL 101 MMOL/L (98-107); CREATININE FOR GFR 0.59 MG/DL (0.70-1.30); GLOMERULAR FILTRATION RATE > 60.0 (>49); GLUCOSE, FASTING 126 MG/DL (74-106); POTASSIUM SERUM 3.8 MMOL/L (3.5-5.1); SODIUM LEVEL 140 MMOL/L (136-145)
[2023-03-26 07:13] LABS: TOTAL PROTEIN 5.6 G/DL (5.7-8.2)
[2023-03-26] MEDS: SYMBICORT 160/4.5MCG INHALER 6GM INH SCH ×2 (07:45→17:49)
[2023-03-26] MEDS: COMBIVENT RESPIMAT 100-20MCG INHALER 4GM INH SCH ×4 (07:45→17:49)
[2023-03-26] MEDS: SUCRALFATE SUSP 1GM/10ML UD PO SCH ×4 (08:10→17:04)
[2023-03-26] MEDS: FERROUS SULFATE 325MG TAB PO SCH ×2 (08:11→20:27)
[2023-03-26] MEDS: ATORVASTATIN 20 MG TAB PO SCH (08:11)
[2023-03-26] MEDS: MAGNESIUM OXIDE 400MG TAB (MAG-OX) PO SCH ×2 (08:11→20:27)
[2023-03-26] MEDS: CLOPIDOGREL 75 MG TAB PO SCH (08:11)
[2023-03-26] MEDS: buPROPion **SR TABLET** (ZYBAN) 150MG PO SCH ×2 (08:11→20:27)
[2023-03-26] MEDS: PANTOPRAZOLE 40MG TAB (PROTONIX) PO SCH ×2 (08:11→20:28)
[2023-03-26] MEDS: POTASSIUM CHLORIDE 10MEQ SR TABLET PO SCH ×2 (08:11→20:28)
[2023-03-26] MEDS: FUROSEMIDE 40 MG TAB PO SCH ×2 (08:11→17:02)
[2023-03-26] MEDS: DOCUSATE SODIUM 100MG CAPSULE PO SCH ×2 (08:12→20:27)
[2023-03-26] MEDS: REMEDY PHYTOPLEX Z-GUARD PASTE 113GM TUBE (FROM STOREROOM PRODUCT) TOP SCH ×3 (08:12→20:29)
[2023-03-26] MEDS: IRBESARTAN 150MG TAB PO SCH (08:12)
[2023-03-26] MEDS ORDERED: LEVEMIR (INSULIN DETEMIR) 1 UNITS/0.01ML SC SCH (09:00)
[2023-03-26 13:24] VITALS: BP 125/62; TEMP 98.4; O2SAT 94
[2023-03-26 20:00] VITALS: BP 132/70; TEMP 99.1; O2SAT 94
[2023-03-26] MEDS: SENNA 8.6 MG TAB (SENOKOT) PO SCH (20:27)
[2023-03-26] MEDS: LEVEMIR (INSULIN DETEMIR) 1 UNITS/0.01ML SC SCH (20:28)
[2023-03-26 23:00] VITALS: O2SAT 94
[2023-03-27] MEDS: APIXABAN 5 MG TAB (ELIQUIS) PO SCH ×2 (05:49→17:01)
[2023-03-27] MEDS: **hydrALAZINE** 10 MG TAB PO SCH ×3 (05:49→21:51)
[2023-03-27 06:00] VITALS: BP 155/72; TEMP 95; O2SAT 96
[2023-03-27] MEDS ORDERED: GLUCOSE 4GM CHEW TABLET As Ordered ONE (06:24)
[2023-03-27 07:00] VITALS: TEMP 97.9
[2023-03-27] MEDS ORDERED: GLUCOSE 4GM CHEW TABLET PO ONE (07:00)
[2023-03-27] MEDS: LEVEMIR (INSULIN DETEMIR) 1 UNITS/0.01ML SC SCH ×2 (07:17→21:46)
[2023-03-27] MEDS: SUCRALFATE SUSP 1GM/10ML UD PO SCH ×3 (07:30→17:01)
[2023-03-27] MEDS: IRBESARTAN 150MG TAB PO SCH (07:32)
[2023-03-27] MEDS: SYMBICORT 160/4.5MCG INHALER 6GM INH SCH ×2 (07:32→19:59)
[2023-03-27] MEDS: MAGNESIUM OXIDE 400MG TAB (MAG-OX) PO SCH ×2 (07:32→21:47)
[2023-03-27] MEDS: ATORVASTATIN 20 MG TAB PO SCH (07:33)
[2023-03-27] MEDS: FUROSEMIDE 40 MG TAB PO SCH ×2 (07:33→17:01)
[2023-03-27] MEDS: CLOPIDOGREL 75 MG TAB PO SCH (07:33)
[2023-03-27] MEDS: FERROUS SULFATE 325MG TAB PO SCH ×2 (07:33→21:47)
[2023-03-27] MEDS: buPROPion **SR TABLET** (ZYBAN) 150MG PO SCH ×2 (07:33→21:50)
[2023-03-27] MEDS: POTASSIUM CHLORIDE 10MEQ SR TABLET PO SCH ×2 (07:33→21:48)
[2023-03-27] MEDS: DOCUSATE SODIUM 100MG CAPSULE PO SCH ×2 (07:34→21:47)
[2023-03-27] MEDS: REMEDY PHYTOPLEX Z-GUARD PASTE 113GM TUBE (FROM STOREROOM PRODUCT) TOP SCH ×3 (07:34→21:00)
[2023-03-27] MEDS: PANTOPRAZOLE 40MG TAB (PROTONIX) PO SCH ×2 (07:34→21:48)
[2023-03-27] MEDS: COMBIVENT RESPIMAT 100-20MCG INHALER 4GM INH SCH ×4 (07:39→19:59)
[2023-03-27 11:09] LABS: BASO % 0.1 % (0.0-1.0); EOS # 0.1 10^3/uL (0.0-0.5); EOS % 0.8 % (0.0-3.0); HEMATOCRIT 28.6 % (42.0-52.0); HEMOGLOBIN 8.8 g/dl (13.5-17.5); LYMPH # 0.6 10^3/uL (1.5-5.0); LYMPH % 7.7 % (24.0-44.0); MEAN CORPUSCULAR HEMOGLOBIN 27.5 pg (27.0-33.0); MEAN CORPUSCULAR HGB CONC 30.8 g/dl (32.0-36.5); MEAN CORPUSCULAR VOLUME 89.4 fl (80.0-96.0); MONO # 0.6 10^3/uL (0.0-0.8); MONO % 7.5 % (2.0-8.0); NEUTROPHILS # 6.9 10^3/uL (1.5-8.5); NEUTROPHILS % 83.4 % (36.0-66.0); PLATELET COUNT, AUTOMATED 245 10^3/uL (150-450); WHITE BLOOD COUNT 8.3 10^3/uL (4.0-10.0)
[2023-03-27 11:31] LABS: BLOOD UREA NITROGEN 15 MG/DL (9-23); CALCIUM LEVEL 7.6 MG/DL (8.3-10.6); CARBON DIOXIDE LEVEL 32 MMOL/L (20-31); CHLORIDE LEVEL 100 MMOL/L (98-107); CREATININE FOR GFR 0.61 MG/DL (0.70-1.30); GLOMERULAR FILTRATION RATE > 60.0 (>49); GLUCOSE, FASTING 306 MG/DL (74-106); POTASSIUM SERUM 4.5 MMOL/L (3.5-5.1); SODIUM LEVEL 134 MMOL/L (136-145)
[2023-03-27 14:00] VITALS: BP 137/66; TEMP 98.5; O2SAT 95
[2023-03-27 20:00] VITALS: BP 150/67; TEMP 99.9; O2SAT 94
[2023-03-27] MEDS: SENNA 8.6 MG TAB (SENOKOT) PO SCH (21:47)
[2023-03-28] MEDS: **hydrALAZINE** 10 MG TAB PO SCH ×3 (05:26→21:21)
[2023-03-28] MEDS: APIXABAN 5 MG TAB (ELIQUIS) PO SCH ×2 (05:26→17:41)
[2023-03-28 06:00] VITALS: BP 150/69; TEMP 97.7; O2SAT 95
[2023-03-28] MEDS: SUCRALFATE SUSP 1GM/10ML UD PO SCH ×3 (07:30→17:30)
[2023-03-28] MEDS: SYMBICORT 160/4.5MCG INHALER 6GM INH SCH ×2 (07:33→20:44)
[2023-03-28] MEDS: COMBIVENT RESPIMAT 100-20MCG INHALER 4GM INH SCH ×4 (07:33→20:44)
[2023-03-28] MEDS: CLOPIDOGREL 75 MG TAB PO SCH (07:40)
[2023-03-28] MEDS: MAGNESIUM OXIDE 400MG TAB (MAG-OX) PO SCH ×2 (07:40→20:40)
[2023-03-28] MEDS: PANTOPRAZOLE 40MG TAB (PROTONIX) PO SCH ×2 (07:40→20:41)
[2023-03-28] MEDS: ATORVASTATIN 20 MG TAB PO SCH (07:41)
[2023-03-28] MEDS: POTASSIUM CHLORIDE 10MEQ SR TABLET PO SCH ×2 (07:41→20:41)
[2023-03-28] MEDS: FERROUS SULFATE 325MG TAB PO SCH ×2 (07:41→20:40)
[2023-03-28] MEDS: buPROPion **SR TABLET** (ZYBAN) 150MG PO SCH ×2 (07:42→20:42)
[2023-03-28] MEDS: IRBESARTAN 150MG TAB PO SCH (07:42)
[2023-03-28] MEDS: FUROSEMIDE 40 MG TAB PO SCH ×2 (07:42→17:41)
[2023-03-28] MEDS: LEVEMIR (INSULIN DETEMIR) 1 UNITS/0.01ML SC SCH ×2 (07:43→20:42)
[2023-03-28] MEDS: DOCUSATE SODIUM 100MG CAPSULE PO SCH ×2 (07:43→21:00)
[2023-03-28] MEDS: REMEDY PHYTOPLEX Z-GUARD PASTE 113GM TUBE (FROM STOREROOM PRODUCT) TOP SCH ×3 (07:44→21:00)
[2023-03-28 14:00] VITALS: BP 116/58; TEMP 97.8; O2SAT 94
[2023-03-28 20:00] VITALS: BP 151/70; TEMP 99.1; O2SAT 95
[2023-03-28] MEDS: LIDOCAINE 5% (LIDODERM) PATCH TD SCH (20:40)
[2023-03-28] MEDS: SENNA 8.6 MG TAB (SENOKOT) PO SCH (21:00)
[2023-03-28 21:20] VITALS: BP 152/76
[2023-03-29] MEDS: APIXABAN 5 MG TAB (ELIQUIS) PO SCH ×2 (05:17→17:02)
[2023-03-29] MEDS: **hydrALAZINE** 10 MG TAB PO SCH ×3 (05:18→20:43)
[2023-03-29 06:03] VITALS: BP 132/68; TEMP 98; O2SAT 96
[2023-03-29] MEDS: SYMBICORT 160/4.5MCG INHALER 6GM INH SCH ×2 (07:22→20:16)
[2023-03-29] MEDS: COMBIVENT RESPIMAT 100-20MCG INHALER 4GM INH SCH ×4 (07:22→20:15)
[2023-03-29] MEDS: SUCRALFATE SUSP 1GM/10ML UD PO SCH ×3 (07:30→17:02)
[2023-03-29] MEDS: DOCUSATE SODIUM 100MG CAPSULE PO SCH ×2 (09:00→20:41)
[2023-03-29] MEDS: REMEDY PHYTOPLEX Z-GUARD PASTE 113GM TUBE (FROM STOREROOM PRODUCT) TOP SCH ×3 (09:00→20:42)
[2023-03-29] MEDS: FUROSEMIDE 40 MG TAB PO SCH ×2 (09:02→17:02)
[2023-03-29] MEDS: PANTOPRAZOLE 40MG TAB (PROTONIX) PO SCH ×2 (09:03→20:41)
[2023-03-29] MEDS: IRBESARTAN 150MG TAB PO SCH (09:03)
[2023-03-29] MEDS: buPROPion **SR TABLET** (ZYBAN) 150MG PO SCH ×2 (09:03→20:42)
[2023-03-29] MEDS: MAGNESIUM OXIDE 400MG TAB (MAG-OX) PO SCH ×2 (09:03→20:42)
[2023-03-29] MEDS: CLOPIDOGREL 75 MG TAB PO SCH (09:04)
[2023-03-29] MEDS: ATORVASTATIN 20 MG TAB PO SCH (09:04)
[2023-03-29] MEDS: POTASSIUM CHLORIDE 10MEQ SR TABLET PO SCH ×2 (09:04→20:42)
[2023-03-29] MEDS: LEVEMIR (INSULIN DETEMIR) 1 UNITS/0.01ML SC SCH ×2 (09:05→20:41)
[2023-03-29] MEDS: FERROUS SULFATE 325MG TAB PO SCH ×2 (09:05→20:41)
[2023-03-29 14:00] VITALS: BP 129/62; TEMP 98; O2SAT 97
[2023-03-29 20:00] VITALS: BP 140/63; TEMP 98.1; O2SAT 98
[2023-03-29] MEDS: LIDOCAINE 5% (LIDODERM) PATCH TD SCH (20:41)
[2023-03-29] MEDS: SENNA 8.6 MG TAB (SENOKOT) PO SCH (20:42)
[2023-03-30] MEDS: APIXABAN 5 MG TAB (ELIQUIS) PO SCH ×2 (05:37→17:25)
[2023-03-30] MEDS: **hydrALAZINE** 10 MG TAB PO SCH ×3 (05:37→21:54)
[2023-03-30 06:00] VITALS: BP 131/63; TEMP 98.2; O2SAT 97
[2023-03-30] MEDS: SUCRALFATE SUSP 1GM/10ML UD PO SCH ×3 (07:30→16:40)
[2023-03-30] MEDS: COMBIVENT RESPIMAT 100-20MCG INHALER 4GM INH SCH ×4 (08:00→20:24)
[2023-03-30] MEDS: FUROSEMIDE 40 MG TAB PO SCH ×2 (08:36→16:41)
[2023-03-30] MEDS: buPROPion **SR TABLET** (ZYBAN) 150MG PO SCH ×2 (08:36→20:38)
[2023-03-30] MEDS: IRBESARTAN 150MG TAB PO SCH (08:36)
[2023-03-30] MEDS: POTASSIUM CHLORIDE 10MEQ SR TABLET PO SCH ×2 (08:37→20:38)
[2023-03-30] MEDS: CLOPIDOGREL 75 MG TAB PO SCH (08:37)
[2023-03-30] MEDS: MAGNESIUM OXIDE 400MG TAB (MAG-OX) PO SCH ×2 (08:37→20:37)
[2023-03-30] MEDS: ATORVASTATIN 20 MG TAB PO SCH (08:37)
[2023-03-30] MEDS: PANTOPRAZOLE 40MG TAB (PROTONIX) PO SCH ×2 (08:37→20:37)
[2023-03-30] MEDS: FERROUS SULFATE 325MG TAB PO SCH ×2 (08:38→20:37)
[2023-03-30] MEDS: LEVEMIR (INSULIN DETEMIR) 1 UNITS/0.01ML SC SCH ×2 (08:38→20:38)
[2023-03-30] MEDS: REMEDY PHYTOPLEX Z-GUARD PASTE 113GM TUBE (FROM STOREROOM PRODUCT) TOP SCH ×3 (08:38→20:18)
[2023-03-30] MEDS: SYMBICORT 160/4.5MCG INHALER 6GM INH SCH ×2 (08:48→20:24)
[2023-03-30 08:53] VITALS: O2SAT 98
[2023-03-30] MEDS: DOCUSATE SODIUM 100MG CAPSULE PO SCH ×2 (08:59→20:17)
[2023-03-30 12:13] LABS: BASO % 0.1 % (0.0-1.0); EOS # 0.1 10^3/uL (0.0-0.5); EOS % 0.7 % (0.0-3.0); HEMATOCRIT 29.1 % (42.0-52.0); HEMOGLOBIN 8.8 g/dl (13.5-17.5); LYMPH # 0.8 10^3/uL (1.5-5.0); LYMPH % 11.7 % (24.0-44.0); MEAN CORPUSCULAR HEMOGLOBIN 26.7 pg (27.0-33.0); MEAN CORPUSCULAR HGB CONC 30.2 g/dl (32.0-36.5); MEAN CORPUSCULAR VOLUME 88.2 fl (80.0-96.0); MONO # 0.6 10^3/uL (0.0-0.8); MONO % 8.2 % (2.0-8.0); NEUTROPHILS # 5.5 10^3/uL (1.5-8.5); NEUTROPHILS % 78.7 % (36.0-66.0); PLATELET COUNT, AUTOMATED 259 10^3/uL (150-450)
[2023-03-30 12:43] LABS: BLOOD UREA NITROGEN 15 MG/DL (9-23); CALCIUM LEVEL 8.2 MG/DL (8.3-10.6); CARBON DIOXIDE LEVEL 30 MMOL/L (20-31); CHLORIDE LEVEL 96 MMOL/L (98-107); CREATININE FOR GFR 0.67 MG/DL (0.70-1.30); GLOMERULAR FILTRATION RATE > 60.0 (>49); GLUCOSE, FASTING 355 MG/DL (74-106); POTASSIUM SERUM 4.6 MMOL/L (3.5-5.1); SODIUM LEVEL 131 MMOL/L (136-145)
[2023-03-30 14:00] VITALS: BP 129/60; TEMP 98.7; O2SAT 95
[2023-03-30] MEDS ORDERED: LEVEMIR (INSULIN DETEMIR) 1 UNITS/0.01ML SC ONE ×2 (14:20→17:20)
[2023-03-30] MEDS ORDERED: GLUCOSE 4GM CHEW TABLET PO PRN (14:25)
[2023-03-30] MEDS ORDERED: DEXTROSE 50% 50ML SYRINGE IV PRN (14:25)
[2023-03-30] MEDS ORDERED: GLUCAGON INJ 1MG VIAL SC PRN (14:25)
[2023-03-30] MEDS: INSULIN LISPRO (NovoLOG) PER UNIT SC SCH ×2 (16:40→20:39)
[2023-03-30 20:00] VITALS: BP 139/64; TEMP 98.1; O2SAT 96
[2023-03-30] MEDS: SENNA 8.6 MG TAB (SENOKOT) PO SCH (20:17)
[2023-03-30] MEDS: LIDOCAINE 5% (LIDODERM) PATCH TD SCH (20:38)
[2023-03-31] MEDS: **hydrALAZINE** 10 MG TAB PO SCH ×3 (05:26→21:46)
[2023-03-31] MEDS: APIXABAN 5 MG TAB (ELIQUIS) PO SCH ×2 (05:28→17:08)
[2023-03-31 06:00] VITALS: BP 137/62; TEMP 97.2; O2SAT 98
[2023-03-31 06:46] LABS: BLOOD UREA NITROGEN 13 MG/DL (9-23); CALCIUM LEVEL 8.1 MG/DL (8.3-10.6); CARBON DIOXIDE LEVEL 33 MMOL/L (20-31); CHLORIDE LEVEL 98 MMOL/L (98-107); CREATININE FOR GFR 0.65 MG/DL (0.70-1.30); GLOMERULAR FILTRATION RATE > 60.0 (>49); GLUCOSE, FASTING 116 MG/DL (74-106); POTASSIUM SERUM 4.3 MMOL/L (3.5-5.1); SODIUM LEVEL 136 MMOL/L (136-145)
[2023-03-31] MEDS: SUCRALFATE SUSP 1GM/10ML UD PO SCH ×3 (07:30→17:09)
[2023-03-31] MEDS: COMBIVENT RESPIMAT 100-20MCG INHALER 4GM INH SCH ×4 (07:44→21:03)
[2023-03-31] MEDS: SYMBICORT 160/4.5MCG INHALER 6GM INH SCH ×2 (07:45→21:04)
[2023-03-31] MEDS: buPROPion **SR TABLET** (ZYBAN) 150MG PO SCH ×2 (08:18→20:12)
[2023-03-31] MEDS: POTASSIUM CHLORIDE 10MEQ SR TABLET PO SCH ×2 (08:18→20:12)
[2023-03-31] MEDS: ATORVASTATIN 20 MG TAB PO SCH (08:19)
[2023-03-31] MEDS: FUROSEMIDE 40 MG TAB PO SCH ×2 (08:19→17:08)
[2023-03-31] MEDS: DOCUSATE SODIUM 100MG CAPSULE PO SCH ×2 (08:19→20:00)
[2023-03-31] MEDS: MAGNESIUM OXIDE 400MG TAB (MAG-OX) PO SCH ×2 (08:19→20:12)
[2023-03-31] MEDS: FERROUS SULFATE 325MG TAB PO SCH ×2 (08:19→20:12)
[2023-03-31] MEDS: IRBESARTAN 150MG TAB PO SCH (08:19)
[2023-03-31] MEDS: LEVEMIR (INSULIN DETEMIR) 1 UNITS/0.01ML SC SCH ×2 (08:20→20:12)
[2023-03-31] MEDS: INSULIN LISPRO (NovoLOG) PER UNIT SC SCH ×4 (08:20→20:11)
[2023-03-31] MEDS: REMEDY PHYTOPLEX Z-GUARD PASTE 113GM TUBE (FROM STOREROOM PRODUCT) TOP SCH ×3 (08:20→20:01)
[2023-03-31] MEDS: PANTOPRAZOLE 40MG TAB (PROTONIX) PO SCH ×2 (08:21→20:13)
[2023-03-31] MEDS: CLOPIDOGREL 75 MG TAB PO SCH (08:21)
[2023-03-31] MEDS ORDERED: LEVEMIR (INSULIN DETEMIR) 1 UNITS/0.01ML SC ONE (09:40)
[2023-03-31 14:00] VITALS: BP 105/59; TEMP 98.5; O2SAT 97
[2023-03-31 20:00] VITALS: BP 138/65; TEMP 98; O2SAT 95
[2023-03-31] MEDS: SENNA 8.6 MG TAB (SENOKOT) PO SCH (20:00)
[2023-03-31] MEDS: LIDOCAINE 5% (LIDODERM) PATCH TD SCH (20:12)
[2023-04-01] MEDS: **hydrALAZINE** 10 MG TAB PO SCH ×3 (05:50→21:28)
[2023-04-01] MEDS: APIXABAN 5 MG TAB (ELIQUIS) PO SCH ×2 (05:55→17:36)
[2023-04-01 06:00] VITALS: BP 134/64; TEMP 97.6; O2SAT 99
[2023-04-01 06:18] LABS: BASO % 0.1 % (0.0-1.0); EOS # 0.1 10^3/uL (0.0-0.5); EOS % 0.9 % (0.0-3.0); HEMATOCRIT 26.4 % (42.0-52.0); HEMOGLOBIN 8.1 g/dl (13.5-17.5); LYMPH # 0.9 10^3/uL (1.5-5.0); LYMPH % 13.2 % (24.0-44.0); MEAN CORPUSCULAR HEMOGLOBIN 26.6 pg (27.0-33.0); MEAN CORPUSCULAR HGB CONC 30.7 g/dl (32.0-36.5); MEAN CORPUSCULAR VOLUME 86.8 fl (80.0-96.0); MONO # 0.5 10^3/uL (0.0-0.8); NEUTROPHILS # 5.2 10^3/uL (1.5-8.5); NEUTROPHILS % 77.2 % (36.0-66.0); PLATELET COUNT, AUTOMATED 259 10^3/uL (150-450); RED BLOOD COUNT 3.04 10^6/uL (4.30-6.10); WHITE BLOOD COUNT 6.7 10^3/uL (4.0-10.0)
[2023-04-01 06:51] LABS: BLOOD UREA NITROGEN 12 MG/DL (9-23); CARBON DIOXIDE LEVEL 33 MMOL/L (20-31); CHLORIDE LEVEL 98 MMOL/L (98-107); CREATININE FOR GFR 0.65 MG/DL (0.70-1.30); GLOMERULAR FILTRATION RATE > 60.0 (>49); GLUCOSE, FASTING 243 MG/DL (74-106); POTASSIUM SERUM 4.7 MMOL/L (3.5-5.1); SODIUM LEVEL 135 MMOL/L (136-145)
[2023-04-01] MEDS: SYMBICORT 160/4.5MCG INHALER 6GM INH SCH ×2 (07:12→21:12)
[2023-04-01] MEDS: COMBIVENT RESPIMAT 100-20MCG INHALER 4GM INH SCH ×4 (07:13→21:12)
[2023-04-01] MEDS: SUCRALFATE SUSP 1GM/10ML UD PO SCH ×3 (07:30→17:30)
[2023-04-01] MEDS: FERROUS SULFATE 325MG TAB PO SCH ×2 (08:21→20:06)
[2023-04-01] MEDS: POTASSIUM CHLORIDE 10MEQ SR TABLET PO SCH ×2 (08:21→20:06)
[2023-04-01] MEDS: buPROPion **SR TABLET** (ZYBAN) 150MG PO SCH ×2 (08:21→20:06)
[2023-04-01] MEDS: ATORVASTATIN 20 MG TAB PO SCH (08:22)
[2023-04-01] MEDS: IRBESARTAN 150MG TAB PO SCH (08:22)
[2023-04-01] MEDS: FUROSEMIDE 40 MG TAB PO SCH ×2 (08:22→17:36)
[2023-04-01] MEDS: CLOPIDOGREL 75 MG TAB PO SCH (08:22)
[2023-04-01] MEDS: MAGNESIUM OXIDE 400MG TAB (MAG-OX) PO SCH ×2 (08:22→20:06)
[2023-04-01] MEDS: PANTOPRAZOLE 40MG TAB (PROTONIX) PO SCH ×2 (08:22→20:06)
[2023-04-01] MEDS: INSULIN LISPRO (NovoLOG) PER UNIT SC SCH ×4 (08:23→20:07)
[2023-04-01] MEDS: DOCUSATE SODIUM 100MG CAPSULE PO SCH ×2 (08:24→20:07)
[2023-04-01] MEDS: REMEDY PHYTOPLEX Z-GUARD PASTE 113GM TUBE (FROM STOREROOM PRODUCT) TOP SCH ×3 (08:24→20:08)
[2023-04-01] MEDS ORDERED: LEVEMIR (INSULIN DETEMIR) 1 UNITS/0.01ML SC SCH ×3 (09:00→21:00)
[2023-04-01] MEDS ORDERED: LEVEMIR (INSULIN DETEMIR) 1 UNITS/0.01ML SC ONE (09:40)
[2023-04-01 14:00] VITALS: BP 116/59; TEMP 98.1; O2SAT 95
[2023-04-01 20:00] VITALS: BP 130/59; TEMP 96.6; O2SAT 95
[2023-04-01] MEDS: LEVEMIR (INSULIN DETEMIR) 1 UNITS/0.01ML SC SCH (20:07)
[2023-04-01] MEDS: SENNA 8.6 MG TAB (SENOKOT) PO SCH (20:07)
[2023-04-01] MEDS: LIDOCAINE 5% (LIDODERM) PATCH TD SCH (20:08)
[2023-04-02] MEDS ORDERED: LIDOCAINE 5% (LIDODERM) PATCH TD PRN (04:00)
[2023-04-02] MEDS: LIDOCAINE 5% (LIDODERM) PATCH TD SCH (04:02)
[2023-04-02 05:29] VITALS: BP 127/66
[2023-04-02] MEDS: APIXABAN 5 MG TAB (ELIQUIS) PO SCH (05:29)
[2023-04-02] MEDS: **hydrALAZINE** 10 MG TAB PO SCH (05:29)
[2023-04-02 06:00] VITALS: BP 127/66; TEMP 98.2; O2SAT 95
[2023-04-02] MEDS: SUCRALFATE SUSP 1GM/10ML UD PO SCH ×2 (07:30→12:00)
[2023-04-02] MEDS: INSULIN LISPRO (NovoLOG) PER UNIT SC SCH ×2 (07:30→12:00)
[2023-04-02] MEDS: SYMBICORT 160/4.5MCG INHALER 6GM INH SCH (07:47)
[2023-04-02] MEDS: COMBIVENT RESPIMAT 100-20MCG INHALER 4GM INH SCH ×2 (07:47→11:13)
[2023-04-02] MEDS: LEVEMIR (INSULIN DETEMIR) 1 UNITS/0.01ML SC SCH (08:00)
[2023-04-02] MEDS: PANTOPRAZOLE 40MG TAB (PROTONIX) PO SCH (08:16)
[2023-04-02] MEDS: CLOPIDOGREL 75 MG TAB PO SCH (08:16)
[2023-04-02] MEDS: MAGNESIUM OXIDE 400MG TAB (MAG-OX) PO SCH (08:16)
[2023-04-02] MEDS: FERROUS SULFATE 325MG TAB PO SCH (08:16)
[2023-04-02] MEDS: ATORVASTATIN 20 MG TAB PO SCH (08:16)
[2023-04-02] MEDS: FUROSEMIDE 40 MG TAB PO SCH (08:16)
[2023-04-02] MEDS: POTASSIUM CHLORIDE 10MEQ SR TABLET PO SCH (08:16)
[2023-04-02] MEDS: buPROPion **SR TABLET** (ZYBAN) 150MG PO SCH (08:17)
[2023-04-02] MEDS: REMEDY PHYTOPLEX Z-GUARD PASTE 113GM TUBE (FROM STOREROOM PRODUCT) TOP SCH (08:17)
[2023-04-02] MEDS: IRBESARTAN 150MG TAB PO SCH (08:17)
[2023-04-02] MEDS: DOCUSATE SODIUM 100MG CAPSULE PO SCH (08:17)
[2023-04-02] MEDS ORDERED: INSUHUMDS SC (09:19)
[2023-04-02] MEDS ORDERED: HYDR10TAB PO (09:19)
[2023-04-02] MEDS ORDERED: MAGN400T2 PO (09:19)
[2023-04-02] MEDS ORDERED: POTA-136 PO (09:19)
[2023-04-02] MEDS ORDERED: ALBU8.5H PO (09:19)
[2023-04-02] MEDS ORDERED: BUPR-71 PO (09:19)
[2023-04-02] MEDS ORDERED: INSUDET SC (09:19)
[2023-04-02] MEDS ORDERED: CLOP75TA2 PO (09:19)
[2023-04-02] MEDS ORDERED: FURO40TA2 PO (09:19)
[2023-04-02] MEDS ORDERED: AMLO1TAB25 PO (09:19)
[2023-04-02] MEDS ORDERED: JARD1TAB PO (09:19)
[2023-04-02] MEDS ORDERED: IRBE300T7 PO (09:19)
[2023-04-02] MEDS ORDERED: PANT40TA29 PO (09:19)
[2023-04-02] MEDS ORDERED: ELIQ5TAB PO (09:19)
[2023-04-02] MEDS ORDERED: SYMB16INH INH (09:19)
[2023-04-02] MEDS ORDERED: ATOR40TA75 PO (09:19)
== END 2023-04-02 12:30 | disposition home health service (06) | DRG 58 ==
LOC: M PM&R 15:20
PROVIDERS: ADMIT Physical Medicine & Rehabilitation; ATTEND Physical Medicine & Rehabilitation
DX: G72.81 Critical illness myopathy (principal); I50.33 Acute on chronic diastolic (congestive) heart failure; E11.51 Type 2 diabetes mellitus with diabetic peripheral angiopathy without gangrene; E11.649 Type 2 diabetes mellitus with hypoglycemia without coma; I11.0 Hypertensive heart disease with heart failure; R13.10 Dysphagia, unspecified; I25.10 Atherosclerotic heart disease of native coronary artery without angina pectoris; I25.2 Old myocardial infarction; E78.5 Hyperlipidemia, unspecified; K21.9 Gastro-esophageal reflux disease without esophagitis; G47.33 Obstructive sleep apnea (adult) (pediatric); H91.92 Unspecified hearing loss, left ear; M54.9 Dorsalgia, unspecified; G89.29 Other chronic pain; R53.1 Weakness; Z95.0 Presence of cardiac pacemaker; Z74.09 Other reduced mobility; Z74.1 Need for assistance with personal care; Z87.891 Personal history of nicotine dependence; Z79.01 Long term (current) use of anticoagulants; Z79.02 Long term (current) use of antithrombotics/antiplatelets; Z79.4 Long term (current) use of insulin; Z79.899 Other long term (current) drug therapy; Z66 Do not resuscitate; J44.9 Chronic obstructive pulmonary disease, unspecified; Z95.828 Presence of other vascular implants and grafts

== ENCOUNTER → 2023-04-17 | Outpatient (CLI) | payer MEDICAID ==
[~2023-04-17] MED LIST changes: +HYDR10TAB PO; +PANT40TA29 PO; +POTA-136 PO
[2023-04-17 10:57] LABS: APPEARANCE, URINE CLEAR (CLEAR); BACTERIA, URINE AUTO NEGATIVE (NEGATIVE); BASO % 0.4 % (0.0-1.0); BILIRUBIN, URINE AUTO NEGATIVE (NEGATIVE); BLOOD, URINE BLOOD NEGATIVE (NEGATIVE); COLOR, URINE STRAW (YELLOW); EOS # 0.1 10^3/uL (0.0-0.5); EOS % 1.2 % (0.0-3.0); GLUCOSE, URINE (UA) AUTO 3+ mg/dL (NEGATIVE); HEMATOCRIT 35.2 % (42.0-52.0); HEMOGLOBIN 10.7 g/dl (13.5-17.5); KETONE, URINE AUTO NEGATIVE (NEGATIVE); LEUKOCYTE ESTERASE, URINE AUTO NEGATIVE (NEGATIVE); LYMPH # 1.7 10^3/uL (1.5-5.0); LYMPH % 16.7 % (24.0-44.0); MEAN CORPUSCULAR HEMOGLOBIN 25.9 pg (27.0-33.0); MEAN CORPUSCULAR HGB CONC 30.4 g/dl (32.0-36.5); MEAN CORPUSCULAR VOLUME 85.2 fl (80.0-96.0); MONO # 0.7 10^3/uL (0.0-0.8); MONO % 6.8 % (2.0-8.0); NEUTROPHILS # 7.7 10^3/uL (1.5-8.5); NITRITE, URINE AUTO NEGATIVE (NEGATIVE); PLATELET COUNT, AUTOMATED 396 10^3/uL (150-450); PROTEIN, URINE AUTO NEGATIVE (NEGATIVE); RBC, URINE AUTO 0 /HPF (0-3); RED BLOOD COUNT 4.13 10^6/uL (4.30-6.10); SPECIFIC GRAVITY URINE AUTO 1.008 (1.002-1.035); SQUAMOUS EPITHELIAL CELL UR AU 0 /HPF (0-6); UROBILINOGEN, URINE AUTO 0.2 mg/dL (0.0-2.0); WBC, URINE AUTO 0 /HPF (0-3); WHITE BLOOD COUNT 10.3 10^3/uL (4.0-10.0)
[2023-04-17 11:21] LABS: ALBUMIN 3.1 G/DL (3.2-5.2); BLOOD UREA NITROGEN 23 MG/DL (9-23); CALCIUM LEVEL 9.5 MG/DL (8.3-10.6); CARBON DIOXIDE LEVEL 30 MMOL/L (20-31); CHLORIDE LEVEL 97 MMOL/L (98-107); CREATININE FOR GFR 0.78 MG/DL (0.70-1.30); GLOMERULAR FILTRATION RATE > 60.0 (>49); GLUCOSE, FASTING 204 MG/DL (74-106); PHOSPHORUS LEVEL 4.7 MG/DL (2.4-5.1); POTASSIUM SERUM 4.8 MMOL/L (3.5-5.1); SODIUM LEVEL 136 MMOL/L (136-145)
[2023-04-17 11:23] LABS: PTH INTACT 84.2 PG/ML (18.5-88.0)
== END ==
LOC: M WUC 08:33
PROVIDERS: ATTEND Internal Medicine Nephrology
DX: N18.32 Chronic kidney disease, stage 3b (principal); N25.81 Secondary hyperparathyroidism of renal origin; D63.1 Anemia in chronic kidney disease

== ENCOUNTER 2023-05-18 12:26 | Day surgery (SDC) | payer MEDICAID ==
[~2023-05-18] VITALS: Ht 170.2 cm; Wt 84.8 kg
[~2023-05-18 12:26] MED LIST changes: +BSS IRRIG/VANCO(10MG)/TOBRA(5MG)/EPINEPH(1:1000-0.5CC)500ML BAG-ORONLY IR ONE; +BUPR150T12 PO; +CYCLOPENTOLATE 1% OPHTH SOLN 2ML BTL OD SCH; +LIDOCAINE 3.5 % 1ML OPHTH TOPICAL GEL OU ONE; +MAGN400C PO; +MIDAZOLAM INJ 2MG/2ML VIAL As Ordered ONE; +OFLOXACIN 0.3 % (OCUFLOX) OPTH SOL 5ML OD ONE; +PHENYLEPHRINE 10% OPHTH SOL 5ML OD PRN; +PHENYLEPHRINE 2.5% OPHTH SOL 2ML OD SCH; +POTA-164 PO; +TROPICAMIDE 1% OPHTH SOLN 15ML OD SCH; +fentaNYL 100 MCG/2 ML INJECTION As Ordered ONE
[2023-05-18] MEDS ORDERED: TRAZ1TAB14 (13:45)
[2023-05-18] MEDS ORDERED: LIDOCAINE 1% SDV 5ML VIAL As Ordered ONE (13:58)
[2023-05-18] MEDS ORDERED: CEFUROXIME 1MG/0.1ML INTRACAMERAL INJ As Ordered ONE (13:59)
[2023-05-18] MEDS ORDERED: TRYPAN BLUE 0.06 % 2.25 ML OPHTH SYR (VISIONBLUE) As Ordered ONE ×2 (14:19→14:22)
[2023-05-18 14:50] VITALS: BP 119/62; TEMP 98.7; O2SAT 92
== END 2023-05-18 15:18 | disposition home or self-care (01) ==
LOC: M SDC 12:26
PROVIDERS: ATTEND Ophthalmology
DX: H25.11 Age-related nuclear cataract, right eye (principal); H57.03 Miosis; I25.2 Old myocardial infarction; I10 Essential (primary) hypertension; I25.10 Atherosclerotic heart disease of native coronary artery without angina pectoris; Z95.0 Presence of cardiac pacemaker; G47.30 Sleep apnea, unspecified; Z79.899 Other long term (current) drug therapy; Z79.01 Long term (current) use of anticoagulants
CPT/HCPCS: 66982; J0697; J2250; J3010

== ENCOUNTER 2023-06-12 10:33 | Emergency (ER) | payer MEDICAID, MEDICARE, OTHER ==
[~2023-06-12] VITALS: Ht 170.2 cm; Wt 84.1 kg
[~2023-06-12 10:33] MED LIST changes: -BSS IRRIG/VANCO(10MG)/TOBRA(5MG)/EPINEPH(1:1000-0.5CC)500ML BAG-ORONLY IR ONE; -CYCLOPENTOLATE 1% OPHTH SOLN 2ML BTL OD SCH; -LIDOCAINE 3.5 % 1ML OPHTH TOPICAL GEL OU ONE; -MIDAZOLAM INJ 2MG/2ML VIAL As Ordered ONE; -OFLOXACIN 0.3 % (OCUFLOX) OPTH SOL 5ML OD ONE; -PHENYLEPHRINE 10% OPHTH SOL 5ML OD PRN; -PHENYLEPHRINE 2.5% OPHTH SOL 2ML OD SCH; -PREG150C PO; +PREG150C2 PO; +TRAZ1TAB14 PO; -TROPICAMIDE 1% OPHTH SOLN 15ML OD SCH; -fentaNYL 100 MCG/2 ML INJECTION As Ordered ONE
[2023-06-12] MEDS ORDERED: NORCO, ANEXSIA 5/325MG TABLET (HYDROcodone/ACETAMINOPHEN) PO ONE ×2 (12:30→17:25)
[2023-06-12] MEDS ORDERED: ISOVUE-370 76% 100ML VIAL As Ordered ONE (13:10)
[2023-06-12 13:24] LABS: BASO % 0.3 % (0.0-1.0); EOS # 0.1 10^3/uL (0.0-0.5); EOS % 1.6 % (0.0-3.0); HEMATOCRIT 42.5 % (42.0-52.0); HEMOGLOBIN 13.5 g/dl (13.5-17.5); LYMPH # 1.2 10^3/uL (1.5-5.0); LYMPH % 16.2 % (24.0-44.0); MEAN CORPUSCULAR HEMOGLOBIN 26.5 pg (27.0-33.0); MEAN CORPUSCULAR HGB CONC 31.8 g/dl (32.0-36.5); MEAN CORPUSCULAR VOLUME 83.5 fl (80.0-96.0); MONO # 0.5 10^3/uL (0.0-0.8); MONO % 6.8 % (2.0-8.0); NEUTROPHILS # 5.5 10^3/uL (1.5-8.5); NEUTROPHILS % 74.4 % (36.0-66.0); PLATELET COUNT, AUTOMATED 247 10^3/uL (150-450); RED BLOOD COUNT 5.09 10^6/uL (4.30-6.10); WHITE BLOOD COUNT 7.4 10^3/uL (4.0-10.0)
[2023-06-12 13:37] LABS: INR 1.06; PROTHROMBIN TIME 13.5 SECONDS (12.5-14.5)
[2023-06-12 13:38] LABS: PARTIAL THROMBOPLASTIN TIME 29.2 SECONDS (24.8-34.2)
[2023-06-12 13:50] LABS: ALKALINE PHOSPHATASE 162 U/L (46-116); ALT/SGPT 21 U/L (7.0-40); AST/SGOT < 8 U/L (<34); BILIRUBIN,DIRECT < 0.1 MG/DL (<0.4); BILIRUBIN,TOTAL 0.3 MG/DL (0.3-1.2); TOTAL PROTEIN 7.6 G/DL (5.7-8.2)
[2023-06-12 16:25] VITALS: BP 184/88; TEMP 97.8
[2023-06-12] MEDS ORDERED: HYDR-3713 PO (16:50)
[2023-06-12 17:48] VITALS: O2SAT 96
[2023-06-19] MEDS ORDERED: METF750T36 PO (09:39)
[2023-06-19] MEDS ORDERED: PREDOPD OD (09:39)
[2023-06-19] MEDS ORDERED: AMLO1TAB25 PO (09:42)
[2023-06-19] MEDS ORDERED: ELIQ5TAB PO (09:44)
[2023-06-19] MEDS ORDERED: ATOR40TA75 PO (09:45)
[2023-06-19] MEDS ORDERED: SYMB16INH INH (09:46)
[2023-06-19] MEDS ORDERED: BUPR15TASR PO (09:48)
[2023-06-19] MEDS ORDERED: CLOP75TA2 PO (09:49)
[2023-06-19] MEDS ORDERED: JARD1TAB PO (09:51)
[2023-06-19] MEDS ORDERED: FERR325T3 PO (09:52)
[2023-06-19] MEDS ORDERED: FURO40TA2 PO (09:53)
[2023-06-19] MEDS ORDERED: IRBE300T7 PO (09:57)
[2023-06-19] MEDS ORDERED: MAGN400T2 PO (09:59)
[2023-06-19] MEDS ORDERED: PANT40TA29 PO (10:01)
== END 2023-06-12 17:50 | disposition left against medical advice (07) ==
LOC: M ED 10:33
DX: I70.92 Chronic total occlusion of artery of the extremities (principal); Z53.20 Procedure and treatment not carried out because of patient's decision for unspecified reasons; I25.2 Old myocardial infarction; E11.9 Type 2 diabetes mellitus without complications; Z79.4 Long term (current) use of insulin; I10 Essential (primary) hypertension; E78.5 Hyperlipidemia, unspecified; G47.33 Obstructive sleep apnea (adult) (pediatric); Z95.5 Presence of coronary angioplasty implant and graft; Z79.01 Long term (current) use of anticoagulants; Z79.899 Other long term (current) drug therapy
CPT/HCPCS: 36415; 75635; 80047; 80076; 85025; 85610; 85730; 99284; Q9967